=== PATIENT | male | born 1960 | race Caucasian/White ===

== ENCOUNTER 2016-07-09 21:31 | Emergency (ER) | payer MEDICARE ==
[~2016-07-09] VITALS: Ht 157.4 cm
[~2016-07-09 21:31] MED LIST: ASPIRIN81 M1 PO; BACTROBAN CREAM15 GM T; CLEOCIN150 MG PO; FLUOXETINE20 MG PO; GEODON20 MG PO; HUMALOG100 U/ML SC; LANTUS100 U/ML SC; LIPITOR40 MG PO; MIRALAX POWDER17 G1 PO; NEURONTIN100 MG PO; NEURONTIN300 MG PO; PRINIVIL5 MG PO; PROTONIX40 MG PO; PROZAC40 M1 PO; SENOKOT1 TAB PO; TRAZODONE50 MG PO; VISTARIL25 M2 PO; ZOCOR20 MG PO; ZOCOR5 MG PO
== END 2016-07-09 23:27 | disposition home or self-care (01) ==
LOC: ED 21:31
DX: S49.91XA Unspecified injury of right shoulder and upper arm, initial encounter (principal); E78.5 Hyperlipidemia, unspecified; E11.9 Type 2 diabetes mellitus without complications; Z88.0 Allergy status to penicillin; Z79.899 Other long term (current) drug therapy; W18.39XA Other fall on same level, initial encounter; Y93.89 Activity, other specified; Y92.89 Other specified places as the place of occurrence of the external cause; Y99.8 Other external cause status

== ENCOUNTER → 2016-08-04 | Outpatient (CLI) | payer MEDICARE ==
[2016-08-04 16:56] LABS: BASO # 0.1 10*3/uL (0.0-0.1); BASO % 0.7 % (0.0-1.0); EOS # 0.7 10*3/uL (0.0-0.4); EOS % 7.2 % (1.0-4.0); HEMATOCRIT 24.5 % (42.0-52.0); HEMOGLOBIN 7.1 g/dl (14.0-18.0); LYMPH # 1.7 10*3/uL (1.3-4.4); LYMPH % 18.7 % (27.0-41.0); MEAN CELL VOLUME 78.8 fl (80.0-94.0); MEAN CORPUSCULAR HGB 22.8 pg (27.0-31.0); MEAN PLATELET VOLUME 9.2 fl (9.6-12.3); MONO # 0.7 10*3/uL (0.1-1.0); MONO % 7.2 % (3.0-9.0); NEUT % 65.9 % (47.0-73.0); PLATELET COUNT AUTOMATED 421 10*3/uL (130-400); RED BLOOD COUNT 3.11 10*6/uL (4.50-5.90); RED CELL DISTRI WIDTH 16.4 % (0-14.5)
[2016-08-04 17:13] LABS: HEMOGLOBIN A1c 6.6 % (4.8-5.6)
[2016-08-04 17:26] LABS: ALBUMIN 3.1 gm/dl (3.1-4.5); BILIRUBIN, TOTAL 0.3 mg/dl (0.2-1.0); POTASSIUM 4.7 mmol/L (3.5-5.1); TOTAL PROTEIN 7.9 gm/dL (6.4-8.2)
[2016-08-04 17:34] LABS: THYROID STIM HORMONE (HS) 3.1 uIU/ml (0.358-4.75)
== END | disposition home or self-care (01) ==
LOC: LAB 15:52 → CARD 16:00
PROVIDERS: Internal Medicine Cardiovascular Disease
DX: C18.9 Malignant neoplasm of colon, unspecified (principal); D50.0 Iron deficiency anemia secondary to blood loss (chronic); E78.5 Hyperlipidemia, unspecified; E10.65 Type 1 diabetes mellitus with hyperglycemia; R06.09 Other forms of dyspnea

== ENCOUNTER 2016-08-06 18:31 | Inpatient (IN) | payer MEDICARE ==
[~2016-08-06] VITALS: Ht 157.5 cm; Wt 80.5 kg
--- NOTE | ~2016-08-06 | CON ---
[place], [place] REPORT OF CONSULTATION NAME: JAKY LIANG [facility] [id number] UNIT #: [id number] ROOM: 524 DOCTOR: JULY QUISPE MD BIRTHDATE: [birth year] DOS: 08/10/2016 HISTORY OF PRESENT ILLNESS: The patient is a pleasant 55-year-old Euro-Israeli gentleman who had CBC ordered at Dr. Luke's office, which showed anemia; subsequently, he was called in his office and advised him to go to the Emergency Room for further evaluation and management. As per the patient, he has been having normal-appearing stools and normal bowel movement. As we recall, he was sent to [facility] because of infiltrating adenocarcinoma of the rectum, where he was treated by Dr. Adams at [facility]. After that, he underwent colorectal surgery with Dr. Adams and was resected as per the patient, but he lost the followup. We called him a couple of times and made appointments, but he never showed up and was subsequently consulted for further evaluation and management of his anemia and cancer. PAST MEDICAL HISTORY: As discussed above, history of adenocarcinoma of the rectum, status post rectal surgery, history of anxiety, chronic kidney disease, constipation, gastric erosions, hyperlipidemia, moderate protein-calorie malnutrition, neuropathy, obesity, type 2 diabetes mellitus. PAST SURGICAL HISTORY: Rectal surgery, history of strabismus surgery, history of EGD, tonsillectomy, colonoscopy. SOCIAL HISTORY: No smoking, drinking, or drug abuse. FAMILY HISTORY: Mother at age 85, cause CHF. Father at age 50-60, cause cancer. Brother due to diabetes mellitus. ALLERGIES: PENICILLIN. MEDICATIONS: Gabapentin, Vistaril, Lantus insulin, Protonix, Senokot, Zocor. PHYSICAL EXAMINATION: GENERAL: Pleasant gentleman in no apparent distress. VITAL SIGNS: Stable. He is afebrile. ____. LABORATORY DATA: White count of 10.0, hemoglobin 8.2, hematocrit 27.2, platelet count of 330. Chemistries: Glucose of 121, BUN of 22, creatinine of 1.46. EGFR is 50, sodium 140, potassium 4.6. TIBC of 369, iron of 18, saturation of 4. Haptoglobin of 185. B12 of 1457, ferritin 118.9. Folic acid 14.0. ASSESSMENT: 1. Macrocytic anemia. 2. Status post laparoscopy which was negative as per the patient. 3. History of rectal cancer status post resection. 4. Obesity. 5. Diabetes mellitus. 6. Chronic kidney disease. PLAN: The patient was started on parenteral iron. We will get records from Dr. Adams's office at [facility] depending on the further intervention. In [place], [place] REPORT OF CONSULTATION NAME: JAKY LIANG UNIT #: [id number] ROOM: 524 DOCTOR: JULY QUISPE MD BIRTHDATE: [birth year] the meantime, we will review peripheral smears and other records. Follow him as an outpatient. I had detailed discussion with the patient about it, seemed to understand it. Ample time was given to the patient to ask me questions. We will follow. Thanks for consulting and letting me participate in the care of this interesting patient. JULY QUISPE MD CM:CONSTR:REPORT OF CONSULTATION 0844 08/11/16 0121 interface
--- NOTE | ~2016-08-06 | O ---
[place], [place] OPERATIVE NOTE NAME: JAKY LIANG UNIT #: [id number] ROOM: 524 DOCTOR: STEFFI RABAGOHALEY BIRTHDATE: [birth year] DOS: 08/07/2016 GASTROENDOSCOPIC REPORT INDICATIONS: The patient has presented with chief complaint of microcytic anemia of severe degree. Consultation has been dictated. The patient with rectal CA polyp that has been transrectally resectioned. PROCEDURE: Today's procedure part of investigation is panendoscopy and colonoscopy. PREMEDICATIONS: Versed and Diprivan. SCOPE: Olympus forward-viewing colonoscope 10L video. REPORT: After putting the patient in the left lateral position and application of lubricant to the scope, the scope was introduced; thereafter, under direct visualization, advanced through the length of colon without difficulty. Base of the cecum explored, appendiceal orifice identified, and ileocecal valve was defined. At the level of rectal pouch, previous evidence of surgery was seen. There is no mucosal distortion; however. No infiltration, no carcinoma noticed. The patient extubated, tolerated procedure well. IMPRESSION: Complete colonoscopy with normal ileocecal valve. The rectal pouch, evidence of previous polypoid lesion transanal resection history. PLAN AND DISCUSSION: I am going to proceed with panendoscopy. GASTROENDOSCOPIC REPORT INDICATIONS: The patient has presented with chief complaint of anemia, undergoing investigation. PROCEDURE: Today's procedure part of investigation is panendoscopy. PREMEDICATION: Versed and Diprivan. SCOPE: Olympus forward-viewing gastroscope Q10 video. REPORT: After putting the patient in the left lateral position and application of lubricant to the scope, the scope was introduced; thereafter, under direct visualization, advanced through the length of the esophagus without difficulty. Gastric pouch was entered. Duodenal bulb, second and third part within normal limit. Mild gastritis seen. The patient extubated, tolerated procedure well. IMPRESSION: Mild gastritis, status post photographic series. PLAN AND DISCUSSION: This patient needs further workup for his anemia including reticulocyte count, serum ferritin, serum iron level, B12 and folate. If all negative, then he needs a bone marrow biopsy and aspiration. Hematological [place], [place] OPERATIVE NOTE NAME: JAKY LIANG UNIT #: [id number] ROOM: 524 DOCTOR: HALEY KAPADIA MD BIRTHDATE: [birth year] consult recommended. Thank you very much indeed. Sincerely yours, HALEY KAPDAIA MD CM:OPRECORD:OPERATIVE NOTE [id number] HALEY KAPADIA MD 08/07/162055 interface
[2016-08-06 18:36] VITALS: BP 154/59
[2016-08-06 19:16] LABS: BASO # 0.1 10*3/uL (0.0-0.1); BASO % 0.7 % (0.0-1.0); EOS # 0.5 10*3/uL (0.0-0.4); EOS % 5.1 % (1.0-4.0); HEMATOCRIT 23.4 % (42.0-52.0); HEMOGLOBIN 6.7 g/dl (14.0-18.0); LYMPH # 1.6 10*3/uL (1.3-4.4); LYMPH % 15.9 % (27.0-41.0); MEAN CELL VOLUME 78.8 fl (80.0-94.0); MEAN CORPUSCULAR HGB 22.6 pg (27.0-31.0); MEAN CORPUSCULAR HGB CONC 28.6 g/dl (33.0-37.0); MEAN PLATELET VOLUME 9.4 fl (9.6-12.3); MONO # 0.6 10*3/uL (0.1-1.0); MONO % 6.2 % (3.0-9.0); NEUT % 71.8 % (47.0-73.0); PLATELET COUNT AUTOMATED 406 10*3/uL (130-400); RED BLOOD COUNT 2.97 10*6/uL (4.50-5.90); RED CELL DISTRI WIDTH 16.7 % (0-14.5); WHITE BLOOD COUNT 9.8 10*3/uL (4.8-10.8)
[2016-08-06 19:26] LABS: INTERNATIONAL NORM RATIO 1.1 (2.0-3.5); PROTHROMBIN TIME 11.2 SECONDS (9.0-12.4)
[2016-08-06 19:35] LABS: BILIRUBIN, TOTAL 0.3 mg/dl (0.2-1.0); POTASSIUM 4.9 mmol/L (3.5-5.1); TOTAL PROTEIN 7.9 gm/dL (6.4-8.2)
[2016-08-06 20:30] VITALS: BP 138/55
[2016-08-06 20:45] VITALS: BP 139/61
[2016-08-06 21:00] VITALS: BP 139/64
[2016-08-06 21:15] VITALS: BP 145/64
[2016-08-06 21:40] VITALS: BP 153/66
[2016-08-06 23:10] LABS: HEMATOCRIT 27.6 % (42.0-52.0); HEMOGLOBIN 8.3 g/dl (14.0-18.0)
[2016-08-07] VITALS (9 sets, daily range): BP systolic 115–156; BP diastolic 54–70
[2016-08-07 12:30] LABS: MEAN PLATELET VOLUME 9.2 fl (9.6-12.3); WHITE BLOOD COUNT 9.5 10*3/uL (4.8-10.8)
[2016-08-07 12:31] LABS: HEMATOCRIT 25.9 % (42.0-52.0); HEMOGLOBIN 7.9 g/dl (14.0-18.0); MEAN CELL VOLUME 77.5 fl (80.0-94.0); MEAN CORPUSCULAR HGB 23.7 pg (27.0-31.0); MEAN CORPUSCULAR HGB CONC 30.5 g/dl (33.0-37.0); PLATELET COUNT AUTOMATED 358 10*3/uL (130-400); RED BLOOD COUNT 3.34 10*6/uL (4.50-5.90); RED CELL DISTRI WIDTH 16.1 % (0-14.5)
[2016-08-07 12:52] LABS: RETICULOCYTE % 1.26 % (0.50-2.50)
[2016-08-07 12:53] LABS: IRF 6.2 % (2.4-13.3); RET-He 17.1 pg (32.1-37.9)
[2016-08-07 12:56] LABS: BASOPHIL # 0.2 10*3/uL (0-0.1); BASOPHILS 2 % (0-1); EOSINOPHIL # 0.6 10*3/uL (0-0.4); EOSINOPHILS 6 % (1-4); HYPOCHROMIA SLIGHT; INTERNATIONAL NORM RATIO 1.1 (2.0-3.5); LYMPHOCYTE # 1.6 10*3/uL (1.3-4.4); MICROCYTOSIS SLIGHT; MONOCYTE # 0.8 10*3/uL (0.1-1.0); NEUTROPHIL # 6.4 10*3/uL (2.3-7.9); NEUTROPHILS 67 % (47-73); PLATELET SUFFICIENCY NORMAL (NORMAL); POLYCHROMASIA SLIGHT; PROTHROMBIN TIME 11.3 SECONDS (9.0-12.4); TOTAL CELLS COUNTED 100 #CELLS
[2016-08-07 13:10] LABS: HEMOGLOBIN A1c 6.3 % (4.8-5.6)
[2016-08-07 13:23] LABS: MAGNESIUM 1.9 mg/dL (1.5-2.1); POTASSIUM 4.3 mmol/L (3.5-5.1)
[2016-08-07 13:34] LABS: FREE T4 0.84 ng/dl (0.76-1.46); PHOSPHOROUS 3.6 mg/dL (2.5-4.9); THYROID STIM HORMONE (HS) 5.48 uIU/ml (0.358-4.75)
[2016-08-07 14:57] LABS: VITAMIN D, 25-HYDROXY 8.5 ng/mL (30-100)
[2016-08-07 14:58] LABS: FERRITIN 16.3 ng/mL (22.0-322.0); FOLIC ACID 12.44 ng/mL (>5.38)
[2016-08-08] VITALS: BP 137/59
[2016-08-08 04:00] VITALS: BP 137/59
[2016-08-08 05:52] LABS: HEMATOCRIT 25.4 % (42.0-52.0); HEMOGLOBIN 7.7 g/dl (14.0-18.0); MEAN CELL VOLUME 77.4 fl (80.0-94.0); MEAN CORPUSCULAR HGB 23.5 pg (27.0-31.0); MEAN CORPUSCULAR HGB CONC 30.3 g/dl (33.0-37.0); MEAN PLATELET VOLUME 9.7 fl (9.6-12.3); PLATELET COUNT AUTOMATED 357 10*3/uL (130-400); RED BLOOD COUNT 3.28 10*6/uL (4.50-5.90); RED CELL DISTRI WIDTH 16.4 % (0-14.5); RETICULOCYTE % 1.72 % (0.50-2.50); WHITE BLOOD COUNT 9.4 10*3/uL (4.8-10.8)
[2016-08-08 05:55] LABS: IRF 27.7 % (2.4-13.3); RET-He 17.8 pg (32.1-37.9)
[2016-08-08 06:12] LABS: BUN 22 mg/dl (7-24); CARBON DIOXIDE 25 mmol/L (21-32); CHLORIDE 107 mmol/L (98-107); EST GLOM FILT AFRICAN AMERICAN > 60 ml/min; GLUCOSE 121 mg/dL (65-99); IRON 18 ug/dL (65-175); IRON SATURATION 4 %; POTASSIUM 4.6 mmol/L (3.5-5.1); SODIUM 140 mmol/L (136-145); UIBC 351 ug/dL (110-410)
[2016-08-08 06:24] LABS: FERRITIN 15.1 ng/mL (22.0-322.0); FOLIC ACID 14.02 ng/mL (>5.38)
[2016-08-08 07:02] LABS: BASOPHIL # 0.3 10*3/uL (0-0.1); BASOPHILS 3 % (0-1); EOSINOPHIL # 1.1 10*3/uL (0-0.4); EOSINOPHILS 12 % (1-4); HYPOCHROMIA MODERATE; LYMPHOCYTE # 1.6 10*3/uL (1.3-4.4); MICROCYTOSIS SLIGHT; MONOCYTE # 0.5 10*3/uL (0.1-1.0); NEUTROPHIL # 5.9 10*3/uL (2.3-7.9); NEUTROPHILS 63 % (47-73); PLATELET SUFFICIENCY NORMAL (NORMAL); SCHISTOCYTES FEW; TOTAL CELLS COUNTED 100 #CELLS
[2016-08-08 08:00] VITALS: BP 137/57
[2016-08-08 12:00] VITALS: BP 118/73
[2016-08-08 20:00] VITALS: BP 157/61
[2016-08-09] VITALS: BP 148/68
[2016-08-09 06:00] LABS: BASO # 0.1 10*3/uL (0.0-0.1); BASO % 0.8 % (0.0-1.0); EOS # 0.7 10*3/uL (0.0-0.4); EOS % 7.6 % (1.0-4.0); HEMATOCRIT 25.4 % (42.0-52.0); HEMOGLOBIN 7.8 g/dl (14.0-18.0); LYMPH # 2.2 10*3/uL (1.3-4.4); LYMPH % 24.1 % (27.0-41.0); MEAN CORPUSCULAR HGB 23.6 pg (27.0-31.0); MEAN CORPUSCULAR HGB CONC 30.7 g/dl (33.0-37.0); MEAN PLATELET VOLUME 9.2 fl (9.6-12.3); MONO % 11.1 % (3.0-9.0); NEUT % 56.1 % (47.0-73.0); PLATELET COUNT AUTOMATED 295 10*3/uL (130-400); RED CELL DISTRI WIDTH 16.3 % (0-14.5)
[2016-08-09 08:00] VITALS: BP 133/61
[2016-08-09 12:00] VITALS: BP 128/66
[2016-08-09 16:00] VITALS: BP 158/63
[2016-08-09 20:00] VITALS: BP 150/63
[2016-08-09 22:03] LABS: BILIRUBIN NEGATIVE (NEGATIVE); BLOOD 1+ (NEGATIVE); CLARITY CLEAR (CLEAR); COLOR YELLOW (YELLOW); GLUCOSE 1+ (NEGATIVE); KETONE NEGATIVE (NEGATIVE); LEUKO ESTERASE NEGATIVE (NEGATIVE); NITRITE NEGATIVE (NEGATIVE); PROTEIN 2+ (NEGATIVE); SPECIFIC GRAVITY 1.025 (1.005-1.030); UROBILINOGEN 0.2 E.U./dl (0.2-1.0)
[2016-08-09 22:16] LABS: BACTERIA 1+
[2016-08-10] VITALS: BP 138/64
[2016-08-10 06:11] LABS: HEMATOCRIT 27.2 % (42.0-52.0); HEMOGLOBIN 8.2 g/dl (14.0-18.0); MEAN CELL VOLUME 77.5 fl (80.0-94.0); MEAN CORPUSCULAR HGB 23.4 pg (27.0-31.0); MEAN CORPUSCULAR HGB CONC 30.1 g/dl (33.0-37.0); PLATELET COUNT AUTOMATED 330 10*3/uL (130-400); RED BLOOD COUNT 3.51 10*6/uL (4.50-5.90); RED CELL DISTRI WIDTH 16.5 % (0-14.5); RETICULOCYTE % 2.39 % (0.50-2.50)
[2016-08-10 06:17] LABS: IRF 42.5 % (2.4-13.3); RET-He 21.3 pg (32.1-37.9)
[2016-08-10 06:33] LABS: BASOPHIL # 0.1 10*3/uL (0-0.1); BASOPHILS 1 % (0-1); EOSINOPHIL # 0.8 10*3/uL (0-0.4); EOSINOPHILS 8 % (1-4); HYPOCHROMIA SLIGHT; LYMPHOCYTE # 1.5 10*3/uL (1.3-4.4); MICROCYTOSIS SLIGHT; MONOCYTE # 0.5 10*3/uL (0.1-1.0); NEUTROPHIL # 7.1 10*3/uL (2.3-7.9); NEUTROPHILS 71 % (47-73); PLATELET SUFFICIENCY NORMAL (NORMAL); POLYCHROMASIA SLIGHT; TOTAL CELLS COUNTED 100 #CELLS
[2016-08-10 08:00] VITALS: BP 145/63
[2016-08-10] MEDS ORDERED: FEOSOL325 MG PO (10:59)
[2016-08-10] MEDS ORDERED: VITAMIN D50000 I3 PO (10:59)
== END 2016-08-10 13:48 | disposition home or self-care (01) | DRG 378 ==
LOC: ED 18:31 → EDHOLD 20:05 → 5E 20:05
PROVIDERS: Hospitalist; Internal Medicine; Internal Medicine Hematology & Oncology; Nurse Practitioner Family
PROC: 30233N1 Transfusion of Nonautologous Red Blood Cells into Peripheral Vein, Percutaneous Approach (ICD-10-PCS; principal; 2016-08-06)
PROC: 0DJ08ZZ Inspection of Upper Intestinal Tract, Via Natural or Artificial Opening Endoscopic (ICD-10-PCS; 2016-08-07)
PROC: 0DJD8ZZ Inspection of Lower Intestinal Tract, Via Natural or Artificial Opening Endoscopic (ICD-10-PCS; 2016-08-07)
DX: K62.5 Hemorrhage of anus and rectum (principal); E44.0 Moderate protein-calorie malnutrition; E11.22 Type 2 diabetes mellitus with diabetic chronic kidney disease; E11.40 Type 2 diabetes mellitus with diabetic neuropathy, unspecified; F41.9 Anxiety disorder, unspecified; E78.5 Hyperlipidemia, unspecified; D50.9 Iron deficiency anemia, unspecified; E66.09 Other obesity due to excess calories; K25.9 Gastric ulcer, unspecified as acute or chronic, without hemorrhage or perforation; E11.65 Type 2 diabetes mellitus with hyperglycemia; N18.3 Chronic kidney disease, stage 3 (moderate); D47.3 Essential (hemorrhagic) thrombocythemia; D72.810 Lymphocytopenia; E87.8 Other disorders of electrolyte and fluid balance, not elsewhere classified; Z66 Do not resuscitate; K59.00 Constipation, unspecified; K29.70 Gastritis, unspecified, without bleeding; Z82.49 Family history of ischemic heart disease and other diseases of the circulatory system; Z83.3 Family history of diabetes mellitus; Z68.31 Body mass index [BMI] 31.0-31.9, adult; Z85.048 Personal history of other malignant neoplasm of rectum, rectosigmoid junction, and anus; Z80.9 Family history of malignant neoplasm, unspecified; Z88.0 Allergy status to penicillin; Z79.4 Long term (current) use of insulin; Z79.899 Other long term (current) drug therapy

== ENCOUNTER → 2016-08-18 | Outpatient (CLI) | payer MEDICARE ==
[~2016-08-18] MED LIST changes: +FEOSOL325 MG PO; +VITAMIN D50000 I3 PO
[2016-08-18 16:09] LABS: BASO # 0.1 10*3/uL (0.0-0.1); BASO % 0.7 % (0.0-1.0); EOS # 0.5 10*3/uL (0.0-0.4); EOS % 5.4 % (1.0-4.0); HEMATOCRIT 28.2 % (42.0-52.0); HEMOGLOBIN 8.6 g/dl (14.0-18.0); IG # 0.1 10*3/uL (0.0-0.1); LYMPH # 1.6 10*3/uL (1.3-4.4); LYMPH % 18.1 % (27.0-41.0); MEAN CELL VOLUME 78.3 fl (80.0-94.0); MEAN CORPUSCULAR HGB 23.9 pg (27.0-31.0); MEAN CORPUSCULAR HGB CONC 30.5 g/dl (33.0-37.0); MEAN PLATELET VOLUME 10.3 fl (9.6-12.3); MONO # 0.6 10*3/uL (0.1-1.0); NEUT # 6.1 10*3/uL (2.3-7.9); NEUT % 68.2 % (47.0-73.0); PLATELET COUNT AUTOMATED 358 10*3/uL (130-400); RED CELL DISTRI WIDTH 18.1 % (0-14.5)
== END | disposition home or self-care (01) ==
LOC: LAB 15:21
PROVIDERS: Internal Medicine Hematology & Oncology
DX: C20 Malignant neoplasm of rectum (principal); D64.9 Anemia, unspecified; D75.9 Disease of blood and blood-forming organs, unspecified

== ENCOUNTER → 2016-10-06 | Outpatient (CLI) | payer MEDICARE | END | disposition home or self-care (01) | LOC: RAD 15:55 | DX: J81.1 Chronic pulmonary edema (principal); E11.9 Type 2 diabetes mellitus without complications; I10 Essential (primary) hypertension ==

== ENCOUNTER → 2016-11-12 | Outpatient (CLI) | payer MEDICARE ==
[2016-11-12 16:29] LABS: BASO # 0.1 10*3/uL (0.0-0.1); BASO % 0.7 % (0.0-1.0); EOS # 0.5 10*3/uL (0.0-0.4); EOS % 4.6 % (1.0-4.0); HEMATOCRIT 37.4 % (42.0-52.0); HEMOGLOBIN 11.6 g/dl (14.0-18.0); LYMPH # 2.1 10*3/uL (1.3-4.4); LYMPH % 20.2 % (27.0-41.0); MEAN CELL VOLUME 80.4 fl (80.0-94.0); MEAN CORPUSCULAR HGB 24.9 pg (27.0-31.0); MEAN PLATELET VOLUME 9.6 fl (9.6-12.3); MONO # 0.7 10*3/uL (0.1-1.0); MONO % 6.5 % (3.0-9.0); NEUT % 67.6 % (47.0-73.0); PLATELET COUNT AUTOMATED 312 10*3/uL (130-400); RED BLOOD COUNT 4.65 10*6/uL (4.50-5.90); RED CELL DISTRI WIDTH 16.7 % (0-14.5); WHITE BLOOD COUNT 10.4 10*3/uL (4.8-10.8)
[2016-11-12 17:01] LABS: ALBUMIN 3.1 gm/dl (3.1-4.5); CREATININE 1.52 mg/dL (0.70-1.30); POTASSIUM 4.7 mmol/L (3.5-5.1); TOTAL PROTEIN 7.7 gm/dL (6.4-8.2)
[2016-11-12 17:10] LABS: THYROID STIM HORMONE (HS) 1.97 uIU/ml (0.358-4.75)
== END | disposition home or self-care (01) ==
LOC: LAB 15:55
PROVIDERS: Family Medicine
DX: Z12.5 Encounter for screening for malignant neoplasm of prostate (principal); E10.65 Type 1 diabetes mellitus with hyperglycemia; K29.70 Gastritis, unspecified, without bleeding; D50.0 Iron deficiency anemia secondary to blood loss (chronic); R06.02 Shortness of breath

== ENCOUNTER 2016-12-11 15:47 | Emergency (ER) | payer MEDICARE ==
[~2016-12-11] VITALS: Ht 157.4 cm; Wt 83.9 kg
[2016-12-11] MEDS ORDERED: PREDNISONE20 M1 PO (18:57)
[2016-12-11] MEDS ORDERED: ZITHROMAX250 MG PO (18:57)
== END 2016-12-11 19:35 | disposition home or self-care (01) ==
LOC: ED 15:47
DX: J20.9 Acute bronchitis, unspecified (principal); Z98.890 Other specified postprocedural states; Z90.89 Acquired absence of other organs; Z79.899 Other long term (current) drug therapy; Z88.0 Allergy status to penicillin

== ENCOUNTER 2017-01-10 17:12 | Emergency (ER) | payer OTHER ==
[~2017-01-10] VITALS: Ht 157.4 cm; Wt 72.6 kg
[~2017-01-10 17:12] MED LIST changes: +PREDNISONE20 M1 PO; +ZITHROMAX250 MG PO
== END 2017-01-10 18:15 | disposition home or self-care (01) ==
LOC: ED 17:12
DX: E11.649 Type 2 diabetes mellitus with hypoglycemia without coma (principal); N18.9 Chronic kidney disease, unspecified; E11.22 Type 2 diabetes mellitus with diabetic chronic kidney disease; E11.40 Type 2 diabetes mellitus with diabetic neuropathy, unspecified; E78.5 Hyperlipidemia, unspecified; Z88.0 Allergy status to penicillin; Z79.899 Other long term (current) drug therapy; Z79.4 Long term (current) use of insulin

== ENCOUNTER 2017-01-12 16:21 | Inpatient (IN) | payer OTHER ==
[~2017-01-12] VITALS: Ht 157.5 cm; Wt 81.2 kg
[2017-01-12 16:41] VITALS: BP 162/83
--- NOTE | 2017-01-12 16:47 | NUR ---
UPON ARRIVAL TO ED PATIENT WAS NOTICED WITH BEDBUGS DURING TRANSFER IN ROOM.2 BUGS CAPTURED IN SPECIMEN CONTAINER
[2017-01-12 17:19] LABS: BILIRUBIN NEGATIVE (NEGATIVE); BLOOD TRACE-INTACT (NEGATIVE); CLARITY CLEAR (CLEAR); COLOR YELLOW (YELLOW); GLUCOSE NEGATIVE (NEGATIVE); KETONE NEGATIVE (NEGATIVE); LEUKO ESTERASE NEGATIVE (NEGATIVE); NITRITE NEGATIVE (NEGATIVE); SPECIFIC GRAVITY 1.015 (1.005-1.030)
[2017-01-12 17:27] LABS: BASO # 0.1 10*3/uL (0.0-0.1); BASO % 0.5 % (0.0-1.0); EOS # 0.2 10*3/uL (0.0-0.4); EOS % 1.5 % (1.0-4.0); HEMATOCRIT 31.2 % (42.0-52.0); HEMOGLOBIN 9.4 g/dl (14.0-18.0); MEAN CELL VOLUME 82.8 fl (80.0-94.0); MEAN CORPUSCULAR HGB 24.9 pg (27.0-31.0); MEAN CORPUSCULAR HGB CONC 30.1 g/dl (33.0-37.0); MEAN PLATELET VOLUME 9.6 fl (9.6-12.3); MONO # 0.7 10*3/uL (0.1-1.0); MONO % 6.2 % (3.0-9.0); NEUT # 8.5 10*3/uL (2.3-7.9); NEUT % 81.3 % (47.0-73.0); PLATELET COUNT AUTOMATED 311 10*3/uL (130-400); RED BLOOD COUNT 3.77 10*6/uL (4.50-5.90); RED CELL DISTRI WIDTH 15.1 % (0-14.5); WHITE BLOOD COUNT 10.4 10*3/uL (4.8-10.8)
[2017-01-12 17:41] LABS: ALBUMIN 2.9 gm/dl (3.1-4.5); CREATININE 1.74 mg/dL (0.70-1.30); POTASSIUM 4.1 mmol/L (3.5-5.1); TOTAL PROTEIN 7.4 gm/dL (6.4-8.2)
--- NOTE | 2017-01-12 18:16 | NUR ---
REPEAT BSBS 130
--- NOTE | 2017-01-12 19:25 | NUR ---
PT PLACED IN [facility] ROOM, ALL PERSONAL BELONGINGS DOUBLE BAGGED AND GIVEN TO TO TAKE HOME.
[2017-01-12 19:28] VITALS: BP 123/64
--- NOTE | 2017-01-12 20:00 | NUR ---
PT WHILE IN [facility] PULLED OUT IV ACCESS. DRESSING APPLIED AND INTACT.
--- NOTE | 2017-01-12 21:43 | NUR ---
PT REFUSED IV ACCESS AFTER MULTIPLE ATTEMPTS.
[2017-01-12 21:50] VITALS: BP 145/75
--- NOTE | 2017-01-12 21:50 | NUR ---
A 56, admitted to 4E, under the services of BARRETT Luo DO with a diagnosis of HYPOGLYCEMIA, NONCOMPLIANCE WITH MEDICATION REGIMEN. Chief complaint is FOUND UNRESPONSIVE AND HYPOGLYCEMIA. Patient arrived via wheel chair from ER. Initial assessment completed. Vital signs taken and recorded. BARRETT LUO DO notified of admission to the unit. Orders received. See assessment for past medical history, medications and allergies. Patient and/or family oriented to unit. [facility] visitation policy reviewed. Clothing/patient valuable form completed. RAFAEL RIOS
[2017-01-12 22:00] VITALS: BP 145/75
[2017-01-12] MEDS ORDERED: FEROSUL325 MG PO (22:19)
[2017-01-12] MEDS ORDERED: SIMVASTATIN40 MG PO (22:19)
[2017-01-12] MEDS ORDERED: ASPIRIN ADULT L81 M2 PO (22:19)
[2017-01-12] MEDS ORDERED: AMARYL2 MG PO (22:20)
[2017-01-12] MEDS ORDERED: RA SENNA PLUS1 EACH PO (22:20)
[2017-01-12] MEDS ORDERED: FUROSEMIDE20 M1 PO (22:22)
[2017-01-12] MEDS ORDERED: ATARAX,VISTARIL50 MG PO (22:24)
[2017-01-12] MEDS ORDERED: PANTOPRAZOLE SO40 MG PO (22:26)
[2017-01-12] MEDS ORDERED: LANTUS SOL100 UNIT/1 SC (22:28)
--- NOTE | 2017-01-12 23:00 | NUR ---
DR. Cynthia IVEY NOTIFIED OF PATIENT'S C/O INCREASING SHORTNESS OF BREATH OVER THE PAST MONTH, WORSENING FATIGUE, 2 GRAM DECREASE IN HGB OVER THE PAST 2 MONTHS WITH HISTORY OF RECTAL CA, AND NEED FOR AN ORDER FOR BEDSIDE BLOOD SUGARS. RAFAEL RIOS RN
--- NOTE | 2017-01-12 23:23 | NUR ---
MEDICATED WITH PO TYLENOL AND RESTORIL ORDERED PER PT REQUEST FOR C/O HAND PAIN AND INSOMNIA.
[2017-01-13] VITALS: BP 133/74
--- NOTE | 2017-01-13 01:00 | NUR ---
RESTORIL AND TYLENOL EFFECTIVE FOR PAIN AND INSOMNIA. RAFAEL RIOS RN
--- NOTE | 2017-01-13 05:20 | NUR ---
BEDSIDE BLOOD SUGAR 50. PATIENT AWAKENED WITH EASE. PATIENT GIVEN ORANGE JUICE, CHOCOLATE MILK AND ANGELLA CRACKERS WITH PEANUT BUTTER. PATIENT VERBALIZES UNDERSTANDING AND NEED TO EAT. PATIENT CONTINUES TO REFUSE IV ACCESS AT THIS TIME. DR. AFUA IVEY NOTIFIED AND ORDERS RECEIVED TO HOLD ALL DIABETIC MEDICATIONS AND RECHECK CBS IN APPROXIMATELY ONE HOUR. RAFAEL RIOS RN
--- NOTE | 2017-01-13 07:27 | NUR ---
Shift chart check completed.24 HR chart check completed.
[2017-01-13 08:00] VITALS: BP 102/50
--- NOTE | 2017-01-13 08:20 | NUR ---
PT HAD BEEN SLEEPING AND HAD EARLIER REFUSED LABS BECAUSE "NO ONE CAN GET ME" AND BECAUSE "I DON'T GET ANY SLEEP". WOODY FROM LAB IN, HE GAVE HER "ONE TRY" AND SHE WAS ABLE TO OBTAIN HIS LABS. HE'S ALERT/ORIENTED, IN NO DISTRESS. SKIN WARM AND DRY, ORDERING BREAKFAST. NO SIGNS OF HYPOGLYCEMIA. COOPERATIVE. SEE ALL APPROPRIATE INTERVENTIONS.
[2017-01-13 08:35] LABS: BASO % 0.3 % (0.0-1.0); EOS # 0.3 10*3/uL (0.0-0.4); EOS % 3.5 % (1.0-4.0); HEMATOCRIT 27.1 % (42.0-52.0); HEMOGLOBIN 8.3 g/dl (14.0-18.0); LYMPH # 1.5 10*3/uL (1.3-4.4); LYMPH % 17.6 % (27.0-41.0); MEAN CELL VOLUME 81.9 fl (80.0-94.0); MEAN CORPUSCULAR HGB 25.1 pg (27.0-31.0); MEAN CORPUSCULAR HGB CONC 30.6 g/dl (33.0-37.0); MEAN PLATELET VOLUME 9.7 fl (9.6-12.3); MONO # 0.8 10*3/uL (0.1-1.0); MONO % 9.1 % (3.0-9.0); NEUT % 69.2 % (47.0-73.0); PLATELET COUNT AUTOMATED 270 10*3/uL (130-400); RED BLOOD COUNT 3.31 10*6/uL (4.50-5.90); RED CELL DISTRI WIDTH 15.1 % (0-14.5); WHITE BLOOD COUNT 8.7 10*3/uL (4.8-10.8)
[2017-01-13 08:57] LABS: CREATININE 1.71 mg/dL (0.70-1.30); FREE T4 0.97 ng/dl (0.76-1.46); POTASSIUM 4.4 mmol/L (3.5-5.1)
--- NOTE | 2017-01-13 09:00 | NUR ---
Apparatus Operator in to talk to patient. Patient states lives at ome with . There are few steps in the home. Physician: dr rodgers nurse practationer [facility]acy: [facility] Home health services: none Patient's level of ADLs: INDEPENDENT Patient has working utilities: all working DME: none Follow-up physician's appointment after d/c: will be made by hospitalist nurse director upon discharge Does patient want to access PORTAL?: no Discharge plan discussed with patient, patient lives at home with , states he is independent in adls and ambulation, drives, patient states he will be going back home when able and denies any home needs, patient also stated that his doctor has moved and he would like a new doctor, informed him that we would provide him a list of physicians and he could choose a new one to have his follow up appointment made with, patient was inagreement with this, no other needs at this time. ROSAURA ELENA
[2017-01-13 09:03] LABS: THYROID STIM HORMONE (HS) 3.79 uIU/ml (0.358-4.75); VITAMIN D, 25-HYDROXY 16.3 ng/mL (30-100)
--- NOTE | 2017-01-13 11:20 | NUR ---
DR GARCIA NOTIFIED OF PT'S QQJX=[id number]
[2017-01-13 12:00] VITALS: BP 122/62
--- NOTE | 2017-01-13 15:07 | NUR ---
TYLENOL 650MG PO FOR C/O "PAIN ALL OVER". PT ALSO C/O "WHEEZE THAT I'VE HAD FOR 9 MONTHS". WHEN I WENT TO LISTEN TO HIS LUNGS HE SAID "YOU WON'T HEAR IT". DID NOT AUSCULTATE ANY WHEEZE OVER HIS LUNG LAGOS BUT AUDIBLE WHEEZE COULD BE HEARD IN HIS THROAT. I MENTIONED MAYBE [facility] WOULD ORDER HIM A BREATHING TREATMENT AND HE SAID "THEY DON'T WORK ON ME". DR MOORE CALLED AND INFORMED OF PT'S COMPLAINTS. PT HAD ALSO ASKED IF WE HAD RECEIVED HIS RECORDS "FROM [facility]". I ASKED WHEN HE HAD SIGNED A RELEASE IT WAS NOT THIS ADMISSION. THE RESOURCE EFFICIENCY MANAGER IS CHECKING [facility] TO SEE IF THEY HAD COME TO MEDICAL RECORDS.
--- NOTE | 2017-01-13 15:44 | NUR ---
IV STARTED LEFT ARM ON FIRST ATTEMPT TO GIVE ONE LITER OF 0.45NS AT 80CC/HR X 1.
[2017-01-13 16:00] VITALS: BP 125/60
[2017-01-13 20:00] VITALS: BP 102/50
[2017-01-14] VITALS: BP 145/86
--- NOTE | 2017-01-14 01:02 | NUR ---
24 HR chart check completed.
--- NOTE | 2017-01-14 01:04 | NUR ---
24 HR chart check completed.
[2017-01-14 06:08] LABS: BASO % 0.4 % (0.0-1.0); EOS # 0.3 10*3/uL (0.0-0.4); EOS % 2.5 % (1.0-4.0); HEMATOCRIT 28.4 % (42.0-52.0); HEMOGLOBIN 8.7 g/dl (14.0-18.0); LYMPH # 1.3 10*3/uL (1.3-4.4); LYMPH % 12.8 % (27.0-41.0); MEAN CELL VOLUME 82.1 fl (80.0-94.0); MEAN CORPUSCULAR HGB 25.1 pg (27.0-31.0); MEAN CORPUSCULAR HGB CONC 30.6 g/dl (33.0-37.0); MEAN PLATELET VOLUME 9.8 fl (9.6-12.3); MONO # 0.9 10*3/uL (0.1-1.0); MONO % 9.1 % (3.0-9.0); NEUT # 7.7 10*3/uL (2.3-7.9); NEUT % 74.7 % (47.0-73.0); PLATELET COUNT AUTOMATED 281 10*3/uL (130-400); RED BLOOD COUNT 3.46 10*6/uL (4.50-5.90); WHITE BLOOD COUNT 10.3 10*3/uL (4.8-10.8)
--- NOTE | 2017-01-14 06:16 | NUR ---
PATIENT DOES NOT WANT HIS AMARYL AT THIS TIME. STATES HE WANTS TO SLEEP IN.
[2017-01-14 06:31] LABS: CREATININE 1.55 mg/dL (0.70-1.30); POTASSIUM 4.6 mmol/L (3.5-5.1)
[2017-01-14 08:00] VITALS: BP 114/52
--- NOTE | 2017-01-14 09:00 | NUR ---
case management visits with patient, patient denies any home needs at this time
[2017-01-14] MEDS ORDERED: Vitamin D PO (10:24)
[2017-01-14] MEDS ORDERED: LANTUS SOL100 UNIT/1 SQ (10:30)
[2017-01-14] MEDS ORDERED: VITAMIN D22000 UNIT PO (10:32)
[2017-01-14] MEDS ORDERED: NEURONTIN300 MG PO (10:55)
[2017-01-14] MEDS ORDERED: FEROSUL325 MG PO (10:55)
--- NOTE | 2017-01-14 11:57 | NUR ---
Discharge instructions reviewed with patient/family. Patient receptive and verbalizes understanding. Follow-up care arranged. Written instructions given to patient/family. ERNESTINE GOEL
--- NOTE | 2017-01-14 12:30 | NUR ---
PT DISCHARGED AT THIS TIME WITH TO HOME VIA WHEELCHAIR.
== END 2017-01-14 12:30 | disposition home or self-care (01) | DRG 638 ==
LOC: ED 16:21 → EDHOLD 19:42 → 4E 19:42
PROVIDERS: Internal Medicine; Nurse Practitioner Family; Student in an Organized Health Care Education/Training Program; ADMIT Internal Medicine
DX: E11.649 Type 2 diabetes mellitus with hypoglycemia without coma (principal); E44.0 Moderate protein-calorie malnutrition; N17.0 Acute kidney failure with tubular necrosis; B88.8 Other specified infestations; D63.1 Anemia in chronic kidney disease; E11.22 Type 2 diabetes mellitus with diabetic chronic kidney disease; D72.825 Bandemia; N18.3 Chronic kidney disease, stage 3 (moderate); E78.5 Hyperlipidemia, unspecified; E66.09 Other obesity due to excess calories; F41.9 Anxiety disorder, unspecified; R80.1 Persistent proteinuria, unspecified; R31.9 Hematuria, unspecified; E55.9 Vitamin D deficiency, unspecified; E11.40 Type 2 diabetes mellitus with diabetic neuropathy, unspecified; R07.9 Chest pain, unspecified; Z82.49 Family history of ischemic heart disease and other diseases of the circulatory system; Z83.3 Family history of diabetes mellitus; Z79.4 Long term (current) use of insulin; Z80.9 Family history of malignant neoplasm, unspecified; Z88.0 Allergy status to penicillin; Z91.14 Patient's other noncompliance with medication regimen; Z79.82 Long term (current) use of aspirin; Z79.899 Other long term (current) drug therapy; Z68.32 Body mass index [BMI] 32.0-32.9, adult

== ENCOUNTER → 2017-04-20 | Outpatient (CLI) | payer OTHER ==
[~2017-04-20] MED LIST changes: +AMARYL2 MG PO; +ASPIRIN ADULT L81 M2 PO; +ATARAX,VISTARIL50 MG PO; +FEROSUL325 MG PO; +FUROSEMIDE20 M1 PO; +LANTUS SOL100 UNIT/1 SC; +LANTUS SOL100 UNIT/1 SQ; +PANTOPRAZOLE SO40 MG PO; +RA SENNA PLUS1 EACH PO; +SIMVASTATIN40 MG PO; +VITAMIN D22000 UNIT PO; +Vitamin D PO
[2017-04-20 13:43] LABS: HEMATOCRIT 36.7 % (42.0-52.0); HEMOGLOBIN 11.8 g/dl (14.0-18.0); MEAN CELL VOLUME 76.1 fl (80.0-94.0); MEAN CORPUSCULAR HGB 24.5 pg (27.0-31.0); MEAN CORPUSCULAR HGB CONC 32.2 g/dl (33.0-37.0); MEAN PLATELET VOLUME 9.5 fl (9.6-12.3); RED BLOOD COUNT 4.82 10*6/uL (4.50-5.90); RED CELL DISTRI WIDTH 14.6 % (0-14.5); WHITE BLOOD COUNT 8.8 10*3/uL (4.8-10.8)
[2017-04-20 14:10] LABS: ALBUMIN 3.1 gm/dl (3.1-4.5); ALKALINE PHOSPHATASE 131 U/L (45-117); BUN 18 mg/dl (7-24); CHLORIDE 101 mmol/L (98-107); CHOLESTEROL 372 mg/dL (<200); CREATININE 1.41 mg/dL (0.70-1.30); HDL CHOLESTEROL 31 mg/dl (40-60); POTASSIUM 4.5 mmol/L (3.5-5.1); SGOT/AST 13 IU/L (3-35); SGPT/ALT 18 U/L (12-78); SODIUM 136 mmol/L (136-145); TOTAL PROTEIN 7.5 gm/dL (6.4-8.2); TRIGLYCERIDES 460 mg/dl (<150)
== END | disposition home or self-care (01) ==
LOC: LAB 13:24
PROVIDERS: Registered Nurse Flight
DX: E10.22 Type 1 diabetes mellitus with diabetic chronic kidney disease (principal); N18.3 Chronic kidney disease, stage 3 (moderate); E78.5 Hyperlipidemia, unspecified

== ENCOUNTER 2017-06-23 12:48 | Inpatient (IN) | payer OTHER ==
[~2017-06-23] VITALS: Ht 157.4 cm; Wt 69.0 kg
[2017-06-23 12:52] VITALS: BP 157/79
[2017-06-23 13:24] LABS: BASO % 0.7 % (0.0-1.0); EOS # 0.1 10*3/uL (0.0-0.4); EOS % 2.1 % (1.0-4.0); HEMATOCRIT 41.7 % (42.0-52.0); HEMOGLOBIN 13.5 g/dl (14.0-18.0); LYMPH % 16.8 % (27.0-41.0); MEAN CELL VOLUME 76.1 fl (80.0-94.0); MEAN CORPUSCULAR HGB 24.6 pg (27.0-31.0); MEAN CORPUSCULAR HGB CONC 32.4 g/dl (33.0-37.0); MEAN PLATELET VOLUME 9.9 fl (9.6-12.3); MONO # 0.4 10*3/uL (0.1-1.0); MONO % 6.9 % (3.0-9.0); NEUT # 4.3 10*3/uL (2.3-7.9); NEUT % 73.2 % (47.0-73.0); PLATELET COUNT AUTOMATED 260 10*3/uL (130-400); RED BLOOD COUNT 5.48 10*6/uL (4.50-5.90); RED CELL DISTRI WIDTH 14.2 % (0-14.5); WHITE BLOOD COUNT 5.8 10*3/uL (4.8-10.8)
[2017-06-23 13:33] LABS: ACT PARTIAL THROMBO TIME 23.6 SECONDS (20.8-31.5); INTERNATIONAL NORM RATIO 0.9 (2.0-3.5)
[2017-06-23 13:43] LABS: ALBUMIN 3.1 gm/dl (3.1-4.5); ALKALINE PHOSPHATASE 165 U/L (45-117); BUN 12 mg/dl (7-24); CHLORIDE 85 mmol/L (98-107); CREATININE 1.64 mg/dL (0.70-1.30); LIPASE 433 U/L (73-393); POTASSIUM 4.4 mmol/L (3.5-5.1); SGOT/AST 22 IU/L (3-35); SGPT/ALT 17 U/L (12-78); TOTAL PROTEIN 7.6 gm/dL (6.4-8.2)
[2017-06-23 13:55] LABS: BILIRUBIN NEGATIVE (NEGATIVE); BLOOD TRACE-INTACT (NEGATIVE); CLARITY CLEAR (CLEAR); COLOR STRAW (YELLOW); GLUCOSE 3+ (NEGATIVE); KETONE TRACE (NEGATIVE); LEUKO ESTERASE NEGATIVE (NEGATIVE); NITRITE NEGATIVE (NEGATIVE); UROBILINOGEN 0.2 E.U./dl (0.2-1.0)
[2017-06-23 13:59] LABS: SODIUM 118 mmol/L (136-145); TROPONIN I < 0.015 ng/ml (<0.045)
[2017-06-23 14:03] LABS: RBC 0-2 rbc/hpf (0-2)
[2017-06-23 14:04] LABS: BACTERIA TRACE; WBC 0-2 wbc/hpf (0-5)
[2017-06-23 14:41] VITALS: BP 138/75
[2017-06-23 15:45] VITALS: BP 161/85
[2017-06-23 16:03] VITALS: BP 153/81
[2017-06-23 16:24] VITALS: BP 147/69
[2017-06-23 19:52] LABS: BUN 12 mg/dl (7-24); CHLORIDE 98 mmol/L (98-107); CREATININE 1.36 mg/dL (0.70-1.30)
[2017-06-23 20:00] VITALS: BP 133/65
[2017-06-23 20:07] LABS: POTASSIUM 3.3 mmol/L (3.5-5.1); SODIUM 133 mmol/L (136-145)
[2017-06-23 22:18] LABS: BUN 13 mg/dl (7-24); CHLORIDE 107 mmol/L (98-107); CREATININE 1.24 mg/dL (0.70-1.30); POTASSIUM 4.1 mmol/L (3.5-5.1); SODIUM 138 mmol/L (136-145)
[2017-06-24] VITALS: BP 122/62
[2017-06-24 00:33] LABS: BUN 12 mg/dl (7-24); CHLORIDE 107 mmol/L (98-107); CREATININE 1.14 mg/dL (0.70-1.30); POTASSIUM 4.2 mmol/L (3.5-5.1); SODIUM 139 mmol/L (136-145)
[2017-06-24 02:01] LABS: BUN 12 mg/dl (7-24); CHLORIDE 108 mmol/L (98-107); CREATININE 1.01 mg/dL (0.70-1.30); POTASSIUM 3.9 mmol/L (3.5-5.1); SODIUM 139 mmol/L (136-145)
[2017-06-24 04:00] VITALS: BP 122/62
[2017-06-24 06:46] LABS: BASO # 0.1 10*3/uL (0.0-0.1); BASO % 0.7 % (0.0-1.0); EOS # 0.2 10*3/uL (0.0-0.4); LYMPH # 1.6 10*3/uL (1.3-4.4); LYMPH % 22.9 % (27.0-41.0); MEAN CELL VOLUME 77.1 fl (80.0-94.0); MEAN CORPUSCULAR HGB 24.9 pg (27.0-31.0); MEAN CORPUSCULAR HGB CONC 32.3 g/dl (33.0-37.0); MEAN PLATELET VOLUME 9.8 fl (9.6-12.3); MONO # 0.6 10*3/uL (0.1-1.0); MONO % 8.4 % (3.0-9.0); NEUT # 4.5 10*3/uL (2.3-7.9); NEUT % 64.4 % (47.0-73.0); PLATELET COUNT AUTOMATED 234 10*3/uL (130-400); RED BLOOD COUNT 4.02 10*6/uL (4.50-5.90); RED CELL DISTRI WIDTH 14.4 % (0-14.5); WHITE BLOOD COUNT 6.9 10*3/uL (4.8-10.8)
[2017-06-24 07:47] LABS: ALBUMIN 2.3 gm/dl (3.1-4.5); ALKALINE PHOSPHATASE 90 U/L (45-117); BUN 10 mg/dl (7-24); CHLORIDE 108 mmol/L (98-107); CHLORIDE 109 mmol/L (98-107); CHOLESTEROL 298 mg/dL (<200); HDL CHOLESTEROL 23 mg/dl (40-60); PHOSPHOROUS 2.1 mg/dL (2.5-4.9); POTASSIUM 4.2 mmol/L (3.5-5.1); POTASSIUM 4.5 mmol/L (3.5-5.1); SGOT/AST 13 IU/L (3-35); SGPT/ALT 13 U/L (12-78); SODIUM 137 mmol/L (136-145); SODIUM 140 mmol/L (136-145); TOTAL PROTEIN 5.6 gm/dL (6.4-8.2)
[2017-06-24 08:00] VITALS: BP 134/65
[2017-06-24 08:12] LABS: CREATININE 0.92 mg/dL (0.70-1.30)
[2017-06-24 08:30] LABS: TRIGLYCERIDES 457 mg/dl (<150)
[2017-06-24 12:00] VITALS: BP 153/74
[2017-06-24] MEDS ORDERED: LEVEMIR FL100 UNIT/1 SQ ×2 (15:06→15:34)
[2017-06-24 16:00] VITALS: BP 144/74
== END 2017-06-24 15:59 | disposition home or self-care (01) | DRG 637 ==
LOC: ED 12:48 → EDHOLD 15:45 → ICCU 15:45 → 4E 16:02 → 5E 16:03 → 4E 16:12 → ICCU 19:59 → 4E 06-24 14:22
PROVIDERS: Emergency Medicine; Family Medicine; Student in an Organized Health Care Education/Training Program
DX: E11.00 Type 2 diabetes mellitus with hyperosmolarity without nonketotic hyperglycemic-hyperosmolar coma (NKHHC) (principal); N17.0 Acute kidney failure with tubular necrosis; E87.1 Hypo-osmolality and hyponatremia; E87.2 Acidosis; E11.22 Type 2 diabetes mellitus with diabetic chronic kidney disease; E11.40 Type 2 diabetes mellitus with diabetic neuropathy, unspecified; R74.8 Abnormal levels of other serum enzymes; E83.41 Hypermagnesemia; D50.9 Iron deficiency anemia, unspecified; E78.5 Hyperlipidemia, unspecified; F41.9 Anxiety disorder, unspecified; I12.9 Hypertensive chronic kidney disease with stage 1 through stage 4 chronic kidney disease, or unspecified chronic kidney disease; E87.8 Other disorders of electrolyte and fluid balance, not elsewhere classified; F90.9 Attention-deficit hyperactivity disorder, unspecified type; N18.3 Chronic kidney disease, stage 3 (moderate); E78.1 Pure hyperglyceridemia; Z90.89 Acquired absence of other organs; Z79.4 Long term (current) use of insulin; Z83.3 Family history of diabetes mellitus; Z82.49 Family history of ischemic heart disease and other diseases of the circulatory system; Z80.9 Family history of malignant neoplasm, unspecified; Z88.0 Allergy status to penicillin; Z79.82 Long term (current) use of aspirin; Z79.899 Other long term (current) drug therapy; Z85.048 Personal history of other malignant neoplasm of rectum, rectosigmoid junction, and anus

== ENCOUNTER 2018-02-22 18:08 | Inpatient (IN) | payer OTHER ==
[~2018-02-22] VITALS: Ht 157.4 cm; Wt 68.4 kg
--- NOTE | ~2018-02-22 | CON ---
[place], [place] REPORT OF CONSULTATION [id number] UNIT #: [id number] ROOM: [facility] DOCTOR: JOSI TIM MD BIRTHDATE: [birth year] DOS: 02/23/2018 HISTORY OF PRESENT ILLNESS: A 57-year-old gentleman with a history of diabetes and noncompliance, came in to the Emergency Room with significant increased urinary frequency. The patient's blood pressure was significantly elevated. I was consulted because of elevated troponin. Initial troponin was ____, but it increased to 9. The patient never complained of any chest discomfort. The patient also had an abscess in his buttocks, which was drained. White count is elevated to be 22,000. He was febrile earlier and right now he is getting IV antibiotics and his temperature has come down, as mentioned his troponin peaked to 9. I just saw the patient in the Intensive Care Unit. He denies any chest discomfort, no shortness of breath. I am planning to set him up for a heart catheterization tomorrow in [facility] if it is okay with the surgeons and the Infectious Disease. PAST MEDICAL HISTORY: Diabetes, hypertension, hyperlipidemia, noncompliance, history of rectal CA, stage 3 chronic kidney disease, diabetes mellitus and noncompliance. PAST SURGICAL HISTORY: Rectal surgery, colonoscopy, duodenoscopy and tonsillectomy. SOCIAL HISTORY: Denies any smoke or drug abuse. Occasional drinker. FAMILY HISTORY: Positive for coronary artery disease. ALLERGIES: CODEINE AND PENICILLIN. HOME MEDICATIONS: Aspirin, Lasix, insulin and simvastatin. REVIEW OF SYSTEMS: CONSTITUTIONAL: The patient did have fever earlier. CARDIOVASCULAR: Denies any chest discomfort. RESPIRATORY: Denies any shortness of breath. GASTROINTESTINAL: No nausea, no vomiting. Does have a loss of appetite. GENITOURINARY: No dysuria. NEUROLOGICAL: Stable. PHYSICAL EXAMINATION: VITAL SIGNS: Blood pressure today is 103/57, he is in sinus rhythm to sinus tachycardia. NECK: Supple, no JVD. LUNGS: Diminished breath sounds. HEART: Sounds are regular. ABDOMEN: Soft, nontender. NEUROLOGICAL: The patient had the abscess drained in his buttock. LABORATORY DATA: Hemoglobin 10.10, hematocrit 34.5. His troponin is 1.04. The last troponin is 9.7, initially, it was completely normal. EKG shows sinus tachycardia, left ventricular hypertrophy, nonspecific ST-T changes. [place], [place] REPORT OF CONSULTATION NAME: JAKY LIANG UNIT #: [id number] ROOM: [facility] DOCTOR: JOSI TIM MD BIRTHDATE: [birth year] IMPRESSION: 1. Acute non-ST elevation myocardial infarction. 2. Hypertension. 3. Diabetes. 4. Dyslipidemia. 5. Noncompliance. 6. Leukocytosis, bacteria probable abscess. RECOMMENDATIONS: Continue with the present medications. Agree with starting the patient on beta blockers. Start the patient on Plavix 300 mg and heparin drip at this point. Monitor the hemoglobin closely. The patient will be set up for the heart catheterization. Discussed with the patient in detail. I reviewed the echocardiogram. Ejection fraction is 40-45%. We will closely follow up. JOSI TIM MD CM:CONSTR:REPORT OF CONSULTATION 1557 02/24/18 0207 interface
--- NOTE | ~2018-02-22 | EKG ---
[place], [place] ELECTROCARDIOGRAM REPORT NAME: JAKY LIANG UNIT #: [id number] ROOM: [facility] DOCTOR: RICO DRAFT REPORT BIRTHDATE: [birth year] [facility] Test Date: 2018-02-23 Test Time: 06:27:19 Pat Name: JAKY LIANG Department: Room: [facility] Gender: M Internet Security Specialist: Kayce Gama : 1960 Requested By: ALEKSANDR WONG Order Number: [id number] Reading MD: Apolinar Rodriguez MD Measurements Intervals [place] Rate: 105 P: 67 ME: 130 QRS: -12 QRSD: 83 T: 98 QT: 350 QTc: 463 Interpretive Statements Sinus tachycardia Probable LVH with secondary repol abnrm Anterior ST elevation, probably due to LVH Electronically Signed On 02-23-2018 14:14:55 PST by Apolinar Rodriguez MD CM:EKGRPT:ELECTROCARDIOGRAM REPORT 0627 1414 ALEKSANDR CUELLAR DRAFT REPORT ALEKSANDR WONG DO
--- NOTE | ~2018-02-22 | EKG ---
[place], [place] ELECTROCARDIOGRAM REPORT NAME: JAKY LIANG UNIT #: [id number] ROOM: [facility] DOCTOR: RICO DRAFT REPORT BIRTHDATE: [birth year] [facility] Test Date: 2018-02-23 Test Time: 01:02:02 Pat Name: JAKY LIANG Department: Room: [facility] Gender: M Compensation Consulting Manager: Nichole Vick : 1960 Requested By: ALEKSANDR WONG Order Number: [id number] Reading MD: Apolinar Rodriguez MD Measurements Intervals [place] Rate: 112 P: 72 CT: 124 QRS: -6 QRSD: 88 T: 157 QT: 330 QTc: 451 Interpretive Statements Sinus tachycardia Probable LVH with secondary repol abnrm Anterior Q waves, possibly due to LVH Baseline wander in lead(s) V1 Electronically Signed On 02-23-2018 14:14:39 PST by Apolinar Rodriguez MD CM:EKGRPT:ELECTROCARDIOGRAM REPORT 0102 1414 ALEKSANDR CUELLAR DRAFT REPORT ALEKSANDR WONG DO
[~2018-02-22 18:08] MED LIST changes: +LEVEMIR FL100 UNIT/1 SQ; +LEVEMIR100 UNIT/1 SC
[2018-02-22 18:09] VITALS: BP 142/112
[2018-02-22 19:40] LABS: ALBUMIN 2.8 gm/dl (3.1-4.5); CREATININE 2.24 mg/dL (0.70-1.30); POTASSIUM 5.2 mmol/L (3.5-5.1); TOTAL PROTEIN 7.2 gm/dL (6.4-8.2)
[2018-02-22 20:03] LABS: HEMOGLOBIN 12.4 g/dl (14.0-18.0); MEAN CELL VOLUME 77.2 fl (80.0-94.0); MEAN CORPUSCULAR HGB 25.9 pg (27.0-31.0); MEAN CORPUSCULAR HGB CONC 33.5 g/dl (33.0-37.0); MEAN PLATELET VOLUME 10.7 fl (9.6-12.3); PLATELET COUNT AUTOMATED 232 10*3/uL (130-400); RED BLOOD COUNT 4.79 10*6/uL (4.50-5.90); RED CELL DISTRI WIDTH 13.3 % (0-14.5); WHITE BLOOD COUNT 22.1 10*3/uL (4.8-10.8)
[2018-02-22 20:32] LABS: PLATELET SUFFICIENCY NORMAL (NORMAL); TOTAL CELLS COUNTED 100 #CELLS
[2018-02-22 20:33] LABS: MICROCYTOSIS SLIGHT
[2018-02-22 21:47] LABS: BILIRUBIN NEGATIVE (NEGATIVE); BLOOD 2+ (NEGATIVE); CLARITY CLEAR (CLEAR); COLOR YELLOW (YELLOW); GLUCOSE 3+ (NEGATIVE); KETONE TRACE (NEGATIVE); LEUKO ESTERASE NEGATIVE (NEGATIVE); NITRITE NEGATIVE (NEGATIVE); UROBILINOGEN 0.2 E.U./dl (0.2-1.0)
[2018-02-22 22:06] LABS: BACTERIA TRACE
[2018-02-22 23:10] VITALS: BP 130/70
[2018-02-22 23:59] LABS: CPK 222 U/L (39-308)
[2018-02-23] VITALS (9 sets, daily range): BP systolic 85–142; BP diastolic 46–76
[2018-02-23 00:07] LABS: TROPONIN I < 0.015 ng/ml (<0.045)
[2018-02-23 06:17] LABS: ALBUMIN 2.2 gm/dl (3.1-4.5); CREATININE 1.93 mg/dL (0.70-1.30); FREE T4 0.93 ng/dl (0.76-1.46); PHOSPHOROUS 1.8 mg/dL (2.5-4.9); POTASSIUM 4.7 mmol/L (3.5-5.1); TOTAL PROTEIN 6.9 gm/dL (6.4-8.2)
[2018-02-23 06:22] LABS: THYROID STIM HORMONE (HS) 1.27 uIU/ml (0.358-4.75)
[2018-02-23 06:23] LABS: HEMATOCRIT 34.5 % (42.0-52.0); HEMOGLOBIN 10.9 g/dl (14.0-18.0); MEAN CORPUSCULAR HGB 25.9 pg (27.0-31.0); MEAN CORPUSCULAR HGB CONC 31.6 g/dl (33.0-37.0); MEAN PLATELET VOLUME 9.9 fl (9.6-12.3); PLATELET COUNT AUTOMATED 280 10*3/uL (130-400); RED BLOOD COUNT 4.21 10*6/uL (4.50-5.90); RED CELL DISTRI WIDTH 13.6 % (0-14.5); WHITE BLOOD COUNT 16.2 10*3/uL (4.8-10.8)
[2018-02-23 06:24] LABS: MEAN CELL VOLUME 81.9 fl (80.0-94.0)
[2018-02-23 06:32] LABS: ACT PARTIAL THROMBO TIME 32.4 SECONDS (20.8-31.5)
[2018-02-23 06:44] LABS: PLATELET SUFFICIENCY NORMAL (NORMAL); TOTAL CELLS COUNTED 100 #CELLS
[2018-02-23 07:12] LABS: VITAMIN D, 25-HYDROXY 11.3 ng/mL (30-100)
[2018-02-23] MEDS ORDERED: CLOPIDOGREL75 MG PO (17:21)
[2018-02-23] MEDS ORDERED: LOPRESSOR25 MG PO (17:21)
[2018-02-24] VITALS: BP 98/50
[2018-02-24 04:00] VITALS: BP 114/63
== END 2018-02-24 07:24 | disposition short-term general hospital (02) | DRG 871 ==
LOC: ED 18:08 → ICCU 22:18 → EDHOLD 22:18 → 5E 22:18 → ICCU 02-23 07:22
PROVIDERS: Internal Medicine; Physician Assistant
PROC: 0HB8XZZ Excision of Buttock Skin, External Approach (ICD-10-PCS; principal; 2018-02-23)
PROC: 0H98XZZ Drainage of Buttock Skin, External Approach (ICD-10-PCS; principal; 2018-02-23)
DX: A41.9 Sepsis, unspecified organism (principal); R65.20 Severe sepsis without septic shock; L02.31 Cutaneous abscess of buttock; L03.317 Cellulitis of buttock; E11.00 Type 2 diabetes mellitus with hyperosmolarity without nonketotic hyperglycemic-hyperosmolar coma (NKHHC); N17.0 Acute kidney failure with tubular necrosis; I21.4 Non-ST elevation (NSTEMI) myocardial infarction; E87.5 Hyperkalemia; D50.9 Iron deficiency anemia, unspecified; R31.9 Hematuria, unspecified; E11.65 Type 2 diabetes mellitus with hyperglycemia; F41.9 Anxiety disorder, unspecified; E11.40 Type 2 diabetes mellitus with diabetic neuropathy, unspecified; E78.2 Mixed hyperlipidemia; L89.319 Pressure ulcer of right buttock, unspecified stage; E55.9 Vitamin D deficiency, unspecified; E87.8 Other disorders of electrolyte and fluid balance, not elsewhere classified; E66.3 Overweight; I95.9 Hypotension, unspecified; N18.3 Chronic kidney disease, stage 3 (moderate); E11.22 Type 2 diabetes mellitus with diabetic chronic kidney disease; Z79.4 Long term (current) use of insulin; Z79.84 Long term (current) use of oral hypoglycemic drugs; Z88.0 Allergy status to penicillin; Z88.6 Allergy status to analgesic agent; Z83.3 Family history of diabetes mellitus; Z82.49 Family history of ischemic heart disease and other diseases of the circulatory system; Z80.9 Family history of malignant neoplasm, unspecified; Z82.0 Family history of epilepsy and other diseases of the nervous system; Z79.82 Long term (current) use of aspirin; Z79.899 Other long term (current) drug therapy; Z68.27 Body mass index [BMI] 27.0-27.9, adult

== ENCOUNTER 2018-06-23 20:32 | Inpatient (IN) | payer MEDICARE ==
[~2018-06-23] VITALS: Ht 157.5 cm; Wt 61.0 kg
--- NOTE | ~2018-06-23 | CON ---
[place], [place] REPORT OF CONSULTATION NAME: JAKY LIANG UNIT #: [id number] ROOM: 426 DOCTOR: VELMA RABAGONELYNISSA BIRTHDATE: [birth year] DOS: 06/24/2018 CARDIOLOGY CONSULT REASON FOR CONSULTATION: Syncope. HISTORY OF PRESENT ILLNESS: The patient is a 57-year-old with history of CVA, cardiomyopathy, CAD, rectal cancer, who presented for " syncope." The patient is somewhat poor historian, but able to give adequate history and there is no family at bedside. He has been getting dizzy at home, especially upon standing up and has been "passing out at least once a week." Denies any chest pain, palpitations. No nausea, vomiting. No PND. No orthopnea. No fever and chills. No cough. No hemoptysis. No bladder symptoms. The patient had rectal cancer in the past. Cardiology is consulted for his "syncope." The patient denies any chest pain, short of breath, but having occasional dizziness at home. No palpitation or PND or orthopnea. REVIEW OF SYSTEMS: Ten systems are negative except as mentioned above. PAST MEDICAL HISTORY: 1. History of CAD. 2. Cardiomyopathy. 3. Insomnia. 4. Stroke. 5. Anemia. 6. Neuropathy. 7. Chronic kidney disease. 8. Type 2 diabetes. 9. Urinary incompetence. 10. Rectal cancer. SURGICAL HISTORY: History of rectal surgery, for strabismus surgery, colonoscopy, tonsillectomy. SOCIAL HISTORY: The patient does not smoke or drink, does not use illicit drugs. FAMILY HISTORY: Mother at age 85 from heart failure. Father from some cancer in his 50s. Brother from diabetes. ALLERGIES: Reviewed including CODEINE and PENICILLIN. HOME MEDICATIONS: Reviewed. PHYSICAL EXAMINATION: VITAL SIGNS: Blood pressure 128/80, pulse 77, respiration is 18, weight 60.1 kilo, BMI 24.6. GENERAL: Alert, comfortable, in no acute distress. HEAD AND NECK: Neck supple. No distended neck veins. No carotid bruit. Pupils round, equal. No jaundice. Tongue was moist and pharynx clear. [place], [place] REPORT OF CONSULTATION NAME: JAKY LIANG UNIT #: [id number] ROOM: 426 DOCTOR: HETAL CARREON MD BIRTHDATE: [birth year] CHEST: Symmetrical, nontender. LUNGS: Clear to auscultation bilaterally. HEART: Regular rhythm. No S3. No palpable thrills. ABDOMEN: Benign, nontender. Bowel sounds normal. EXTREMITIES: Showed trace to 1+ edema. Distal pulses palpable. SKIN: Warm and dry. No cyanosis. No clubbing. RECTAL: Deferred. GENITOURINARY: Deferred. NEUROLOGIC: Alert, oriented. No focal neurologic deficit. REVIEW OF THE DIAGNOSTIC TESTS: EKG, Labs reviewed, imaging studies reviewed. EKG, normal sinus rhythm, no acute ST-T changes. IMPRESSION: 1. Syncope, details unknown, possible hypotension, to rule out josette or tachyarrhythmias. 2. History of coronary artery disease with recent non-ST elevation myocardial infarction. 3. Cardiomyopathy, ejection fraction of 40-45% by previous echo. 4. Hypertension. 5. Dyslipidemia. 6. Diabetes type 2. 7. History of cerebrovascular accident. 8. History of noncompliance with medications. 9. History of rectal cancer. RECOMMENDATIONS: 1. Currently feeling better. Denies any chest pain, shortness of breath, dizziness. 2. No significant josette or tachyarrhythmias on the monitor. 3. Check orthostatic blood pressures. 4. Check 2D echo for LV function and valvular function. 5. Continue current cardiac medications including aspirin, Plavix, metoprolol and statin. 6. No family at bedside at the time of examination. [place], [place] REPORT OF CONSULTATION NAME: JAKY LIANG UNIT #: [id number] ROOM: 426 DOCTOR: HETAL CARREON MD BIRTHDATE: [birth year] HETAL CARREON MD CM:CONSTR:REPORT OF CONSULTATION 1607 07/11/18 1033 interface
--- NOTE | ~2018-06-23 | EKG ---
[place], [place] ELECTROCARDIOGRAM REPORT NAME: JAKY LIANG UNIT #: [id number] ROOM: 426 DOCTOR: EPIPHANY DRAFT REPORT BIRTHDATE: [birth year] [facility] Test Date: 2018-06-23 Test Time: 21:21:09 Pat Name: JAKY LIANG Department: Room: 426 Gender: M Plumber'S Helper: Leslie Chavez : 1960 Requested By: ANITA MARIE Order Number: [id number] Reading MD: Rita Mena MD Measurements Intervals [place] Rate: 90 P: 72 IL: 140 QRS: -25 QRSD: 91 T: 118 QT: 375 QTc: 459 Interpretive Statements Sinus rhythm Borderline repolarization abnormality Compared to ECG 02/23/2018 06:27:19 Sinus tachycardia no longer present Left ventricular hypertrophy no longer present ST (T wave) deviation no longer present Electronically Signed On 07-01-2018 6:10:59 PDT by Rita Mena MD CM:EKGRPT:ELECTROCARDIOGRAM REPORT 20 ANITA MARIE MD EPIPHANY DRAFT REPORT ANITA MARIE MD
--- NOTE | ~2018-06-23 | PR ---
[place], [place] PROGRESS NOTE NAME: JAKY LIANG UNIT #: [id number] ROOM: 426 DOCTOR: HETAL CARREON MD BIRTHDATE: [birth year] DOS: 06/25/2018 CARDIOLOGY FOLLOWUP NOTE REASON FOR VISIT: Cardiomyopathy and syncope. SUBJECTIVE: The patient is feeling better. Denies any chest pain, shortness of breath or dizziness. No palpitation. No PND. No orthopnea. He is eating his lunch. No bladder or bowel symptoms. No neurologic symptoms. REVIEW OF SYSTEMS: Ten systems negative except as mentioned above. RHYTHM STRIPS: The patient is in sinus rhythm. PHYSICAL EXAMINATION: VITAL SIGNS: Blood pressure 131/83, pulse 64, respiration is 18. GENERAL: Alert, comfort, in no acute distress. HEENT: Pupils are round and equal. No jaundice. NECK: Supple. No distended neck veins. No carotid bruit. CHEST: Symmetrical, nontender. LUNGS: Reveals few scattered rhonchi, but good air entry bilaterally. HEART: Regular rhythm. No S3. No palpable thrills. Grade 1/6 systolic murmur. ABDOMEN: Benign, nontender. Bowel sounds normal. EXTREMITIES: Showed trace edema. Distal pulses palpable. SKIN: Warm and dry. No cyanosis. No clubbing. RECTAL: Deferred. GENITOURINARY: Deferred. DIAGNOSTIC DATA: A 2D echo was reviewed and his LVEF is 40% compared to 40-45 in the past. IMPRESSION: 1. Syncope, etiology unknown, possibly low blood pressure. No recurrence. No significant josette or tachyarrhythmias. 2. Altered mental status, stable. 3. History of cardiomyopathy. No acute congestive heart failure. 4. History of coronary artery disease. 5. History of rectal cancer. RECOMMENDATIONS: 1. Blood pressure and heart rate are stable. 2. Continue current medication. 3. Cardiology will sign off and see as needed. 4. No family at bedside at the time of my examination. [place], [place] PROGRESS NOTE NAME: JAKY LIANG UNIT #: [id number] ROOM: 426 DOCTOR: HETAL CARREON MD BIRTHDATE: [birth year] HETAL CARREON MD CM:MANUELITO 1544 1137 HETAL CARREON MD 06/26/18 1136 interface
[~2018-06-23 20:32] MED LIST changes: +CLOPIDOGREL75 MG PO; +LOPRESSOR25 MG PO
--- NOTE | 2018-06-23 20:35 | NUR ---
PATIENT WAS TAKEN TO DECONTAMINATION ROOM AND TREATED FOR LICE. ALL PERSONAL BELONGINGS WERE PLACED IN A YELLOW BIOHAZARD BAG AND DOUBLED BAG AND LABELED WITH PATIENT NAME. PATIENT TOLERATED WELL.
[2018-06-23 20:37] VITALS: BP 148/84
--- NOTE | 2018-06-23 22:13 | NUR ---
PT GAVE PERMISSION TO SPEAK TO JEFFERY LIANG [phone].
[2018-06-23 22:18] LABS: BASO # 0.1 10*3/uL (0.0-0.1); EOS # 0.3 10*3/uL (0.0-0.4); EOS % 3.4 % (1.0-4.0); HEMATOCRIT 36.4 % (42.0-52.0); HEMOGLOBIN 11.3 g/dl (14.0-18.0); LYMPH # 0.9 10*3/uL (1.3-4.4); LYMPH % 11.1 % (27.0-41.0); MEAN CELL VOLUME 86.7 fl (80.0-94.0); MEAN CORPUSCULAR HGB 26.9 pg (27.0-31.0); MEAN PLATELET VOLUME 9.9 fl (9.6-12.3); MONO # 0.8 10*3/uL (0.1-1.0); MONO % 9.9 % (3.0-9.0); NEUT # 5.7 10*3/uL (2.3-7.9); NEUT % 74.1 % (47.0-73.0); PLATELET COUNT AUTOMATED 338 10*3/uL (130-400); RED CELL DISTRI WIDTH 16.4 % (0-14.5); WHITE BLOOD COUNT 7.7 10*3/uL (4.8-10.8)
[2018-06-23 22:28] LABS: ACT PARTIAL THROMBO TIME 26.9 SECONDS (20.8-31.5); INTERNATIONAL NORM RATIO 1.1 (2.0-3.5)
[2018-06-23 22:36] LABS: ALBUMIN 2.5 gm/dl (3.1-4.5); ALKALINE PHOSPHATASE 107 U/L (45-117); BUN 12 mg/dl (7-24); CHLORIDE 108 mmol/L (98-107); CREATININE 1.34 mg/dL (0.70-1.30); LIPASE 173 U/L (73-393); POTASSIUM 3.6 mmol/L (3.5-5.1); SGOT/AST 9 IU/L (3-35); SGPT/ALT 14 U/L (12-78); SODIUM 138 mmol/L (136-145); TOTAL PROTEIN 6.7 gm/dL (6.4-8.2)
[2018-06-23 22:38] LABS: TROPONIN I < 0.015 ng/ml (<0.045)
--- NOTE | 2018-06-23 22:41 | NUR ---
PATIENT PROVIDED URINAL. UNABLE TO VOID AT THIS TIME. WILL PROMPT SHORTLY. NS 0.9 INFUSING AT 500ML/HR WITHOUT DIFFICULTY.
[2018-06-24 00:21] LABS: BILIRUBIN NEGATIVE (NEGATIVE); BLOOD TRACE-INTACT (NEGATIVE); CLARITY CLOUDY (CLEAR); COLOR YELLOW (YELLOW); GLUCOSE NEGATIVE (NEGATIVE); KETONE TRACE (NEGATIVE); LEUKO ESTERASE TRACE (NEGATIVE); NITRITE NEGATIVE (NEGATIVE); PH 8.5 (5.0-9.0)
[2018-06-24 00:40] LABS: BACTERIA 3+
[2018-06-24 01:20] VITALS: BP 135/83
[2018-06-24 01:55] VITALS: BP 147/85
--- NOTE | 2018-06-24 01:55 | NUR ---
A 57, admitted to 4E, under the services of MARVIN Shane DO with a diagnosis of CHANGE IN MENTAL STATUS. Chief complaint is CHANGE IN MENTAL STATUS. Patient arrived via stretcher from ER. Monitor applied. Initial assessment completed. Vital signs taken and recorded. MARVIN SHANE DO notified of admission to the unit. Orders received. See assessment for past medical history, medications and allergies. Patient and/or family oriented to unit. [facility] visitation policy reviewed. Clothing/patient valuable form completed. HANS WILSON
--- NOTE | 2018-06-24 03:18 | NUR ---
CALLED DR. DELGADO TO INFORM HIM THAT PATIENT DOES NOT KNOW ANYTHING ABOUT HIS HOME MEDICATIONS.
[2018-06-24 05:47] LABS: BUN 11 mg/dl (7-24); CHLORIDE 111 mmol/L (98-107); CREATININE 1.09 mg/dL (0.70-1.30); POTASSIUM 3.7 mmol/L (3.5-5.1); SODIUM 141 mmol/L (136-145); TROPONIN I 0.016 ng/ml (<0.045)
[2018-06-24 05:51] LABS: BASO # 0.1 10*3/uL (0.0-0.1); EOS # 0.4 10*3/uL (0.0-0.4); EOS % 6.1 % (1.0-4.0); HEMATOCRIT 35.2 % (42.0-52.0); LYMPH # 0.9 10*3/uL (1.3-4.4); MEAN CELL VOLUME 86.1 fl (80.0-94.0); MEAN CORPUSCULAR HGB 26.9 pg (27.0-31.0); MEAN CORPUSCULAR HGB CONC 31.3 g/dl (33.0-37.0); MEAN PLATELET VOLUME 9.6 fl (9.6-12.3); MONO # 0.7 10*3/uL (0.1-1.0); MONO % 10.1 % (3.0-9.0); NEUT % 69.4 % (47.0-73.0); PLATELET COUNT AUTOMATED 325 10*3/uL (130-400); RED BLOOD COUNT 4.09 10*6/uL (4.50-5.90); RED CELL DISTRI WIDTH 16.1 % (0-14.5); WHITE BLOOD COUNT 7.2 10*3/uL (4.8-10.8)
--- NOTE | 2018-06-24 07:22 | NUR ---
PHYSICAL THERAPY Nursing screen received. PT orders also received. Thank you. Callie Coreas,PT
--- NOTE | 2018-06-24 07:23 | NUR ---
LIANGJAKY Jered [id number] Please refer to the physician's history and physical for past medical history, comorbid conditions, and allergies. Diagnosis: CHANGE IN MENTAL STATUS Emiliano Score: 18,AT RISK WOUND DESCRIPTIONS: Patient has intact scab areas located to bilateral knee. Patient stated that he fall. No drainage noted at time of assessment. Opp areas noted around scab at time of assessment. No complaints at present time. Surface the patient is resting on: Isoflex SKIN PREVENTION RECOMMENDATION: 1. Pressure redistribution support surface as appropriate 2. Elevate heels 3. Remove boots/TEDS every shift and reapply 4. Head of bed 30 degrees as tolerated 5. Assess nutrition and hydration 6. Manage moisture 7. Avoid the use of containment devices while in bed 8. Use absorptive products on surfaces limit layers of linens on bed 9. Turn and reposition every 1-2 hours in bed and every 1 hour in chair as tolerated 10. Weight shifts every 15 minutes while up in chair 11. Offloading with pillows or device to keep heels elevated off bed 12. Monitor skin at least every shift 13. Inspect under medical devices twice a day WOUND TREATMENT RECOMMENDATIONS: Cleanse bilateral lower extremities with soap and water pat area dry then apply aqauphor daily.
[2018-06-24 08:00] VITALS: BP 128/80
--- NOTE | 2018-06-24 08:58 | NUR ---
Nursing screen received. Occupational Therapy referral also received. Thank you. Blaire Sheets OTR/L
--- NOTE | 2018-06-24 09:37 | NUR ---
Dr. Nix notified of wound care recommendations
--- NOTE | 2018-06-24 10:27 | NUR ---
PHYSICAL THERAPY PAtient incontinent with feces, staff alreted. Callie Sinai Coreas,PT
[2018-06-24 12:00] VITALS: BP 134/65
--- NOTE | 2018-06-24 12:15 | NUR ---
Occupational Therapy evaluation completed on 4 with full eval to follow. Precautions include fall risk, bed alarm, impaired cognition, moderate complexity level 52487 via chart review, testing and evaluation. Recommend home w/ v.s. SNF. Thank you for this referral. Blaire Sheets OTR/l
--- NOTE | 2018-06-24 12:41 | NUR ---
PHYSICAL THERAPY Patient evaluated on 4, full evaluation to follow. Continue with PT as per plan of care with fall,lice and acute debility precautions. May require SNF. PAtient is moderate complexity via chart review, tests and evaluation: 21437. Thank you for this referral. Callie Coreas,PT
[2018-06-24 16:00] VITALS: BP 135/77
[2018-06-24 20:00] VITALS: BP 137/73
[2018-06-25] VITALS: BP 131/83
[2018-06-25 06:38] LABS: PHOSPHOROUS 2.6 mg/dL (2.5-4.9)
--- NOTE | 2018-06-25 08:00 | NUR ---
RESTING IN BED. RESPIRATIONS NON-LABORED. BP 140/90. PULSE OX 99% ON ROOM AIR. VERY DROWSY, UNABLE TO OPEN EYES WHEN NAME IS CALLED. JUST MOANS WHEN QUESTIONS ASKED. DR. LORA HERE ON FLOOR. LIGHTS TURNED ON AND WOKE PATIENT UP. HE THEN STARTED TO SPEAK.
[2018-06-25 08:53] LABS: BASO # 0.1 10*3/uL (0.0-0.1); BASO % 0.7 % (0.0-1.0); EOS # 0.5 10*3/uL (0.0-0.4); EOS % 4.8 % (1.0-4.0); HEMATOCRIT 34.9 % (42.0-52.0); HEMOGLOBIN 10.9 g/dl (14.0-18.0); LYMPH % 10.7 % (27.0-41.0); MEAN CELL VOLUME 85.7 fl (80.0-94.0); MEAN CORPUSCULAR HGB 26.8 pg (27.0-31.0); MEAN CORPUSCULAR HGB CONC 31.2 g/dl (33.0-37.0); MEAN PLATELET VOLUME 10.7 fl (9.6-12.3); MONO # 0.8 10*3/uL (0.1-1.0); MONO % 8.9 % (3.0-9.0); NEUT % 74.4 % (47.0-73.0); PLATELET COUNT AUTOMATED 329 10*3/uL (130-400); RED BLOOD COUNT 4.07 10*6/uL (4.50-5.90); RED CELL DISTRI WIDTH 16.4 % (0-14.5); WHITE BLOOD COUNT 9.5 10*3/uL (4.8-10.8)
[2018-06-25 09:05] LABS: ALBUMIN 2.3 gm/dl (3.1-4.5); ALKALINE PHOSPHATASE 110 U/L (45-117); BUN 14 mg/dl (7-24); CHLORIDE 107 mmol/L (98-107); CREATININE 1.17 mg/dL (0.70-1.30); POTASSIUM 3.4 mmol/L (3.5-5.1); SGOT/AST 10 IU/L (3-35); SGPT/ALT 16 U/L (12-78); SODIUM 138 mmol/L (136-145); TOTAL PROTEIN 6.1 gm/dL (6.4-8.2)
[2018-06-25 12:00] VITALS: BP 144/80
[2018-06-25 16:00] VITALS: BP 139/81
[2018-06-25 20:00] VITALS: BP 136/70
[2018-06-26] VITALS: BP 124/61
[2018-06-26 06:03] LABS: BASO # 0.1 10*3/uL (0.0-0.1); BASO % 0.9 % (0.0-1.0); EOS # 0.5 10*3/uL (0.0-0.4); HEMATOCRIT 36.5 % (42.0-52.0); HEMOGLOBIN 11.3 g/dl (14.0-18.0); LYMPH % 9.1 % (27.0-41.0); MEAN CELL VOLUME 85.3 fl (80.0-94.0); MEAN CORPUSCULAR HGB 26.4 pg (27.0-31.0); MONO # 0.9 10*3/uL (0.1-1.0); MONO % 8.2 % (3.0-9.0); NEUT # 8.2 10*3/uL (2.3-7.9); NEUT % 76.2 % (47.0-73.0); PLATELET COUNT AUTOMATED 332 10*3/uL (130-400); RED BLOOD COUNT 4.28 10*6/uL (4.50-5.90); RED CELL DISTRI WIDTH 16.3 % (0-14.5); WHITE BLOOD COUNT 10.8 10*3/uL (4.8-10.8)
[2018-06-26 06:18] LABS: BUN 18 mg/dl (7-24); CHLORIDE 103 mmol/L (98-107); CREATININE 1.22 mg/dL (0.70-1.30); PHOSPHOROUS 2.6 mg/dL (2.5-4.9); POTASSIUM 3.9 mmol/L (3.5-5.1); SODIUM 135 mmol/L (136-145)
--- NOTE | 2018-06-26 07:15 | NUR ---
REPORT OBTAINED FROM BERTRAM. PATIENT IS RESTING IN BED, EYES CLOSED. NO DISTRESS NOTED, RESP ARE ERND ON ROOM AIR. BED IS LOCKED IN LOWEST POSITION, ALARM MAINTAINED. CALL LIGHT LEFT WITHIN REACH.
[2018-06-26 07:39] LABS: VITAMIN D, 25-HYDROXY 19.8 ng/mL (30-100)
[2018-06-26 08:00] VITALS: BP 140/70
[2018-06-26 12:00] VITALS: BP 113/87; BP 133/72; BP 138/54
--- NOTE | 2018-06-26 14:00 | NUR ---
PATIENT RESTING IN BED, EYES CLOSED. NO DISTRESS NOTED. BED ALARM MAINTAINED. CALL LIGHT LEFT WITHIN REACH.
[2018-06-26 16:00] VITALS: BP 132/66
[2018-06-26 20:00] VITALS: BP 149/73
[2018-06-27] VITALS: BP 139/68
[2018-06-27 06:53] LABS: BUN 19 mg/dl (7-24); CHLORIDE 106 mmol/L (98-107); CREATININE 1.27 mg/dL (0.70-1.30); POTASSIUM 4.2 mmol/L (3.5-5.1); SODIUM 138 mmol/L (136-145)
--- NOTE | 2018-06-27 07:02 | NUR ---
Discussed discharge plan with patient , she would like a referral to [facility]. Faxed referral, patient accepted, 3 night stay complete. Patient ok to go if medically stable for discharge.
[2018-06-27 08:00] VITALS: BP 130/66
--- NOTE | 2018-06-27 09:23 | NUR ---
PHYSICAL THERAPY checked on pt this morning, pt stated he was feeling pain all over and could not participate in PT services at this time, will check back at a later time. RIVAS ALDANA MEDICAL ONCOLOGIST
[2018-06-27 12:00] VITALS: BP 143/67
--- NOTE | 2018-06-27 12:45 | NUR ---
Clincal updates faxed to [facility]ris [facility], patient ok to go when medically stable for discharge.
[2018-06-27] MEDS ORDERED: AMINOPHYLLIN200 MG PO (12:47)
[2018-06-27] MEDS ORDERED: Humalog SQ (12:47)
--- NOTE | 2018-06-27 13:19 | NUR ---
PHYSICAL THERAPY informed consent given, pt identified by name and . pt presented supine in bed. pt required max v/c for walker safety and direction throughout treatment. supine to sit SBA. STS and stand to sit from EOB CGA. Static standing balance 1min without AD CGA pt corrected self with LOB, pt would hold on to AD, then let go when instructed to. Walked 20ft x3 wh walker CGA, 12 ft hand held assist Dm, seated rests in between.STS and stand to sit from chair multiple trials CGA/Dm. TUG test 48sec Dm LOB around turn, pt presented scissor gait. Standing sidesteps to the L and R 6ft x2 v/c for proper technique.Sit to supine CGA, bed mobility SBA.Ended treatment pt supine in bed, call light and belongings in reach, bed alarm on. 1:1 treatment with ELECTRICAL TECH 17min RIVAS ALDANA PTA
--- NOTE | 2018-06-27 13:24 | NUR ---
patient is discharged to [facility], transportation scheduled for 3 PM with [facility] ambulette. bookmobile clerk, nursing and patients all notified
--- NOTE | 2018-06-27 14:18 | NUR ---
NURSE TO NURSE REPORT GIVEN TO SIRISHA AT [facility].
--- NOTE | 2018-06-27 15:10 | NUR ---
Discharge instructions reviewed with patient/family. Patient receptive and verbalizes understanding. Follow-up care TO BE arranged BY FACILITY. Written instructions given to patient/family. HALFWAY AWARE OF ORDERS, PACKET GIVEN TO VO EMPLOYEE. IV CATH REMOVED. FIRST CRUSHER ACCOUNTED FOR AND PLACED IN BIN. BENEDICTO BRODERICK
--- NOTE | 2018-06-27 16:08 | NUR ---
PHYSICAL THERAPY CO-SIGN I approve of the Phyical Therapy notes written above. CHRISTI KWOK PT
== END 2018-06-27 15:10 | disposition other institution (70) | DRG 70 ==
LOC: ED 20:32 → 4E 06-24 00:41
PROVIDERS: Emergency Medicine Emergency Medical Services; Family Medicine; Internal Medicine; Student in an Organized Health Care Education/Training Program; ADMIT Emergency Medicine
DX: G93.41 Metabolic encephalopathy (principal); N17.0 Acute kidney failure with tubular necrosis; E43 Unspecified severe protein-calorie malnutrition; N39.0 Urinary tract infection, site not specified; I50.20 Unspecified systolic (congestive) heart failure; I42.9 Cardiomyopathy, unspecified; R32 Unspecified urinary incontinence; D64.9 Anemia, unspecified; F41.9 Anxiety disorder, unspecified; E11.40 Type 2 diabetes mellitus with diabetic neuropathy, unspecified; N18.3 Chronic kidney disease, stage 3 (moderate); E78.5 Hyperlipidemia, unspecified; E11.65 Type 2 diabetes mellitus with hyperglycemia; R55 Syncope and collapse; I25.10 Atherosclerotic heart disease of native coronary artery without angina pectoris; B96.4 Proteus (mirabilis) (morganii) as the cause of diseases classified elsewhere; E11.22 Type 2 diabetes mellitus with diabetic chronic kidney disease; E87.6 Hypokalemia; W18.30XA Fall on same level, unspecified, initial encounter; Z91.19 Patient's noncompliance with other medical treatment and regimen; I25.2 Old myocardial infarction; Z86.73 Personal history of transient ischemic attack (TIA), and cerebral infarction without residual deficits; Z79.4 Long term (current) use of insulin; Z88.5 Allergy status to narcotic agent; Z88.0 Allergy status to penicillin; Z82.49 Family history of ischemic heart disease and other diseases of the circulatory system; Z83.3 Family history of diabetes mellitus; Z80.8 Family history of malignant neoplasm of other organs or systems; Z82.3 Family history of stroke; Z85.048 Personal history of other malignant neoplasm of rectum, rectosigmoid junction, and anus; Y93.89 Activity, other specified; Y92.89 Other specified places as the place of occurrence of the external cause; Y99.8 Other external cause status; Z79.02 Long term (current) use of antithrombotics/antiplatelets; Z79.899 Other long term (current) drug therapy; Z68.24 Body mass index [BMI] 24.0-24.9, adult

== ENCOUNTER → 2018-11-21 | Outpatient (CLI) | payer MEDICARE, MEDICAID ==
[~2018-11-21] MED LIST changes: +AMINOPHYLLIN200 MG PO; +BASAG SOL SC; +DULCOLAX10 M1 R; +EXEL13.31 T; +EXELON13.3 MG/21 T; +FLEET ENEMA 13133 ML R; +GLUCAGON EMERGEN1 M1 IJ; +GLUTOSE 1537.5 GM PO; +Humalog SQ; +INVEGA3 MG PO; +LEVAQUIN750 M1 PO; +LISINOPRIL2.5 MG PO; +MIRTAZAPINE15 M2 PO; +MOM30 M1 PO; +MUCINEX ER600 MG PO; +NOVOLOG10 ML SC; +PALIPERIDONE ER3 MG PO; +REMERON15 M2 PO; +TOPROL XL50 M1 PO
== END | disposition home or self-care (01) ==
LOC: CT 07:17
DX: J90 Pleural effusion, not elsewhere classified (principal); E11.9 Type 2 diabetes mellitus without complications; M54.5 Low back pain; I51.7 Cardiomegaly

== ENCOUNTER → 2018-11-23 | Day surgery (SDC) | payer MEDICARE, MEDICAID ==
[~2018-11-23] VITALS: Ht 157.4 cm; Wt 61.0 kg
[~2018-11-23] MED LIST changes: -EXEL13.31 T; -EXELON13.3 MG/21 T; -INVEGA3 MG PO; -MIRTAZAPINE15 M2 PO; -PALIPERIDONE ER3 MG PO; -REMERON15 M2 PO
--- NOTE | ~2018-11-23 | O ---
[place], [place] OPERATIVE NOTE NAME: LIANGJAKY Jered UNIT #: [id number] ROOM: DOCTOR: HALEY KAPADIA MD BIRTHDATE: [birth year] DOS: 11/23/2018 INDICATIONS: This is a ____-tpfw-woa patient who has presented with chief complaint of rectal bleed, undergoing investigation for colon cancer screening. ALLERGIES: PENICILLIN. FAMILY HISTORY: Noncontributory. PAST SURGICAL HISTORY: T and A. PAST MEDICAL HISTORY: Depression, diabetes mellitus, and hyperlipidemia. SOCIAL HISTORY: Nonsmoker, nonalcohol consumer. PROCEDURE: Today's procedure part of investigation is colonoscopy plus piecemeal polypectomy plus random biopsy of colon in the rectal anatomy. PREMEDICATION: Propofol. SCOPE: Olympus forward-viewing colonoscope 10L video. REPORT: After putting the patient in left lateral position and application of lubricant to rectal pouch and digital examination, the scope was introduced. Thereafter, under direct visualization, advanced through the length of colon without difficulty. Base of the cecum explored, appendiceal orifice identified, and ileocecal valve defined. No acute pathology seen. Scope was withdrawn back to the rectal pouch. A very small sessile polypoid lesion with piecemeal polypectomy removed. Random biopsy of the rectal pouch was obtained. The patient extubated, tolerated the procedure well. IMPRESSION: Sessile polypoid lesion of the ____ colon. Random biopsy of the rectum. PLAN AND DISCUSSION: Regular diet. ACTIVITY: Ad jj. Supportive management. [place], [place] OPERATIVE NOTE NAME: JAKY LIANG UNIT #: [id number] ROOM: DOCTOR: HALEY KAPADIA MD BIRTHDATE: [birth year] HALEY KAPADIA MD CM:OPRECORD:OPERATIVE NOTE 1145 1256 HALEY KAPADIA MD 11/23/18 1253 interface
[2018-11-23 10:22] VITALS: BP 137/73
[2018-11-23 11:19] VITALS: BP 95/45
[2018-11-23 11:34] VITALS: BP 105/48
[2018-11-23 11:49] VITALS: BP 101/50
== END | disposition home or self-care (01) ==
LOC: SDC 11-21 10:15
DX: Z08 Encounter for follow-up examination after completed treatment for malignant neoplasm (principal); K62.5 Hemorrhage of anus and rectum; D12.8 Benign neoplasm of rectum; K63.5 Polyp of colon; F32.9 Major depressive disorder, single episode, unspecified; E78.5 Hyperlipidemia, unspecified; F41.9 Anxiety disorder, unspecified; I12.9 Hypertensive chronic kidney disease with stage 1 through stage 4 chronic kidney disease, or unspecified chronic kidney disease; N18.3 Chronic kidney disease, stage 3 (moderate); E11.22 Type 2 diabetes mellitus with diabetic chronic kidney disease; I25.2 Old myocardial infarction; Z98.890 Other specified postprocedural states; Z79.899 Other long term (current) drug therapy; Z88.5 Allergy status to narcotic agent; Z85.038 Personal history of other malignant neoplasm of large intestine; Z80.0 Family history of malignant neoplasm of digestive organs; Z83.3 Family history of diabetes mellitus

== ENCOUNTER 2018-12-26 15:24 | Inpatient (IN) | payer MEDICARE, MEDICAID ==
[~2018-12-26] VITALS: Ht 172.7 cm; Wt 70.6 kg
--- NOTE | ~2018-12-26 | CON ---
[place], [place] REPORT OF CONSULTATION NAME: [id number] UNIT #: [id number] ROOM: 525 DOCTOR: PHD MARIA DE JESUS LUI BIRTHDATE: [birth year] DOS: 12/29/2018 HISTORY OF PRESENT ILLNESS: The patient is a 58-year-old male referred by the hospitalist for a Behavioral Health evaluation. At the present time, the patient is on the 5th floor at [facility]. The patient presented to the hospital with altered mental status. He is a resident at [facility]. The patient is and does not have any children. The patient states that he does not have a work history, although he could not elaborate on this. He is a poor historian. He denied alcohol, tobacco and illegal drug use. PAST MEDICAL HISTORY: Anxiety, dementia, diabetic hyperosmolar nonketotic state, heart failure with reduced ejection fraction, history of CVA, history of non-ST elevation myocardial infarction, hyperlipidemia, neuropathy, rectal carcinoma, stage 3 chronic kidney disease, type 2 diabetes, urinary incontinence, vitamin D deficiency. MEDICATIONS: Toprol-XL, Neurontin, Zocor, Feosol, Plavix, Lasix, aspirin enteric coated, Lovenox, Mucinex, Humalog, DuoNeb, Levaquin, Restoril. The patient was lying comfortably in bed, in no apparent distress. He was awake, alert and oriented to person only. Mood was anxious. Affect was blunted. He denied suicidal and homicidal ideation, plan, and intent. Speech was slow. He appeared to have difficulty understanding questions and was slow to respond. He appeared confused. The patient did not appear to be responding to internal stimuli. He struggled to provide historical information. He also demonstrated short-term memory deficits as well. He could not discuss his medical history or medications he is taking. The patient has apparently been declining several medical interventions. In my opinion, he does not appear competent to make informed healthcare decisions. DIAGNOSES: Unspecified neurocognitive disorder, rule out delirium. Unspecified anxiety. PLAN: The patient does not appear competent to make informed healthcare decisions currently. He does not appear to have a healthcare power of title attorney. The patient was eventually agreeable to medical interventions. He may benefit from establishing guardianship or power of title attorney should his cognition continue to improve. [place], [place] REPORT OF CONSULTATION NAME: JAKY LIANG Jered UNIT #: [id number] ROOM: 525 DOCTOR: MARIA DE JESUS, PHD LUI BIRTHDATE: [birth year] Crystal Carvajal, PhD CM:CONSTR:REPORT OF CONSULTATION 1454 12/29/18 2226 interface
--- NOTE | ~2018-12-26 | PROC NOTE ---
[place], [place] PROCEDURE NOTE NAME: [id number] UNIT #: [id number] ROOM: 525 DOCTOR: CHAPARRITA VIDAL BIRTHDATE: [birth year] DOS: 12/28/2018 MODIFIED BARIUM SWALLOW LOCATION: [facility], room is 525, bed 1. ORDERING PHYSICIAN: Ratna Rocha D.O. RADIOLOGIST: Dr. Dias. BACKGROUND INFORMATION: The patient, a 58-year-old male, was seen for a modified barium swallow. This test was ordered to rule out aspiration due to pneumonia. The patient was admitted from the half-way with a change in mental status. His history is significant for CVA, [place], dementia, neuropathy, colon cancer, HTN, DM and ADHD. The patient currently receives a regular diet and thin liquids. For the assessment, he was alert and able to follow commands. Minimal verbalizations were elicited. The patient mostly nodded his head in response to questions. His respiratory status was within normal limits. Oral peripheral examination revealed presence of natural teeth, which were in fair condition. Lingual, labial, and buccal skills were within functional limits in terms of strength, range of motion and coordination. The patient was able to volitionally cough and swallow. METHODS AND MATERIALS USED FOR THE EXAM: The patient was positioned in the lateral plane and the exam was viewed under fluoroscopy. The patient was presented with applesauce mixed with barium presented in half teaspoon amounts, barium-coated cookie given in bite size piece and thin liquid barium taken by cup and straw. ORAL PHASE: The patient achieved adequate labial seal around cup, spoon and straw with no anterior loss. Bolus formation and transit were adequate. Mastication was within functional limits due to dentition. The patient achieved adequate tongue to palate contact. Tongue retraction was adequate. Velar functioning was within normal limits. PHARYNGEAL PHASE: The pharyngeal swallow occurred within a timely manner. Epiglottic function and laryngeal elevation were adequate. No penetration or aspiration occurred with any consistency and there was no residue in the pharynx. ESOPHAGEAL PHASE: This phase of the swallow was not formally assessed during this exam. IMPRESSIONS AND RECOMMENDATIONS: Based upon assessment results, this 58-year-old patient presents with oral and pharyngeal swallowing skills that are within functional limits. There was no penetration or aspiration occurring. Recommend the patient remain on present diet with use of universal safe swallow strategies. No followup therapy is warranted. Results and recommendations were shared with the patient who verbalized understanding. [place], [place] PROCEDURE NOTE NAME: JAKY LIANG UNIT #: [id number] ROOM: [facility] DOCTOR: CHAPARRITA VIDAL BIRTHDATE: [birth year] The patient's nurse will also be informed. Thank you very much for this referral. Should you have any questions regarding this patient, please contact the speech pathologist at [phone]. CHAPARRITA VIDAL CM:PROCNOTE:PROCEDURE NOTE 1525 2315 CHAPARRITA VIDAL
--- NOTE | ~2018-12-26 | EKG ---
[place], [place] ELECTROCARDIOGRAM REPORT NAME: JAKY LIANG UNIT #: [id number] ROOM: 525 DOCTOR: RICO DRAFT REPORT BIRTHDATE: [birth year] [facility] Test Date: 2018-12-26 Test Time: 16:07:46 Pat Name: JAKY LIANG Department: Room: [facility] Gender: M Multigrapher: : 1960 Requested By: SIRISHA MALONEY PA-C Order Number: [id number] Reading MD: Kelly Garcia Measurements Intervals [place] Rate: 57 P: 81 RI: 132 QRS: -9 QRSD: 99 T: 109 QT: 451 QTc: 440 Interpretive Statements Sinus rhythm Probable LVH with secondary repol abnrm Compared to ECG 06/23/2018 21:21:09 No significant changes Electronically Signed On 12-28-2018 9:49:42 PDT by Kelly Garcia CM:EKGRPT:ELECTROCARDIOGRAM REPORT 1607 [id number] SIRISHA GÓMEZ DRAFT REPORT SIRISHA MALONEY PA-C
[2018-12-26 15:24] VITALS: BP 121/51
[~2018-12-26 15:24] MED LIST changes: -GLUCAGON EMERGEN1 M1 IJ; -GLUTOSE 1537.5 GM PO; -LEVAQUIN750 M1 PO; -MUCINEX ER600 MG PO
[2018-12-26 16:19] LABS: BILIRUBIN NEGATIVE (NEGATIVE); BLOOD 2+ (NEGATIVE); CLARITY CLEAR (CLEAR); COLOR YELLOW (YELLOW); GLUCOSE 1+ (NEGATIVE); KETONE NEGATIVE (NEGATIVE); LEUKO ESTERASE NEGATIVE (NEGATIVE); NITRITE NEGATIVE (NEGATIVE); PH 5.5 (5.0-9.0); SPECIFIC GRAVITY >= 1.030 (1.005-1.030); UROBILINOGEN 0.2 E.U./dl (0.2-1.0)
[2018-12-26 16:29] LABS: EPITHELIAL CELLS 0-2; RBC 0-2 rbc/hpf (0-2)
[2018-12-26 16:30] LABS: BACTERIA TRACE; HYALINE CAST 2
[2018-12-26 16:57] LABS: BASO # 0.1 10*3/uL (0.0-0.1); BASO % 0.9 % (0.0-1.0); EOS % 10.9 % (1.0-4.0); HEMATOCRIT 41.8 % (42.0-52.0); HEMOGLOBIN 12.9 g/dl (14.0-18.0); LYMPH # 0.9 10*3/uL (1.3-4.4); LYMPH % 10.2 % (27.0-41.0); MEAN CELL VOLUME 88.4 fl (80.0-94.0); MEAN CORPUSCULAR HGB 27.3 pg (27.0-31.0); MEAN CORPUSCULAR HGB CONC 30.9 g/dl (33.0-37.0); MEAN PLATELET VOLUME 9.8 fl (9.6-12.3); MONO # 1.1 10*3/uL (0.1-1.0); MONO % 11.6 % (3.0-9.0); NEUT % 66.2 % (47.0-73.0); PLATELET COUNT AUTOMATED 229 10*3/uL (130-400); RED BLOOD COUNT 4.73 10*6/uL (4.50-5.90)
[2018-12-26 18:41] VITALS: BP 122/72
[2018-12-26 19:12] LABS: CREATININE 1.65 mg/dL (0.70-1.30)
[2018-12-26 19:13] LABS: TOTAL PROTEIN 7.2 gm/dL (6.4-8.2); TROPONIN I 0.027 ng/ml (<0.045)
[2018-12-26 20:44] VITALS: BP 138/81
[2018-12-26 21:00] VITALS: BP 151/77
[2018-12-26] MEDS ORDERED: GLUCAGON EMERGEN1 M1 IJ (21:31)
[2018-12-26] MEDS ORDERED: GLUTOSE 1537.5 GM PO (21:33)
[2018-12-27] VITALS: BP 122/68
[2018-12-27 06:35] LABS: BASO # 0.1 10*3/uL (0.0-0.1); BASO % 0.8 % (0.0-1.0); EOS % 10.5 % (1.0-4.0); HEMATOCRIT 42.8 % (42.0-52.0); HEMOGLOBIN 13.5 g/dl (14.0-18.0); LYMPH # 0.9 10*3/uL (1.3-4.4); LYMPH % 10.1 % (27.0-41.0); MEAN CELL VOLUME 86.3 fl (80.0-94.0); MEAN CORPUSCULAR HGB 27.2 pg (27.0-31.0); MEAN CORPUSCULAR HGB CONC 31.5 g/dl (33.0-37.0); MEAN PLATELET VOLUME 9.9 fl (9.6-12.3); MONO # 0.8 10*3/uL (0.1-1.0); MONO % 9.3 % (3.0-9.0); NEUT # 6.3 10*3/uL (2.3-7.9); NEUT % 69.2 % (47.0-73.0); PLATELET COUNT AUTOMATED 241 10*3/uL (130-400); RED BLOOD COUNT 4.96 10*6/uL (4.50-5.90); RED CELL DISTRI WIDTH 16.8 % (0-14.5); WHITE BLOOD COUNT 9.1 10*3/uL (4.8-10.8)
[2018-12-27 06:44] LABS: CREATININE 1.55 mg/dL (0.70-1.30); PHOSPHOROUS 3.4 mg/dL (2.5-4.9); POTASSIUM 5.1 mmol/L (3.5-5.1)
[2018-12-27 08:00] VITALS: BP 104/60; BP 145/73
[2018-12-27 12:00] VITALS: BP 152/84
[2018-12-27 16:00] VITALS: BP 152/88
[2018-12-27 20:00] VITALS: BP 150/81
[2018-12-28] VITALS: BP 164/74
[2018-12-28 08:00] VITALS: BP 123/85
[2018-12-28 08:23] LABS: BASO # 0.1 10*3/uL (0.0-0.1); EOS % 13.1 % (1.0-4.0); HEMATOCRIT 39.2 % (42.0-52.0); HEMOGLOBIN 12.6 g/dl (14.0-18.0); LYMPH # 0.9 10*3/uL (1.3-4.4); LYMPH % 11.9 % (27.0-41.0); MEAN CELL VOLUME 85.8 fl (80.0-94.0); MEAN CORPUSCULAR HGB 27.6 pg (27.0-31.0); MEAN CORPUSCULAR HGB CONC 32.1 g/dl (33.0-37.0); MEAN PLATELET VOLUME 9.7 fl (9.6-12.3); MONO # 0.8 10*3/uL (0.1-1.0); MONO % 10.4 % (3.0-9.0); NEUT # 4.9 10*3/uL (2.3-7.9); NEUT % 63.3 % (47.0-73.0); PLATELET COUNT AUTOMATED 226 10*3/uL (130-400); RED BLOOD COUNT 4.57 10*6/uL (4.50-5.90); RED CELL DISTRI WIDTH 16.9 % (0-14.5); WHITE BLOOD COUNT 7.8 10*3/uL (4.8-10.8)
[2018-12-28 08:53] LABS: ALBUMIN 2.8 gm/dl (3.1-4.5); CREATININE 1.55 mg/dL (0.70-1.30); POTASSIUM 4.5 mmol/L (3.5-5.1); TOTAL PROTEIN 6.7 gm/dL (6.4-8.2)
[2018-12-28 12:00] VITALS: BP 149/75
[2018-12-28 16:00] VITALS: BP 99/55
[2018-12-28 20:00] VITALS: BP 152/65
[2018-12-29] VITALS: BP 127/60
[2018-12-29 08:00] VITALS: BP 158/96
[2018-12-29 12:00] VITALS: BP 147/64
[2018-12-29] MEDS ORDERED: MUCINEX ER600 MG PO (13:51)
[2018-12-29] MEDS ORDERED: LEVAQUIN750 M1 PO (13:51)
== END 2018-12-29 16:40 | disposition other institution (70) | DRG 193 ==
LOC: ED 15:24 → 5E 19:37 → EDHOLD 19:37 → 5E 20:04
PROVIDERS: Physician Assistant; Student in an Organized Health Care Education/Training Program; ADMIT Internal Medicine
PROC: BD1BYZZ Fluoroscopy of Mouth/Oropharynx using Other Contrast (ICD-10-PCS; principal; 2018-12-27)
DX: J18.1 Lobar pneumonia, unspecified organism (principal); G93.41 Metabolic encephalopathy; E44.0 Moderate protein-calorie malnutrition; I50.22 Chronic systolic (congestive) heart failure; N18.3 Chronic kidney disease, stage 3 (moderate); F03.90 Unspecified dementia, unspecified severity, without behavioral disturbance, psychotic disturbance, mood disturbance, and anxiety; F41.9 Anxiety disorder, unspecified; E78.5 Hyperlipidemia, unspecified; E11.40 Type 2 diabetes mellitus with diabetic neuropathy, unspecified; D64.9 Anemia, unspecified; E11.22 Type 2 diabetes mellitus with diabetic chronic kidney disease; E87.8 Other disorders of electrolyte and fluid balance, not elsewhere classified; R74.8 Abnormal levels of other serum enzymes; E55.9 Vitamin D deficiency, unspecified; Z86.73 Personal history of transient ischemic attack (TIA), and cerebral infarction without residual deficits; Z88.5 Allergy status to narcotic agent; Z88.0 Allergy status to penicillin; Z83.3 Family history of diabetes mellitus; Z79.82 Long term (current) use of aspirin; Z79.4 Long term (current) use of insulin; Z82.3 Family history of stroke; Z80.9 Family history of malignant neoplasm, unspecified; Z79.899 Other long term (current) drug therapy; Z68.24 Body mass index [BMI] 24.0-24.9, adult; I25.2 Old myocardial infarction

== ENCOUNTER 2019-02-13 10:24 | Inpatient (IN) | payer MEDICARE, MEDICAID ==
[~2019-02-13] VITALS: Ht 152.4 cm; Wt 66.4 kg
[~2019-02-13 10:24] MED LIST changes: +GLUCAGON EMERGEN1 M1 IJ; +GLUTOSE 1537.5 GM PO; +LEVAQUIN750 M1 PO; +MUCINEX ER600 MG PO
[2019-02-13 10:25] VITALS: BP 122/70
--- NOTE | 2019-02-13 10:45 | NUR ---
PT FOLLOWS COMMANDS ABLE TO STAND BY BEDSIDE AND URINATE IN URINAL. NO COMPLAINTS AT THIS TIME.
--- NOTE | 2019-02-13 11:00 | NUR ---
REPORT RECIEVED FROM SEBASTIAN JOHN.
[2019-02-13 11:04] LABS: BILIRUBIN NEGATIVE (NEGATIVE); BLOOD 1+ (NEGATIVE); CLARITY CLEAR (CLEAR); COLOR YELLOW (YELLOW); GLUCOSE NEGATIVE (NEGATIVE); KETONE NEGATIVE (NEGATIVE); LEUKO ESTERASE NEGATIVE (NEGATIVE); NITRITE NEGATIVE (NEGATIVE); SPECIFIC GRAVITY 1.025 (1.005-1.030)
[2019-02-13 11:16] LABS: BACTERIA TRACE; MUCOUS 1+; WBC 0-2 wbc/hpf (0-5)
[2019-02-13 11:16] LABS: ALBUMIN 2.9 gm/dl (3.1-4.5); ALKALINE PHOSPHATASE 162 U/L (45-117); BUN 41 mg/dl (7-24); CHLORIDE 111 mmol/L (98-107); CREATININE 1.65 mg/dL (0.70-1.30); LIPASE 700 U/L (73-393); POTASSIUM 4.9 mmol/L (3.5-5.1); SGOT/AST 20 IU/L (3-35); SGPT/ALT 40 U/L (12-78); SODIUM 137 mmol/L (136-145); TOTAL PROTEIN 7.2 gm/dL (6.4-8.2); TROPONIN I < 0.015 ng/ml (<0.045)
[2019-02-13 11:17] LABS: BASO # 0.1 10*3/uL (0.0-0.1); BASO % 1.1 % (0.0-1.0); EOS # 0.8 10*3/uL (0.0-0.4); EOS % 10.2 % (1.0-4.0); HEMATOCRIT 41.1 % (42.0-52.0); HEMOGLOBIN 13.5 g/dl (14.0-18.0); LYMPH % 11.5 % (27.0-41.0); MEAN CELL VOLUME 83.5 fl (80.0-94.0); MEAN CORPUSCULAR HGB 27.4 pg (27.0-31.0); MEAN CORPUSCULAR HGB CONC 32.8 g/dl (33.0-37.0); MEAN PLATELET VOLUME 9.5 fl (9.6-12.3); MONO # 0.8 10*3/uL (0.1-1.0); MONO % 9.2 % (3.0-9.0); NEUT # 5.6 10*3/uL (2.3-7.9); NEUT % 67.8 % (47.0-73.0); PLATELET COUNT AUTOMATED 284 10*3/uL (130-400); RED BLOOD COUNT 4.92 10*6/uL (4.50-5.90); RED CELL DISTRI WIDTH 14.2 % (0-14.5); WHITE BLOOD COUNT 8.3 10*3/uL (4.8-10.8)
[2019-02-13 11:27] LABS: ACT PARTIAL THROMBO TIME 27.6 SECONDS (20.0-32.1)
--- NOTE | 2019-02-13 11:59 | NUR ---
PT IS RESTING IN BED ON RIGHT SIDE. APPEARS TO BE IN NO ACTE DISTRESS AT THIS TIME. BED IS IJN LOW POSITION. SIDE RAILS UP X2. WILL CONTINUE TO MONITOR.
--- NOTE | 2019-02-13 12:12 | NUR ---
PT TO CT.
[2019-02-13 12:21] VITALS: BP 122/60
--- NOTE | 2019-02-13 12:21 | NUR ---
PT IS BACK FROM CT. HE IS RESTING ON HIS BACK WITH EYES OPEN. VS STABLE. NO SIGNS OF ACUTE DISTRESS AT THIS TIME. BED IS IN LOW POSITION. SIDE RAILS UP X2. WILL CONTINUE TO MONITOR.
--- NOTE | 2019-02-13 13:20 | NUR ---
PT ASSITED WITH USE OF URINAL. VS STABLE AT THIS TIME. PT BACK IN BED WITH SIDE RAILS UP X2. BED IN LOW POSITION. NO SIGNS OF ACUTE DISTRESS AT THIS TIME. WILL CONTINUE TO MONITOR.
--- NOTE | 2019-02-13 13:54 | NUR ---
SWATHI SOLIMAN CONTACTED AND MADE AWARE THAT THE PT WILL BE ADMITTED TO [facility].
[2019-02-13 15:00] VITALS: BP 131/67
--- NOTE | 2019-02-13 15:00 | NUR ---
A 58, admitted to , under the services of GASPER Erickson DO with a diagnosis of ALTERED MENTAL STATUS. Chief complaint is INCREASED CONFUSION. Patient arrived via ambulance from ER. Monitor applied. Initial assessment completed. Vital signs taken and recorded. GASPER ERICKSON DO notified of admission to the unit. Orders received. See assessment for past medical history, medications and allergies. Patient and/or family oriented to unit. [facility] visitation policy reviewed. Clothing/patient valuable form completed. SHANIQUE GAYTAN
--- NOTE | 2019-02-13 15:19 | NUR ---
SIRISHA JOHN AT [facility] NOTIFIED OF ADMISSION [place] [facility].
--- NOTE | 2019-02-13 15:46 | NUR ---
MED REC UPDATED VIA LIST FROM [facility].
[2019-02-13 16:00] VITALS: BP 131/67
--- NOTE | 2019-02-13 17:18 | NUR ---
BSG 60. ASYMPTOMATIC. ORANGE JUICE WITH 2 EXTRA SUGAR PROVIDED. AWAITING DINNER TRAY ARRIVAL. WILL CONTINUE TO MONITOR.
--- NOTE | 2019-02-13 18:00 | NUR ---
BSG RECHECKED FOLLING DINNER. FOUND TO BE 111.
--- NOTE | 2019-02-13 19:38 | NUR ---
[facility]. SAID SHE WOULD NOTIFY THE ON-CALL DOC.
--- NOTE | 2019-02-13 19:44 | NUR ---
PT ASLEEP IN BED. RESPIRATIONS EASY. NO S/S OF DISTRESS NOTED. WILL MONITOR. CALL LIGHT IN REACH. BED ALARM INTACT.
[2019-02-13 20:00] VITALS: BP 141/66
--- NOTE | 2019-02-13 23:15 | NUR ---
NOTIFIED OF PT HAVING TROUBLE SWALLOWING THIN LIQUIDS/SWALLOWING PILLS. NEW ORDER RECEIVED FOR SPEECH THERAPY CONSULT/SWALLOW EVAL.
[2019-02-14] VITALS: BP 154/74
--- NOTE | 2019-02-14 05:37 | NUR ---
PT NOW DOING MUCH BETTER WITH THIN LIQUIDS. DRINKING APPLE JUICE AND SWALLOWING PILL WITHOUT ISSUE. WILL CONTINUE TO MONITOR. CALL LIGHT IN REACH.
[2019-02-14 07:25] LABS: BASO # 0.1 10*3/uL (0.0-0.1); BASO % 0.6 % (0.0-1.0); EOS # 0.8 10*3/uL (0.0-0.4); HEMATOCRIT 52.1 % (42.0-52.0); HEMOGLOBIN 16.6 g/dl (14.0-18.0); LYMPH # 0.9 10*3/uL (1.3-4.4); LYMPH % 9.8 % (27.0-41.0); MEAN CELL VOLUME 84.9 fl (80.0-94.0); MEAN CORPUSCULAR HGB CONC 31.9 g/dl (33.0-37.0); MEAN PLATELET VOLUME 9.9 fl (9.6-12.3); MONO # 0.8 10*3/uL (0.1-1.0); MONO % 8.7 % (3.0-9.0); NEUT # 6.3 10*3/uL (2.3-7.9); NEUT % 71.6 % (47.0-73.0); PLATELET COUNT AUTOMATED 280 10*3/uL (130-400); RED BLOOD COUNT 6.14 10*6/uL (4.50-5.90); RED CELL DISTRI WIDTH 14.5 % (0-14.5); WHITE BLOOD COUNT 8.8 10*3/uL (4.8-10.8)
[2019-02-14 07:31] LABS: ALBUMIN 3.3 gm/dl (3.1-4.5); CREATININE 1.73 mg/dL (0.70-1.30); PHOSPHOROUS 4.1 mg/dL (2.5-4.9); POTASSIUM 4.8 mmol/L (3.5-5.1); TOTAL PROTEIN 7.7 gm/dL (6.4-8.2)
--- NOTE | 2019-02-14 09:00 | NUR ---
Site Specialist in to see patient. He is a LTC resident at [facility]. Discussed senior U stay for medication adjustments due to his depression. He is agreeable. Discussed how his brother, Souleymane, and his , Delmis, are doing and he stated they are doing good. When medically stable he will be discharged to U. land planner following.
--- NOTE | 2019-02-14 09:22 | NUR ---
SPEECH PATHOLOGY Clinical swallowing evaluation completed as per orders due to difficulty swallowing thin liquids. Patient was admitted from [place] with change in mental status. History is significant for dementia, CVA, GERD, rectal/colon CA, ADHD. Patient receives a regular diet and thin liquid. A prior MBS was performed 12/28/18 with results revealing oral/pharyngeal swallowing skills WFL with no penetration or aspiration. For today's assessment patient was alert, sitting at side of bed eating breakfast. He was confused and had difficulty following commands at times and would stare blankly. Patient had already consumed solid food prior to clinician arrival. He was observed eating oatmeal with no overt difficulty displayed. He took thin liquid by cup and straw. No cough, throat clear or wet vocal quality observed but patient was noted to hold liquids in his mouth for a few seconds prior to swallowing. He was encouraged to try to swallow immediately, and not hold the liquid in his mouth, to decrease choking risk. When cued, he was able to take subsequent sips and swallow in a timely manner. Recommend patient remain on regular diet and thin liquid. Recommend that he is monitored for safety at meals and provide cues to swallow liquids as needed. Also recommend use of small bites/sips and alternating liquid and solid. Follow up therapy is recommended focusing on education and adherence to safety precautions. Refer to report in [facility] for further information. Thank you for this referral. CHAPARRITA VIDAL MSCCC-CAR ATTENDANT
--- NOTE | 2019-02-14 12:06 | NUR ---
Spoke with Patient at Bedside. Advised that Dr. Rocha would like for him to go the [facility] for treatment of his Depression. Pt. is receptive and voiced understanding. Written Consent obtained for Voluntary Admission to the [facility] by patient with stated understanding. Witnessed by Nitza Artis RN and this gag writer. Call placed to [facility] and Spoke with Amparo the Data Scientist who states that patient signs his own paperwork at the nursing facility and that patient is own Person. Advised Amparo that Patient would be going to the [facility] possibly today. Updates are required for Resident Review Once Admitted for Significant Change.
--- NOTE | 2019-02-14 12:26 | NUR ---
Called Leticia at [facility] for patient update. Awaiting call back.
--- NOTE | 2019-02-14 13:27 | NUR ---
Notified Souleymane Rose, patients brother who states he is the POA that he was transferred to [facility]. I also notified Souleymane that we need a copy of the POA information. He is to contact Sumeet Bear, resolve any issues with forms and have Sumeet Bear forward a copy to [facility].
--- NOTE | 2019-02-14 13:27 | NUR ---
Nurse to nurse report given to U RN.
--- NOTE | 2019-02-14 13:30 | NUR ---
Discharge instructions reviewed with patient/family. Patient receptive and verbalizes understanding. Follow-up care arranged. Written instructions given to patient/family. Patient was wheeled from 4E by [facility] RN and security with all personal belongings accounted for. BETHANIE AGEE
== END 2019-02-14 13:30 | disposition home health service (06) | DRG 70 ==
LOC: ED 10:24 → 4E 13:13 → EDHOLD 13:13 → 4E 14:37
PROVIDERS: Emergency Medicine; Registered Nurse; ADMIT Internal Medicine
DX: G93.41 Metabolic encephalopathy (principal); I50.23 Acute on chronic systolic (congestive) heart failure; E44.0 Moderate protein-calorie malnutrition; E78.2 Mixed hyperlipidemia; F03.90 Unspecified dementia, unspecified severity, without behavioral disturbance, psychotic disturbance, mood disturbance, and anxiety; E11.22 Type 2 diabetes mellitus with diabetic chronic kidney disease; E11.65 Type 2 diabetes mellitus with hyperglycemia; E55.9 Vitamin D deficiency, unspecified; E87.8 Other disorders of electrolyte and fluid balance, not elsewhere classified; I25.10 Atherosclerotic heart disease of native coronary artery without angina pectoris; K21.9 Gastro-esophageal reflux disease without esophagitis; F41.9 Anxiety disorder, unspecified; E78.5 Hyperlipidemia, unspecified; E11.40 Type 2 diabetes mellitus with diabetic neuropathy, unspecified; Z83.3 Family history of diabetes mellitus; Z82.49 Family history of ischemic heart disease and other diseases of the circulatory system; Z88.5 Allergy status to narcotic agent; Z88.0 Allergy status to penicillin; Z86.73 Personal history of transient ischemic attack (TIA), and cerebral infarction without residual deficits; Z79.4 Long term (current) use of insulin; Z79.82 Long term (current) use of aspirin; Z68.23 Body mass index [BMI] 23.0-23.9, adult; I25.2 Old myocardial infarction

== ENCOUNTER 2019-02-14 11:04 | Inpatient (IN) | payer MEDICARE, MEDICAID ==
[~2019-02-14] VITALS: Ht 152.4 cm
--- NOTE | 2019-02-14 13:26 | NUR ---
JAKY LIANG a 58 year old M admitted via wheel chair from the ADMITTING as a voluntary admission. Arrived on unit at 1326 . ALLERGIES: PENICILLIN, CODEINE. Vital signs are: 97.7-55-20 133/68. The client signed the following forms with stated understanding: Authorization For The Release of Medical Information,Consent to Voluntary Admission and Hospitalization, Consent and Release Forms/Receipt of Rights, Acknowledgement of Advance Directive Information, Behavioral Health Consent Form, and Informed Consent of Medications. Admitted under the services of DHARA Rey MD. A search was conducted and hazardous articles were removed. Client was oriented to the unit. NATALIA ROWELL
[2019-02-14 13:37] VITALS: BP 133/68
--- NOTE | 2019-02-14 13:39 | NUR ---
DR WILKES NOTIFIED OF NEW ADMISSION, MEDICATIONS AND DIAGNOSIS UPDATED FOR [facility]. PATIENT WILL BE UNDER THE CARE OF DR. WILKES.
[2019-02-14 13:56] VITALS: BP 133/68
--- NOTE | 2019-02-14 15:35 | NUR ---
Spoke with Amparo at [facility]. Pt. is LTC at Facility and will return at discharge. WIll provide Clinical Updates tommorow after Pt. is seen by Dr. Fagan.
--- NOTE | 2019-02-14 15:55 | NUR ---
P-CATATONIC AT TIMES, DEPRESSED MOOD I-REDIRECTION WITH 1:1 THERAPEUTIC INTERVENTIONS AND PRESENT REALITY. EDUCATE AND ENCOURAGE MEDICATION COMPLIANCE R-PATIENT CURRENTLY FROM [facility]. PATIENT SLOW TO RESPOND WHEN ASKED SIMPLE QUESTIONS. PATIENT STATES "I CAN'T SEE THE LITTLE WRITING" WHEN REVIEWING ADMISSION PAPER. PATIENT WITH FLAT AFFECT AND BLANK STARES AT TIMES. PATIENT WITH PINK TO REDDENED COCCYX/BUTTOCKS ON ADMISSION, BUT BLANCHABLE. PATIENT WITH SCATTERED OLD ABRASIONS ON BILATERAL LOWER EXTREMITIES ON ADMISSION. PATIENT WITH SMALL SCAB TO RIGHT KNEE ON ADMISSION. PATIENT CONTINENT OF BLADDER AT THIS TIME. PATIENT AMBULATING TO BATHROOM WITH ASSIST X 1 AND WITH UNSTEADY GAIT. P-CONTINUE TO ENCOURAGE MEDICATION COMPLIANCE, CONTINUE TO PRESENT REALITY, ENCOURAGE GROUP THERAPY WHILE AWAKE
--- NOTE | 2019-02-14 17:56 | NUR ---
PSYCHOSOCIAL HX COMPLETED THIS DATE.
[2019-02-14 19:38] VITALS: BP 113/48
--- NOTE | 2019-02-14 20:44 | NUR ---
24 HR chart check completed.
--- NOTE | 2019-02-14 23:52 | NUR ---
P-CONFUSED, SELECTIVELY MUTE I-PT VOIDED IN THE HALLWAY DURING CHANGE OF SHIFT. HE THEN WENT & SAT IN THE DINING ROOM QUIETLY & KEPT TO HIMSELF. SITTING IN THE SAME POSITION FOR BRIEF PERIODS, SELECTIVELY MUTE & VERY LIMITED VERBALLY. ALERT TO PERSON ONLY. DEPRESSED WITH FLAT AFFECT. ATE SNACK WITH MUCH ENCOURAGEMENT. HS BEDSIDE GLUCOSE 257. COMPLIANT TAKING MEDS WHOLE. REQUIRED 1 STAFF ASSIST TO AMBULATE TO HIS ROOM. SLIGHTLY UNSTEADY GAIT. P- CONTINUE TO MONITOR & PROVIDE PHYSICAL & EMOTIONAL SUPPORT NEEDED.
--- NOTE | 2019-02-15 05:39 | NUR ---
SLEPT PAST 2229
--- NOTE | 2019-02-15 05:50 | NUR ---
BEDSIDE GLUCOSE AT THIS TIME 60. PT GIVEN CUP OF OJ & 4 PACKS OF SUGAR. ASYMPTOMATIC.
--- NOTE | 2019-02-15 06:29 | NUR ---
BEDSIDE GLUCOSE RETAKEN AT THIS TIME 131
[2019-02-15 06:55] LABS: BASO # 0.1 10*3/uL (0.0-0.1); BASO % 0.6 % (0.0-1.0); EOS # 0.8 10*3/uL (0.0-0.4); EOS % 6.3 % (1.0-4.0); HEMATOCRIT 48.8 % (42.0-52.0); HEMOGLOBIN 15.6 g/dl (14.0-18.0); LYMPH # 0.9 10*3/uL (1.3-4.4); LYMPH % 7.2 % (27.0-41.0); MEAN CELL VOLUME 84.9 fl (80.0-94.0); MEAN CORPUSCULAR HGB 27.1 pg (27.0-31.0); MEAN PLATELET VOLUME 9.9 fl (9.6-12.3); MONO # 0.9 10*3/uL (0.1-1.0); MONO % 7.1 % (3.0-9.0); NEUT # 9.9 10*3/uL (2.3-7.9); NEUT % 78.6 % (47.0-73.0); PLATELET COUNT AUTOMATED 283 10*3/uL (130-400); RED BLOOD COUNT 5.75 10*6/uL (4.50-5.90); RED CELL DISTRI WIDTH 14.2 % (0-14.5); WHITE BLOOD COUNT 12.6 10*3/uL (4.8-10.8)
[2019-02-15 07:09] LABS: CREATININE 1.95 mg/dL (0.70-1.30); POTASSIUM 4.6 mmol/L (3.5-5.1); TOTAL PROTEIN 7.6 gm/dL (6.4-8.2)
[2019-02-15 07:15] LABS: THYROID STIM HORMONE (HS) 4.39 uIU/ml (0.358-4.75)
[2019-02-15 07:57] VITALS: BP 128/75
--- NOTE | 2019-02-15 08:16 | NUR ---
Occupational therapy orders received as well as nursing screen. Will follow up with patient for completion of an OT evaluation. Thank you for the referral. Marylu Perez, OTR/L
[2019-02-15 08:21] LABS: VITAMIN D, 25-HYDROXY 20.4 ng/mL (30-100)
--- NOTE | 2019-02-15 08:29 | NUR ---
PHYSICAL THERAPY Screed received as well as PT orders will follow thank you Dulce Boone PT
--- NOTE | 2019-02-15 08:48 | NUR ---
DR. BLUM NOTIFIED OF PODIATRY CONSULT.
--- NOTE | 2019-02-15 10:13 | NUR ---
Clinical Updates faxed to [facility] Attn: Amparo [phone]
--- NOTE | 2019-02-15 10:13 | NUR ---
Treatment Plan meeting was held with Dr. Fagan, RN, AT and Taffy Puller. Plan for discharge next week. Pt. will return to [facility] at discharge.
--- NOTE | 2019-02-15 10:35 | NUR ---
SPEECH PATHOLOGY Patient was being followed for safety of swallow while on medical floor. He has been transferred to U due to significant depression. If physician wishes to continue dysphagia services, new orders will need to be obtained. CHAPARRITA VIDAL MSCCC-AUTOMATIC BANDSAW TENDER
--- NOTE | 2019-02-15 12:51 | NUR ---
ASSESSMENT PT ASSESSMENT COMPLETED BUT UNABLE TO ESTABLISH GOALS. PT DID NOT WANT TO BE ASSESSED IN PRIVATE AND WAS DISTRACTED BY ALL OF THE ACTIVITY IN THE DAYROOM. PT WAS DELAYED IN HIS ANSWERS AND ONLY REPLIED YES OR NO. PT STATES THAT HE HAS NO IDEA WHY HE IS HERE
--- NOTE | 2019-02-15 13:15 | NUR ---
Occupational therapy orders received and OT evaluation completed in full on floor three. Patient precautions include fall risk, POLY OPERATOR, future WW use, and decreased balance. Per OT eval, OT recommends SNF. Patient would benefit from continued OT treatment to maximize safety and independence with ADLs and functional mobility/transfers. Patient complexity is moderate, [id number]. Thank you for the referral. Marylu Perez, OTR/L
--- NOTE | 2019-02-15 13:35 | NUR ---
WOODY HOOD CNP ON UNIT TO ASSESS PATIENT.
--- NOTE | 2019-02-15 14:23 | NUR ---
Nutritional Support Services Note: Recommend diet be changed to 1800cal low Na. Currently on cardiac diet. Will follow as needed. Portia Sands Rdn Ld
--- NOTE | 2019-02-15 15:40 | NUR ---
PM GROUP PT ATTENDED AFTERNOON GROUP THERAPY BUT REFUSED TO ANSWER MY REQUEST TO JOIN IN. PT SAT IN A CHAIR AT THE TABLE WATCHING THE MOVIE FOR A WHILE AND THEN FELL ASLEEP SITTING UPRIGHT.
--- NOTE | 2019-02-15 19:32 | NUR ---
P: CONFUSION, SELECTIVELY MUTE, ISOLATIVE AT TIMES. I: ONE ON ONE, REDIRECTION/ORIENTATION, ENCOURAGED SELF CARE WITH ACTIVITIES OF DAILY LIVING, ATTEND AND PARTICIPATE IN GROUP SESSIONS. R: EFFECTIVE. PATIENT ABLE TO ASSIST 1 PERSON WITH ACTIVITIES OF DAILY LIVING, TAKING MEDICATIONS AND FEEDING SELF. PATIENT ATTENDED GROUP SESSIONS, WATCHED TV AND NAPPED. PATIENT PROVIDED WITH ACITVITY, BUILDING BLOCKS. PATIENT IS ALERT TO SELF WITH CONFUSION. SLOW THOUGHT PROCESS NOTED. Q 15 MINUTE SAFETY CHECKS. 1 PERSON ASSIST WITH ACTIVITIES OF DAILY LIVING, CONTINENT OF BOWEL AND BLADDER. SET UP FOR MEALS, INTAKES ARE GOOD WITH ADEQUATE FLUIDS. DENIES ANY HALLUCINATIONS, DELUSIONS. HHI/SI OR PAIN. MOOD IS DEPRESSED, WITHDRAWN AND ISOLATIVE AT TIMES. PATIENT SEEN BY IT INFRASTRUCTURE CONSULTANT THIS AFTERNOON AND TOLERATED WELL. P: CONTINUE TO MONITOR MOOD, ACITIVITIES OF DAILY LIVING, SELF CARE AND MEDICAITON COMPAINCE. PROVIDE ONE ON ONE, REDIRECTION/ORIENTATION AND ASSIST WITH CARE NEEDED.
[2019-02-15 19:56] VITALS: BP 108/68
--- NOTE | 2019-02-15 20:20 | NUR ---
24 HR chart check completed.
--- NOTE | 2019-02-15 21:49 | NUR ---
P-CONFUSED, SELECTIVELY MUTE, ISOLATIVE I-ENCOURAGE VENTILATION OF FEELINGS, PROVIDE EMOTIONAL SUPPORT, ADMINISTER MEDICATIONS, MONITOR SLEEP. I-PT HAS BEEN SITTING IN THE DINING ROOM WATCHING TV & ISOLATIVE TO SELF. SELECTIVELY MUTE & LIMITED VERBALLY. ALERT TO PERSON ONLY. DEPRESSED WITH FLAT AFFECT. ATE SNACK. HS BEDSIDE GLUCOSE 123. COMPLIANT TAKING MEDS WHOLE. REQUIRED 1 STAFF ASSIST TO AMBULATE TO HIS ROOM. SLIGHTLY UNSTEADY GAIT. P- CONTINUE TO MONITOR & PROVIDE PHYSICAL & EMOTIONAL SUPPORT NEEDED.
--- NOTE | 2019-02-16 06:10 | NUR ---
AM BEDSIDE GLUCOSE 90
--- NOTE | 2019-02-16 06:33 | NUR ---
PT SLEPT PAST 2200. INCONTINENT OF BOWEL MOVEMENT THIS AM.
--- NOTE | 2019-02-16 07:35 | NUR ---
OT NOTE Pt was seen this A.M. 1:1 for 15 minute OT session with WOOL BUYER and nursing staff present for observation. Upon arrival pt was sitting upright in the w/c in the dining room. Pt identified by name and and had no complaints at this time. Pt was taken to his bedroom where he completed sit to stand from chair level with Dm. Functional mobility was then completed into the bathroom with modA PROPOSAL REP. Pt had multiple LOB to the R throughout that required modA to correct. Throughout mobility pt required constant verbal prompts for taking bigger steps, following commands, and safety awareness due to reaching for various items for UE support. Pt then stood at commode with Dm initally and after aprox 30 seconds pt then required modA due to retrograde posture and R Lateral lean. Pt had multiple LOB to the R that required maxA to correct. Pt was then sat into the w/c due to now being a maxA after aprox 45 seconds of static standing. Pt sat sink side while washing his hands with Dm due to requiring verbal prompts for sequenicng of task. Pt was left sitting upright in the w/c in the dining room under [facility] staff supervision and body alarm activated for safety. Continue with rec D/C plan to SNF. MAX Castillo/Nery
[2019-02-16 07:57] VITALS: BP 122/62; BP 126/62
--- NOTE | 2019-02-16 08:15 | NUR ---
Treatment Plan meeting was held with Dr. Fagan, RN, AT, INJECTION MOLDING MACHINE OPERATOR-S and Director Clinical Applications in attendance. Plan for discharge next week. Pt. will return to [facility] at discharge.
--- NOTE | 2019-02-16 11:43 | NUR ---
AM GROUP AM GROUP WAS NOT CONDUCTED DUE TO NURSING STUDENTS BEING PRESENT.
--- NOTE | 2019-02-16 13:15 | NUR ---
AND ON UNIT TO SEE PT AT THIS TIME.
--- NOTE | 2019-02-16 15:49 | NUR ---
PM GROUP/BINGO PT CHOSE NOT TO ATTEND AFTERNOON GROUP THERAPY. PT STAYED IN ROOM TO NAP
--- NOTE | 2019-02-16 17:45 | NUR ---
P- CONFUSION, DEPRESSED MOOD, FLAT AFFECT, SELECTIVELY MUTE AT TIMES WITH THOUGHT BLOCKING NOTED, ISOLATIVE/WITHDRAWN, YELLS OUT/DEMANDING AT TIMES. I- ORIENTATION, MOOD AND BEHAVIOR ASSESSED. ASSESSED PT FOR SI/HI, INTENT OR PLAN. ASSESSED PT FOR S/S HALLUCINATIONS, PARANOIA AND/OR DELUSIONS. MEDICATIONS ADMINISTERED PER PHYSICIAN'S ORDERS. ASSISTANCE WITH ADL CARE PROVIDED NEEDED. ENCOURAGED PT TO ATTEND AND PARTICIPATE IN WATT MILIEU GROUPS AND ACTIVITIES. R- PT IS ALERT AND ORIENTED TO PERSON, APPROXIMATE PLACE, STATES HE IS IN THE HOSPITAL BUT UNABLE TO STATE WHICH ONE. NOT ORIENTED TO TIME OR SITUATION. ST/LT MEMORY GAPS NOTED. RESPS EASY AND EVEN ON ROOM AIR. MOOD APPEARS DEPRESSED WITH FLAT AFFECT. SPEECH IS SLOW, THOUGHT BLOCKING NOTED AT TIMES. SELECTIVELY MUTE AT TIMES. PT DENIES SI/HI, INTENT OR PLAN. PT DENIES HALLUCINATIONS, NO RESPONSE TO INTERNAL STIMULI NOTED. NO PARANOIA OR DELUSIONS NOTED. PT IS MEDICATION COMPLIANT WITHOUT DIFFICULTY. PT ISOLATIVE/WITHDRAWN, KEEPS TO SELF, LIMITED INTERACTIONS WITH STAFF/PEERS NOTED. PT OCCASSIONALY YELLS OUT AND BECOMES DEMANDING OF STAFF. NO PHYSICAL AGGRESSION NOTED. NO DISTRESS NOTED. P- PLAN TO CONTINUE CURRENT TREATMENT, CONTINUE TO MONITOR MOOD AND BEHAVIORS, PROVIDE APPROPRIATE REORIENTATION, REDIRECTION AND 1:1 NEEDED. CONTINUE TO ENCOURAGE MEDICATION COMPLIANCE WELL GROUP ATTENDANCE AND PARTICIPATION.
[2019-02-16 19:24] VITALS: BP 130/74
--- NOTE | 2019-02-16 21:00 | NUR ---
24 HR chart check completed.
--- NOTE | 2019-02-16 22:14 | NUR ---
P-CONFUSED, SELECTIVELY MUTE, ISOLATIVE I-ENCOURAGE VENTILATION OF FEELINGS, PROVIDE EMOTIONAL SUPPORT, ADMINISTER MEDICATIONS, MONITOR SLEEP. I-PT HAS BEEN SITTING IN THE DINING ROOM WATCHING TV & ISOLATIVE TO SELF. SELECTIVELY MUTE & LIMITED VERBALLY. ALERT TO PERSON ONLY. DEPRESSED WITH FLAT AFFECT. WHEN ASKED HOW HE FEELS, HE STATED, "SHITTY" BUT WOULD NOT ELABORATE. STATED HE IS AT [facility], [facility] & VERONIQUE IS THE PRESIDENT. ATE SNACK. HS BEDSIDE GLUCOSE 199. COMPLIANT TAKING MEDS WHOLE. REQUIRED 1 STAFF ASSIST TO AMBULATE TO HIS ROOM. SLIGHTLY UNSTEADY GAIT. P- CONTINUE TO MONITOR & PROVIDE PHYSICAL & EMOTIONAL SUPPORT NEEDED.
--- NOTE | 2019-02-17 05:08 | NUR ---
PT HAS SLEPT QUIETLY PAST 2200
--- NOTE | 2019-02-17 06:20 | NUR ---
AM BEDSIDE GLUCOSE 37. REPEAT @ 0618 46. STAT REFLUX BS ORDERED. PT GIVEN 3 ORANGE JUICES, WITH SUGAR, SANDWICH, 2 ANGELLA CRACKERS & PEANUT BUTTER.
--- NOTE | 2019-02-17 06:54 | NUR ---
STAT GLUCOSE REFLUX COMPLETED. REPEAT BEDSIDE GLUCOSE 65. PT ASSYMPTOMATIC.
--- NOTE | 2019-02-17 07:15 | NUR ---
OT NOTE Pt was seen this A.M. 1:1 for 15 minute OT session with OPERATIONS LIEUTENANT and nursing staff present for observation only. Upon arrival pt was sitting upright in the w/c in the bathroom. Pt identified by name and and had no complaints at si time. Pt completed sit to stand from chair level with Dm followed by standing pivot from the w/c to the standard commode with modA due to LOB forwards and to the R that required modA to correct. Pt doffed and dooned new pants with modA. Sit to stand completed from the commode with Dm. Pt then stood sink side while washing his hands, completing hair care, and washing his face with modA due to severe retrograde posture and multiple LOB to the R. Pt was left sitting upright in the w/c in the dining room under [facility] staff supervision and body alarm activated for safety. Continue with rec D/C plan to SNF. ARPIT Castillo
[2019-02-17 08:30] VITALS: BP 123/84
--- NOTE | 2019-02-17 08:38 | NUR ---
Treatment Plan meeting was held with Dr. Fagan, RN, AT, MARKETING ACCOUNT MANAGER-S and Barrel Ribs Solderer in attendance. Plan for discharge Wednesday. Pt. to return to [facility].
--- NOTE | 2019-02-17 08:41 | NUR ---
Spoke with Amparo at [facility]. Notified of plans to discharge Wednesday. Clinical Updates faxed to Facility. [phone].
--- NOTE | 2019-02-17 11:19 | NUR ---
KATIA HELD PER WOODY HOOD NP.
--- NOTE | 2019-02-17 11:39 | NUR ---
AM GROUP/EXERCISE AND BRAIN GAMES PT WAS PRESENT FOR MORNING GROUP THERAPY [facility]. PT REFUSES TO PARTICIPATE AND DECLINES ANY ACTIVITY OFFERED.
--- NOTE | 2019-02-17 13:25 | NUR ---
PHYSICAL THERAPY Kerrie completed pt a moderate level of complexity [id number] recomend return to LTC with f/u therapy as appropriate. PT to work on transfers, ambulation with AD, ROM and strengthening. Dulce Boone PT
--- NOTE | 2019-02-17 13:32 | NUR ---
SPEECH THERAPY Orders receiced for bedside swallowing evaluation. Patient was previously receiving speech therapy treatment before transfer to [facility]. Upon arrival to floor, clinican spoke with patient aide who monitors and assists during meals. She reports no episodes of coughing or choking, stating that he does well during meals. She reported patient will hold liquids in his mouth at times, which was observed during previous treatment cycle. Aide additionally reported that he was becoming tired during lunch and was assisted back to his room. Upon clinicain arrival to room, he was resting soudly. Will attempt evaluation at later time/date. Thank you for your consultation. Vannesa Mckinney MA CCC-HEAD WAITER/WAITRESS
--- NOTE | 2019-02-17 15:26 | NUR ---
WOODY HOOD ON UNIT TO ASSESS PT.
--- NOTE | 2019-02-17 15:38 | NUR ---
PM GROUP/LEISURE INTERESTS PT DID NOT ATTEND AFTERNOON GROUP THERAPY. PT WAS IN BED NAPPING
--- NOTE | 2019-02-17 18:34 | NUR ---
Patient resting quietly with no c/o discomfort. Respirations easy and regular. Vital signs stable. No overt distress. GIVENS,ZENA
[2019-02-17 19:44] VITALS: BP 116/56
--- NOTE | 2019-02-18 04:05 | NUR ---
CALLED, UPDATED ON PATIENTS BSG AT 0300 OF 55, ASYMPTOMATIC. PT PROVIDED WITH ORANGE JUICE WITH SUGAR AND PEANUT BUTTER. PT RECHECKED AT 0400 WITH RESULT OF 101. NO NEW ORDERS RECEIVED.
--- NOTE | 2019-02-18 04:58 | NUR ---
P-CONFUSION, DEPRESSED MOOD I-ASSESS ORIENTATION, MOOD, BEHAVIOR. PROVIDE 1:1 WITH THERAPEUTIC INTERVENTIONS. PRESENT REALITY AND REDIRECT NEEDED. ENCOURAGE MEDICATION COMPLIANCE AND EDUCATE. MONITOR SLEEP. R- PATIENT ALERT AND ORIENTED TO SELF, CONFUSED. PT ISOLATIVE TO SELF, GUARDED. DURING 1:1 PATIENT STATED HE WAS "SO SO". PT VOICES NO SI/HI, HALLUCINATIONS, OR PAIN. NO NOTED RESPONDING TO INTERNAL STIMULI. MEDICATION COMPLIANT WITHOUT DIFFICULTY, UNABLE TO EDUCATE DUE TO COGNITION. ALL NEEDS ANTICIPATED BY STAFF, HOC PROVIDED WITHOUT DIFFICULTY. PT MOBILIZES SELF IN MERRY WALKER, X1 ASSIST. SLEPT APPROX 7 HOURS THIS SHIFT WITH X1 BRIEF AWAKENING. NO SIGNS OR SYMPTOMS OF DISTRESS NOTED. P-CONTINUE TO MONITOR MOODS AND BEHAVIORS. PROVIDE 1:1 WITH THERAPEUTIC INTERVENTIONS. ENCOURAGE MEDICATION COMPLIANCE. MAINTAIN Q 15 MIN CHECKS.
[2019-02-18 08:14] VITALS: BP 108/60
--- NOTE | 2019-02-18 08:23 | NUR ---
Patient resting quietly with no c/o discomfort. Respirations easy and regular. Vital signs stable. No overt distress. GIVENS,ZENA
--- NOTE | 2019-02-18 11:59 | NUR ---
AM GROUP/EXERCISE/GAME/MUSIC PT ENCOURAGED TO PARTICIPATE BUT CHOSE TO STAY IN ROOM RESTING AT THIS TIME. PT ATTEDED GROUP USP THROUGH AND RELAXED LISTENING TO MUSIC. PT WILL CONTINUE TO ATTEND FUTURE GROUP SESSIONS AND BE ENCOURAGED TO ATTEND AND PARTICIPATE TO BEST OF PT ABILITY.
--- NOTE | 2019-02-18 15:53 | NUR ---
PM GROUP/CRAFTS/MUSIC PT CHOSE NOT TO ATTEND OR PARTICIPATE IN GROUP BUT TO RELAX IN BED AT THIS TIME.
[2019-02-18 20:01] VITALS: BP 127/81
--- NOTE | 2019-02-19 01:00 | NUR ---
BSG CHECKED NURSING MEASURE WITH RESULT OF 262. PT ASYMPTOMATIC.
--- NOTE | 2019-02-19 02:04 | NUR ---
NO ADVERSE BEHAVIORS NOTED. PT ALERT TO SELF, CONFUSED. PT CALM, INTERACTED WITH STAFF AND PEERS IN DINING ROOM DURING SNACK. PT COMPLIANT WITH HS MEDICATIONS EXCEPT FOR HS DOSE OF INSULIN, UNABLE TO EDUCATE DUE TO COGNITION. PT DENIES SI/HI AND HALLUCINATIONS, NO NOTED RESPONDING TO INTERNAL STIMULI. NO PHYSICAL COMPLAINTS VOICED. PT MOBILIZES SELF IN WHEELCHAIR THROUGHOUT UNIT, ASSIST X1. PT SHOWERED THIS SHIFT, COOPERATIVE WITH HOC CARE. PT CURRENTLY LAYING DOWN WITH EYES CLOSED, RESPIRATIONS EASY AND REGULAR, NO SIGNS OR SYMPTOMS OF DISTRESS NOTED. PLAN IS TO CONTINUE TO MONITOR MOODS AND BEHAVIORS. PROVIDE 1:1 WITH THERAPEUTIC INTERVENTIONS. ENCOURAGE MEDICATION COMPLIANCE. MAINTAIN Q 15 MIN CHECKS.
--- NOTE | 2019-02-19 03:43 | NUR ---
24 HOUR CHART CHECK COMPLETED.
--- NOTE | 2019-02-19 05:46 | NUR ---
PATIENT OBSERVED ON Q 15 MIN CHECKS TO HAVE SLEPT THROUGHOUT THE NIGHT WITH NO AWAKENINGS OR SIGNS AND SYMPTOMS OF DISTRESS NOTED.
--- NOTE | 2019-02-19 08:07 | NUR ---
PT AWAKE, ALERT AND VERBAL. RESPS EASY AND EVEN ON ROOM AIR. EATING BREAKFAST WITH PEERS IN DINING ROOM AT THIS TIME. TOAN PMHNP-BC ON UNIT TO SEE PT AT THIS TIME, UPDATE GIVEN.
[2019-02-19 08:50] VITALS: BP 116/52
--- NOTE | 2019-02-19 10:25 | NUR ---
AND ON UNIT TO SEE PT AT THIS TIME. REVIEWED BLOOD SUGARS, MADE AWARE PT'S BSG AT HS LAST EVENING WAS 190, NO COVERAGE GIVEN, PT HAD LARGE SNACK, BSG CHECKED AT 0100 PER NURSING MEASURE WAS 262, AT 0600 WAS 136. PT ATE 90% OF BREAKFAST. BSG AT 1000 CHECKED PER NURSING MEASURE WAS 217. STATES TO GIVE LANTUS 40 UNITS THIS AM AND MONITOR THROUGHOUT THE DAY.
--- NOTE | 2019-02-19 12:40 | NUR ---
BSG 253. ATE 100% OF LUNCH. REVIEWED WITH /. OK TO GIVE INSULIN COVERAGE PER SLIDING SCALE. NO S/S DIABETIC IMBALANCE NOTED.
--- NOTE | 2019-02-19 18:31 | NUR ---
P- CONFUSED. SLIGHTLY DEMANDING AT TIMES. ISOLATIVE/WITHDRAWN. MOOD APPEARS DEPRESSED WITH FLAT AFFECT. SLOW PROCESSING NOTED. I- ORIENTATION, MOOD AND BEHAVIOR ASSESSED. ASSESSED PT FOR SI/HI, INTENT OR PLAN. ASSESSED PT FOR S/S HALLUCINATIONS, PARANOIA AND/OR DELUSIONS. MEDICATIONS ADMINISTERED PER PHYSICIAN'S ORDERS. ASSISTANCE WITH ADL CARE PROVIDED NEEDED. ENCOURAGED PT TO ATTEND AND PARTICIPATE IN WATT MILIEU GROUPS AND ACTIVITIES. R- PT IS ALERT AND ORIENTED TO PERSON ONLY. CONFUSED IN ALL OTHER AREAS THIS SHIFT. ST/LT MEMORY GAPS NOTED. RESPS EASY AND EVEN ON ROOM AIR. MOOD APPEARS DEPRESSED WITH FLAT AFFECT. SPEECH SLOW, COHERENT, ABLE TO ANSWER SIMPLE QUESTIONS, SLOW PROCESSING NOTED. PT DENIES SI/HI, INTENT OR PLAN. PT DENIES HALLUCINATIONS, NO RESPONSE TO INTERNAL STIMULI NOTED. NO PARANOIA OR DELUSIONS NOTED. PT SLIGHTLY DEMANDING AT TIMES. REMAINS ISOLATIVE/WITHDRAWN. REFUSED DINNER AND 1630 DOSE OF HUMALOG COVERAGE, BSG 175, NO S/S DIABETIC IMBALANCE NOTED. NO AGGRESSIVE BEHAVIORS DISPLAYED. P- PLAN TO CONTINUE CURRENT TREATMENT, CONTINUE TO MONITOR MOOD AND BEHAVIORS, PROVIDE APPROPRIATE REORIENTATION, REDIRECTION AND 1:1 NEEDED. CONTINUE TO ENCOURAGE MEDICATION COMPLIANCE WELL GROUP ATTENDANCE AND PARTICIPATION.
[2019-02-19 20:00] VITALS: BP 109/56
--- NOTE | 2019-02-19 22:01 | NUR ---
P-CONFUSION, DEMANDING I--CONVINCED CLIENT TO COME DOWN TO EAT. REFUSED ASSISTANCE TO GET UP. RIGHT ARM CONTRACTED. SPEECH REMAIN SLURRED. MEDICATION REVIEWED R--I CAN DO IT MYSELF. I DON'T NEED PUSHED P--CONTINUE EMOTIONAL SUPPORT. CONTINUE REORIENTATION. MONITOR FOR CHANGES IN MOOD/BEHAVIOR
--- NOTE | 2019-02-20 04:55 | NUR ---
24 HR chart check completed.
--- NOTE | 2019-02-20 07:20 | NUR ---
PHYSICAL THERAPY PT SITTING IN WHEELCHAIRIN ACTIVITY ROOM UPON ARRIVAL WITH BODY ALARM ON. PT AGREED TO ALL PHYSICAL THERAPY TREATMENT THIS VISIT. PT HAD NO C/O THIS A.M. BUSINESS SUPPORT ADMINISTRATOR TOOK PT TO HALLWAY WHERE PT PERFORMED STS FROM WC TO HANDRAIL WITH CGA. PT GAIT TRAINED 15FT WITH FWW WITH Astrid X2 AND VC'S FOLLOW WITH VC'S FOR POSTURE AND SAFETY WITH WALKER. PT HAD FORWARD FLEXED POSTURE AND FESTINATING GAIT. PT GAIT TRAINED 40FT X1 WITH HANDHELD ASSIST X2 WITH VC'S FOR POSTURE AND TO TAKE BIGGER STEPS. PT PERFORMED STS TO WC WITH VC'S FOR SAFETY PT DID NOT REACH BACK FOR WC. BUSINESS SUPPORT ADMINISTRATOR TOOK PT BACK TO ACTIVITY ROOM WHERE PT WAS AWAITING BREAKFAST. PT HAD BODY ALARM ON. SANTANA PRESENT FOR OBSERVATION. PT SEEN 1:1 FOR 11 MIN THIS AM. AYAN DALY BUSINESS SUPPORT ADMINISTRATOR
--- NOTE | 2019-02-20 07:45 | NUR ---
OT NOTE Pt was seen this A.M. 1:1 for 15 minute OT session with ELECTROCARDIOGRAPH TECHNICIAN and nursing staff present for observation only. Upon arrival pt was sitting upright in the w/c in the dining room. Pt identified by name and and had no complaints at this time. Pt was taken to the hallway where he completed multiple sit to stand transfers from chair level with Dm and use of of hand rail for UE support. Challenged pt's static standing tolerance needed for increased I in self care tasks and functional transfers. Pt was able to tolerate aprox 45-60 seconds at a time before sitting due to retrograde posture and LOB to the R that required modA to correct. Functional mobility was then completed to the bedroom with modA and use of w/w for UE support. Pt presented with poor walker safety, forward flexed posture, and R lateral lean that required modA to correct. Pt was left sitting upright in the w/c in the dining room with body alarm activated for safety and under U staff supervision. Continue with rec D/C plan to SNF. MAX Castillo/Nery
[2019-02-20 07:56] VITALS: BP 111/63
--- NOTE | 2019-02-20 08:15 | NUR ---
[facility] Plan [facility] and Department Of Mathematics Chair in attendance. Plan for discharge Wednesday. Pt. is LTC Resident of [facility] and Will return at discharge.
--- NOTE | 2019-02-20 09:15 | NUR ---
ON UNIT TO SEE PT AT THIS TIME.
--- NOTE | 2019-02-20 11:11 | NUR ---
UPDATE GIVEN PT PT'S ZENA VIA TELEPHONE.
--- NOTE | 2019-02-20 11:42 | NUR ---
AM GROUP/EXERCISE AND CURRENT EVENTS PT WAS PRESENT FOR MORNING GROUP THERAPY BUT REFUSES TO PARTICIPATE IN ANY ACTIVITY. PT SITS WITH HEAD DOWN AND MAKES NO ATTEMPT AT CONVERSATION OR SHOWS ANY INTEREST IN WHAT THE GROUP IS DOING.
--- NOTE | 2019-02-20 12:27 | NUR ---
Spoke with Amparo at [facility]. Notified of Plans to discharge Wednesday. Transportation arranged with Facility Van to transport with berry picker machine operator time 12:30 on Wednesday02/21/19.
--- NOTE | 2019-02-20 13:34 | NUR ---
SPEECH PATHOLOGY Clinical swallowing evaluation completed as per orders to assess safety with diet. Patient is ordered a regular diet and thin liquid. He was seen during lunchtime meal while sitting in activity room with peers. Patient presented in a forward posture with head down and remained this way throughout the meal. He provided limited response to questions asked. Staff reported that he has been eating well and with no observed difficulty. Patient consumed a variety of solid items during the meal. He displayed safe tolerance for food and liquid. Patient ate slowly and in normal bite/sip size amount. Recommend he remain on regular diet. No follow up treatment is warranted at this time. Results and betty. were shared with patient's nurse who verbalized understanding. Refer to report in [facility] [employer] for further information. Thank you for this referral. CHAPARRITA VIDAL MSCCC-SALES SUPPORT ASSISTANT
--- NOTE | 2019-02-20 13:45 | NUR ---
P- CONFUSED, MOOD APPEARS DEPRESSED WITH FLAT AFFECT, LIMITED INTERACTIONS WITH STAFF AND PEERS. I- ORIENTATION, MOOD AND BEHAVIOR ASSESSED. ASSESSED PT FOR SI/HI, INTENT OR PLAN. ASSESSED PT FOR S/S HALLUCINATIONS, PARANOIA AND/OR DELUSIONS. MEDICATIONS ADMINISTERED PER PHYSICIAN'S ORDERS. ASSISTANCE WITH ADL CARE PROVIDED NEEDED. ENCOURAGED PT TO ATTEND AND PARTICIPATE IN WATT MILIEU GROUPS AND ACTIVITIES. R- PT IS ALERT AND ORIENTED TO SELF ONLY, CONFUSION NOTED IN ALL OTHER AREAS. ST/LT MEMORY GAPS NOTED. RESPS EASY AND EVEN ON ROOM AIR. MOOD APPEARS DEPRESSED WITH FLAT AFFECT. SPEECH IS SOFT, SLOW, COHERENT, ABLE TO ANSWER QUESTIONS AND MAKE NEEDS KNOWN WITHOUT DIFFICULTY. SLOW PROCESSING NOTED. LIMITED INTERACTIONS WITH STAFF AND PEERS NOTED. PT DOES NOT OFTEN OFFER SPONTANEOUS VERBALIZATIONS. PT DENIES SI/HI, INTENT OR PLAN. PT DENIES HALLUCINATIONS, NO RESPONSE TO INTERNAL STIMULI NOTED. NO PARANOIA OR DELUSIONS NOTED. NO AGGRESSIVE BEHAVIORS DISPLAYED. PT IS MED COMPLIANT WITHOUT DIFFICULTY. NO DISTRESS NOTED. PT OFFERS NO COMPLAINTS. P- PLAN TO CONTINUE CURRENT TREATMENT, CONTINUE TO MONITOR MOOD AND BEHAVIORS, PROVIDE APPROPRIATE REORIENTATION, REDIRECTION AND 1:1 NEEDED. CONTINUE TO ENCOURAGE MEDICATION COMPLIANCE WELL GROUP ATTENDANCE AND PARTICIPATION.
--- NOTE | 2019-02-20 15:44 | NUR ---
PM GROUP/WREATHS PT WAS PRESENT FOR AFTERNOON GROUP THERAPY BUT REFUSES ANY ACTIVITY OFFERED. PT IS FOCUSED ON GOING TO BED.
[2019-02-20 19:37] VITALS: BP 102/50
--- NOTE | 2019-02-20 20:13 | NUR ---
COMPLETE SHOWER WITH MUCH ENCOURAGEMENT. HAIR WASHED. REFUSED TOOTHBRUSH. INCONTINENT OF MODERATE AMOUNT DARK MUSHY STOOL.
--- NOTE | 2019-02-20 20:45 | NUR ---
EVENING/MUSIC/GAMES/CRAFTS PT DID NOT ATTEND GROUP UNTIL THE LAST 20 MINUTES ALTHOUGH PT ENCOURAGED. PT ATTENDED TO HAVE SNACK AND DID NOT TALK OR INTERACT WITH STAFF OR PEERS OTHER THAN FOR HIS SNACK. PT WILL CONITNUE TO BE ENCOURAGED TO ATTEND AN DPARTICIPATE IN FUTRUE GROUP SESSIONS.
--- NOTE | 2019-02-20 21:07 | NUR ---
ATE SNACK BEFORE GOING BACK TO BED. SELECTIVLY MUTE AT THIS TIME. SHAKES HEAD YES AND NO. WILL DO WHAT IS ASKED OF HIM AFTER MUCH ENCOURAGEMENT EXCEPT BRUSH TEETH.
[2019-02-21 07:41] VITALS: BP 139/69
--- NOTE | 2019-02-21 08:15 | NUR ---
Treatment Plan meeting was held with Nurse Practitioner, RN, AT, PRESTONS and Nurse Liaison in attendance. Plan for discharge today. Pt. to return to [facility]. Transportation arranged with Van to transport.
--- NOTE | 2019-02-21 08:20 | NUR ---
WOODY COTTO ON UNIT TO SEE PATIENT
[2019-02-21] MEDS ORDERED: LANTUS SOL100 UNIT/1 SC (08:51)
[2019-02-21] MEDS ORDERED: Humalog SQ (08:51)
[2019-02-21] MEDS ORDERED: INVEGA3 MG PO ×2 (11:26→11:30)
[2019-02-21] MEDS ORDERED: REMERON15 M2 PO (11:30)
[2019-02-21] MEDS ORDERED: EXEL13.31 T (11:31)
[2019-02-21] MEDS ORDERED: MIRTAZAPINE15 M2 PO (11:36)
[2019-02-21] MEDS ORDERED: PALIPERIDONE ER3 MG PO (11:36)
[2019-02-21] MEDS ORDERED: EXELON13.3 MG/21 T (11:36)
--- NOTE | 2019-02-21 11:39 | NUR ---
AM GROUP PT WAS PRESENT FOR MORNING GROUP THERAPY BUT CHOSE NOT TO PARTICIPATE. PT IS READYING TO BE DISCHARGED FROM THE UNIT
--- NOTE | 2019-02-21 12:02 | NUR ---
Discharge Paperwork faxed to [facility] Attn: Amparo [phone].
--- NOTE | 2019-02-21 14:39 | NUR ---
Patient discharged today returning to [facility]. Follow-up will be with Dr Fagan, visiting psychiatrist. While at [facility], pt's behaviors improved. He was cooperative with staff and peers.
--- NOTE | 2019-02-21 16:13 | NUR ---
UNIT AIDE PRESENT AND PATIENT READY FOR DISCHARGE. PATIENT ASSISTED INTO WHEELCHAIR. ALL BELONGING AND DISCHARGE INSTRUCTIONS SENT WITH PATIENT OFF UNIT WITH STAFF TO FACILITY VAN. NURSE TO NURSE REPORT GIVEN TO DARRICK [facility].
--- NOTE | 2019-02-22 07:37 | NUR ---
PHYSICAL THERAPY CO-SIGN I approve of the Physical Therapy notes written above. Dulce Boone PT
--- NOTE | 2019-02-22 15:23 | NUR ---
OCCUPATIONAL THERAPY CO-SIGN I approve of the Occupational Therapy notes written above. JUAN SR OTR/Nery
[2019-02-23 10:08] LABS: NEURONTIN (GABAPENTIN) 19.6 ug/mL (4.0-16.0)
== END 2019-02-21 13:45 | disposition other institution (70) | DRG 885 ==
LOC: 3N 11:04
PROVIDERS: ADMIT Psychiatry & Neurology Psychiatry
PROC: 0HBRXZZ Excision of Toe Nail, External Approach (ICD-10-PCS; principal; 2019-02-15)
DX: F33.3 Major depressive disorder, recurrent, severe with psychotic symptoms (principal); G93.41 Metabolic encephalopathy; E44.0 Moderate protein-calorie malnutrition; I50.22 Chronic systolic (congestive) heart failure; E78.5 Hyperlipidemia, unspecified; N18.3 Chronic kidney disease, stage 3 (moderate); E11.40 Type 2 diabetes mellitus with diabetic neuropathy, unspecified; F03.90 Unspecified dementia, unspecified severity, without behavioral disturbance, psychotic disturbance, mood disturbance, and anxiety; E55.9 Vitamin D deficiency, unspecified; B35.1 Tinea unguium; F41.9 Anxiety disorder, unspecified; E11.22 Type 2 diabetes mellitus with diabetic chronic kidney disease; K21.9 Gastro-esophageal reflux disease without esophagitis; I25.10 Atherosclerotic heart disease of native coronary artery without angina pectoris; I25.2 Old myocardial infarction; Z86.73 Personal history of transient ischemic attack (TIA), and cerebral infarction without residual deficits; Z85.048 Personal history of other malignant neoplasm of rectum, rectosigmoid junction, and anus; Z87.01 Personal history of pneumonia (recurrent); Z82.49 Family history of ischemic heart disease and other diseases of the circulatory system; Z83.3 Family history of diabetes mellitus; Z80.8 Family history of malignant neoplasm of other organs or systems; Z88.5 Allergy status to narcotic agent; Z88.0 Allergy status to penicillin; Z79.02 Long term (current) use of antithrombotics/antiplatelets; Z79.899 Other long term (current) drug therapy; Z79.82 Long term (current) use of aspirin; Z68.28 Body mass index [BMI] 28.0-28.9, adult

== ENCOUNTER 2019-03-30 16:08 | Inpatient (IN) | payer MEDICARE, MEDICAID ==
[~2019-03-30] VITALS: Ht 157.5 cm; Wt 70.5 kg
[2019-03-30 16:00] VITALS: BP 151/69
[~2019-03-30 16:08] MED LIST changes: +EXEL13.31 T; +EXELON13.3 MG/21 T; +INVEGA3 MG PO; +MIRTAZAPINE15 M2 PO; +PALIPERIDONE ER3 MG PO; +REMERON15 M2 PO
[2019-03-30 16:15] VITALS: BP 151/69
--- NOTE | 2019-03-30 16:15 | NUR ---
A 58, admitted to , under the services of KELLY Evans DO with a diagnosis of HYPERKALEMIA. Chief complaint is HYPERKALEMIA. Patient [place] via [place]cher from [place]. Monitor applied. Initial assessment completed. Vital signs taken and recorded. KELLY EVANS DO notified of admission to the unit. Orders received. See assessment for past medical history, medications and allergies. Patient and/or family oriented to unit. [facility] visitation policy reviewed. Clothing/patient valuable form completed. SANTOS LITTLEJOHN
[2019-03-30] MEDS ORDERED: LANTUS SOL100 UNIT/1 SQ (17:33)
[2019-03-30] MEDS ORDERED: RIVASTIGMINE TAR6 M1 PO (17:34)
[2019-03-30] MEDS ORDERED: ASPIRIN81 M1 PO (17:43)
--- NOTE | 2019-03-30 17:54 | NUR ---
DR. MOORE NOTIFIED THAT MED REC IS UP TO DATE
[2019-03-30 20:00] VITALS: BP 133/69
[2019-03-30 22:21] LABS: CREATININE 1.92 mg/dL (0.70-1.30); POTASSIUM 5.3 mmol/L (3.5-5.1)
[2019-03-31] VITALS: BP 120/73
[2019-03-31 06:45] LABS: HEMATOCRIT 35.6 % (42.0-52.0); HEMOGLOBIN 11.3 g/dl (14.0-18.0); MEAN CELL VOLUME 88.1 fl (80.0-94.0); MEAN CORPUSCULAR HGB CONC 31.7 g/dl (33.0-37.0); MEAN PLATELET VOLUME 9.4 fl (9.6-12.3); PLATELET COUNT AUTOMATED 269 10*3/uL (130-400); RED BLOOD COUNT 4.04 10*6/uL (4.50-5.90); RED CELL DISTRI WIDTH 16.8 % (0-14.5); WHITE BLOOD COUNT 8.2 10*3/uL (4.8-10.8)
[2019-03-31 06:57] LABS: CREATININE 1.73 mg/dL (0.70-1.30); PHOSPHOROUS 3.4 mg/dL (2.5-4.9); POTASSIUM 5.1 mmol/L (3.5-5.1)
[2019-03-31 07:04] LABS: BASOPHILS 1 % (0-1); PLATELET SUFFICIENCY NORMAL (NORMAL); TOTAL CELLS COUNTED 100 #CELLS
[2019-03-31 08:00] VITALS: BP 102/60
--- NOTE | 2019-03-31 11:27 | NUR ---
Patient updated clinicals faxed to [facility] for review. Patient is termite control servicer care and ok to return when medically stable
[2019-03-31 12:00] VITALS: BP 112/61
--- NOTE | 2019-03-31 14:18 | NUR ---
SPEECH THERAPY Orders received for bedside swallowing evaluation due to concerns of choking while swallowing pills. Patient is familiar to this department, as he was previously seen for swallowing treatment. MBS dated 12/28/18 showed functional oropharyngeal swallow mechanism with no penetration or aspiration observed. Recent bedside swallowing evaluation dated 02/14/2019 revealed functional oropharyngal skills, however patient observed holding liquids in his mouth for a few seconds prior to swallowing. Upon arrival, patient laying in bed with meal tray at bedside. Patient able to answer personally relevent questions, however some confusion was observed as patient had to self-correct his responses. Patient's brother was additionally present at bedside. Patient reports occassional coughing on liquids. Patient's brother denies ever observing difficulty while swallowing. Oral mech exam revealed lingual, labial, and buccal skills that are WFL in terms of strength, ROM, and coordination, however patient was not able to perform volitional cough or throat clear. As clinicain was preparing patient's tray, patient suddently began experiencing emesis. He reported that he was not feeling well, and did not wish to eat. Patient's brother stated that patient had reported earlier that he was feeling sick. Notified patient's nurse of patient's emesis, and that bedside swallowing evaluation was not able to be complete. Will attempt swallowing evaluation at later time/date when appropriate. Thank you for your consultation. Vannesa Mckinney MA [facility]-BLAST FURNACE SUPERVISOR
[2019-03-31 16:00] VITALS: BP 141/74
[2019-03-31 20:00] VITALS: BP 145/69
--- NOTE | 2019-03-31 20:09 | NUR ---
24 HR chart check completed.
--- NOTE | 2019-03-31 21:20 | NUR ---
BLOOD SUGAR 61. PATIENT STATED HE WAS HUNGRY. SHOWED PATIENT HE HAD A TRAY ON SIDE TABLE. PATIENT ATE TURKEY SANDWICH , PEACHES AND PUDDING ON TRAY.
[2019-04-01] VITALS: BP 128/53
--- NOTE | 2019-04-01 03:20 | NUR ---
ZOFRAN GIVEN FOR C/O NAUSEA AND VOMITING
[2019-04-01 06:50] LABS: CREATININE 1.49 mg/dL (0.70-1.30); POTASSIUM 4.4 mmol/L (3.5-5.1)
[2019-04-01 08:00] VITALS: BP 110/60
[2019-04-01 12:00] VITALS: BP 153/82
[2019-04-01 16:00] VITALS: BP 134/64
[2019-04-01 20:00] VITALS: BP 118/48
--- NOTE | 2019-04-01 22:00 | NUR ---
PATIENT OFFERED APPLESAUCE FOR MEDICATIONS AND DECLINED STATING HE WANTS TO TAKE THEM WITH WATER. ENCOURAGED NOT TO TAKE ALL AT ONCE BUT PATIENT STUCK THEM ALL IN HIS MOUTH AND THEN CHEWED A BIT, HAD A SIP OF WATER AND BEGAN COUGHING.ENCOURAGED TO TUCK HIS CHIN WHILE SWALLOWING IN THE FUTURE.
[2019-04-02] VITALS: BP 142/69
--- NOTE | 2019-04-02 06:25 | NUR ---
DR FRAZIER NOTIFIED OF PT'S HR
[2019-04-02 07:30] LABS: HEMOGLOBIN 11.4 g/dl (14.0-18.0); MEAN CELL VOLUME 86.7 fl (80.0-94.0); MEAN CORPUSCULAR HGB 27.5 pg (27.0-31.0); MEAN CORPUSCULAR HGB CONC 31.7 g/dl (33.0-37.0); MEAN PLATELET VOLUME 9.4 fl (9.6-12.3); PLATELET COUNT AUTOMATED 233 10*3/uL (130-400); RED BLOOD COUNT 4.15 10*6/uL (4.50-5.90); RED CELL DISTRI WIDTH 16.6 % (0-14.5); WHITE BLOOD COUNT 7.9 10*3/uL (4.8-10.8)
[2019-04-02 07:50] LABS: CREATININE 1.52 mg/dL (0.70-1.30); POTASSIUM 4.5 mmol/L (3.5-5.1)
[2019-04-02 08:00] VITALS: BP 120/48
[2019-04-02 08:11] LABS: BASOPHILS 1 % (0-1); PLATELET SUFFICIENCY NORMAL (NORMAL); TOTAL CELLS COUNTED 100 #CELLS
[2019-04-02 12:00] VITALS: BP 125/53
[2019-04-02 16:00] VITALS: BP 122/53; BP 125/53
[2019-04-02 20:00] VITALS: BP 110/53
[2019-04-03] VITALS: BP 119/59
--- NOTE | 2019-04-03 02:55 | NUR ---
PATIENT ASLEEP, NO DISTRESS NOTED. CALL LIGHT WITHIN REACH
--- NOTE | 2019-04-03 05:27 | NUR ---
24 HR chart check completed.
--- NOTE | 2019-04-03 06:04 | NUR ---
NOTIFIED DR. FRAZIER OF PATIENT REFUSING LAB WORK AND REFUSING TO HAVE HIS BLOOD SUGAR DONE. STATED WILL HAVE DAYLIGHT ATTEMPT TO GET BLOOD
[2019-04-03 08:00] VITALS: BP 128/56
--- NOTE | 2019-04-03 08:00 | NUR ---
24 HR chart check completed. Patient resting quietly with no c/o discomfort. Respirations easy and regular. Vital signs stable. No overt distress. NI LOU
[2019-04-03 08:07] LABS: BASO # 0.1 10*3/uL (0.0-0.1); BASO % 1.1 % (0.0-1.0); EOS # 1.6 10*3/uL (0.0-0.4); EOS % 19.2 % (1.0-4.0); HEMATOCRIT 34.4 % (42.0-52.0); HEMOGLOBIN 10.8 g/dl (14.0-18.0); LYMPH % 11.9 % (27.0-41.0); MEAN CELL VOLUME 87.3 fl (80.0-94.0); MEAN CORPUSCULAR HGB 27.4 pg (27.0-31.0); MEAN CORPUSCULAR HGB CONC 31.4 g/dl (33.0-37.0); MEAN PLATELET VOLUME 9.2 fl (9.6-12.3); MONO # 0.8 10*3/uL (0.1-1.0); MONO % 8.9 % (3.0-9.0); NEUT # 4.9 10*3/uL (2.3-7.9); NEUT % 58.5 % (47.0-73.0); PLATELET COUNT AUTOMATED 261 10*3/uL (130-400); RED BLOOD COUNT 3.94 10*6/uL (4.50-5.90); RED CELL DISTRI WIDTH 16.5 % (0-14.5); WHITE BLOOD COUNT 8.4 10*3/uL (4.8-10.8)
[2019-04-03 08:31] LABS: ALBUMIN 2.8 gm/dl (3.1-4.5); CREATININE 1.67 mg/dL (0.70-1.30); POTASSIUM 4.4 mmol/L (3.5-5.1); TOTAL PROTEIN 6.5 gm/dL (6.4-8.2)
--- NOTE | 2019-04-03 09:00 | NUR ---
case management visits with patient, he is a extermination inspector resident of [facility] and will return when medically stable, tool planner and case management will follow
--- NOTE | 2019-04-03 09:40 | NUR ---
Occupational therapy orders received and chart reviewed. Patient was supine in bed with HOB elevated, bed alarm on. Patient was lethargic, provided tactile and verbal stimulation and was unable to arouse patient. Nursing was notified of patient's status. Will follow up with patient. Thank you. Marylu Perez OTR/L
--- NOTE | 2019-04-03 09:40 | NUR ---
PHYSICAL THERAPY Attempted to see pt at the bedside for evaluation sleeping unable to arouse with verbal/tactile stimulation. Pt not answering questions or following any commands. Unable to assess pt at this time, spoke with Nurse Delmis will try again later in the AM or afternoon. Dulce Boone PT
--- NOTE | 2019-04-03 10:56 | NUR ---
SPEECH PATHOLOGY Attempted clinical swallowing evaluation at bedside this am. Patient's breakfast tray was present. He was asleep in bed and did not arouse to any stim. Aides were present and reported that just changed and turned him and he did not awaken during that encounter. Will attempt assessment at a later time. CHAPARRITA VIDAL MSCCC-RETAIL EVENT AND SALES ASSISTANT
[2019-04-03 12:00] VITALS: BP 133/66
--- NOTE | 2019-04-03 12:20 | NUR ---
DR FRAZIER AWARE THAT PT WILL NOT AROUSE TO TAKE MEDICATIONS AND THAT HE SLEPT THROUGH GLUCOSE CHECK AND LOVENOX ADMINISTRATION. VSS.
[2019-04-03 12:45] LABS: ARTERIAL BLOOD GAS PH 7.398 (7.35-7.45)
--- NOTE | 2019-04-03 13:55 | NUR ---
CONSULT CALLED TO [facility].
--- NOTE | 2019-04-03 14:50 | NUR ---
Occupational therapy orders received and OT evalaution completed in full on floor four. Patient precautions include fall risk, ww use, poor historian, and bed/chair alarm. Per OT eval, OT recommends patient return to [facility] with skilled OT/PT. Patient would benefit from continued OT treatment to maximize safety and independence for ADLs, mobility, and transfers[place], [address]. Thank you for the referral. Marylu Perez, OTR/L
--- NOTE | 2019-04-03 15:13 | NUR ---
PHYSICAL THERAPY Eval completed pt moderate level of complexity 26616 recomend return to facility f/u therapy if/as appropriate. PT to work on transfers,amb, strengthening. Dulce Boone PT
--- NOTE | 2019-04-03 15:50 | NUR ---
SPEECH PATHOLOGY Patient was seen for clinical swallowing eval this pm. He was sitting upright in bed feeding himself lunch. He was alert but confused and with inappropriate responses to questions asked. Patient was consuming soft food, puree and thin liquid and had already eaten a good portion of his meal before clinician arrived. Lengthy mastication was noted with soft food and patient was noted to often continue to chew when there was nothing in his mouth. Patient stated that he felt like the solid food was stuck in his throat. This appeared to be phlegm as he did cough some up then had no further complaints. He consumed puree and thin liquid with no overt difficulty. He would not allow clinician to assist him in any way during the meal. Recommend he remain on present diet at this time. Follow up therapy will be conducted to ensure safe tolerance through education and safety strategies. Refer to report in [employer] for further information. Thank you for this referral. CHAPARRITA VIDAL MSCCC-RN PRIVATE DUTY
[2019-04-03 16:00] VITALS: BP 135/64
[2019-04-03 20:00] VITALS: BP 133/66
--- NOTE | 2019-04-03 20:57 | NUR ---
IN TO ASSESS PATIENT. PATIENT SITTING UP IN CHAIR. ALERT TO PERSON AND PLACE. NOT VERY COOPERATIVE. FLAT. STATES HE FEELS CRAPPY. WHEN ASKED WHY HE STATED BECAUSE HE HAS TO SIT UP IN THE CHAIR. EXPLAINED TO PATIENT THAT WE CAN GET HIM INTO THE BED SO HE CAN LAY DOWN. PATIENT REFUSED THAT. TOLD HIM I HAVE HIS NIGHT TIME MEDICATIONS SOON. PATIENT JUST STARTED REPEATING NO. PATIENT STATED HE WILL TAKE THEM LATER. CALL LIGHT WITHIN REACH, BODY ALARM INTACT. WILL MONITOR
--- NOTE | 2019-04-03 22:15 | NUR ---
PATIENT AT THIS TIME STOOD UP AND SET CHAIR ALARM OFF. PATIENT BEGAN WALKING WHEN DORA SALGADO WALKING IN AND WITNESSED THE PATIENT BEGAN FALLING AGAINST THE OTHER PATIENTS BED. SHE STATED THAT HE HIT HIS RIGHT SIDE IN THE RIB AREA AND BEGAN TO SLIDE DOWN. PATIENT DID NOT LOSE CONSIOUSNESS, HE DID NOT HIT HIS HEAD. FALL WAS WITNESSED. DR. GIVENS AND SUPERVISOR POWDERED METAL NOTIFIED. VITAL SIGNS STABLE AND PATIENT STATES THAT HE IS IN NO PAIN AND DID NOT HURT HIMSELF.
[2019-04-03 22:16] VITALS: BP 139/61
[2019-04-04] VITALS: BP 130/58
--- NOTE | 2019-04-04 00:16 | NUR ---
PATIENT SLEEPING, NO DISTRESS NOTED. BED ALARM INTACT, CALL LIGHT WITHIN REACH
--- NOTE | 2019-04-04 02:24 | NUR ---
PATIENT SLEEPING, NO DISTRESS NOTED. BED ALARM INTACT. CALL LIGHT WITHIN REACH, WILL LINNIOR
--- NOTE | 2019-04-04 03:07 | NUR ---
24 HR chart check completed.
--- NOTE | 2019-04-04 06:01 | NUR ---
PATIENT WOKE UP FOR BLOOD SUGAR. REFUSED TO SPEAK TO THIS NURSE. EXPLAINED TO HIM WE WERE GOING TO GET HIS BLOOD SUGAR. HE CONTINUED TO STARE AT THIS NURSE
[2019-04-04 06:49] LABS: BASO # 0.1 10*3/uL (0.0-0.1); BASO % 0.8 % (0.0-1.0); EOS # 1.4 10*3/uL (0.0-0.4); EOS % 14.8 % (1.0-4.0); HEMATOCRIT 35.7 % (42.0-52.0); HEMOGLOBIN 11.2 g/dl (14.0-18.0); LYMPH # 0.9 10*3/uL (1.3-4.4); LYMPH % 9.4 % (27.0-41.0); MEAN CELL VOLUME 86.4 fl (80.0-94.0); MEAN CORPUSCULAR HGB 27.1 pg (27.0-31.0); MEAN CORPUSCULAR HGB CONC 31.4 g/dl (33.0-37.0); MEAN PLATELET VOLUME 9.7 fl (9.6-12.3); MONO # 0.7 10*3/uL (0.1-1.0); NEUT # 6.4 10*3/uL (2.3-7.9); NEUT % 67.5 % (47.0-73.0); PLATELET COUNT AUTOMATED 274 10*3/uL (130-400); RED BLOOD COUNT 4.13 10*6/uL (4.50-5.90); RED CELL DISTRI WIDTH 16.4 % (0-14.5); WHITE BLOOD COUNT 9.5 10*3/uL (4.8-10.8)
[2019-04-04 07:05] LABS: CREATININE 1.6 mg/dL (0.70-1.30); POTASSIUM 4.2 mmol/L (3.5-5.1)
[2019-04-04 08:00] VITALS: BP 120/57
--- NOTE | 2019-04-04 08:00 | NUR ---
OT NOTE Pt was seen this A.M. 1:1 for 15 minute OT session. Upon arrival pt was supine in bed. Pt identified by name and and had no complaints at this time. Pt transferred supine to sit EOB with modA. Sit to stand completed from bed level with Dm and use of w/w for UE support. Functional mobility was then completed into the bathroom with CGA and use of w/w. Pt had multiple bouts of unsteady gait and LOB that occured throughout requiring Dm to correct due to poor safety awareness and poor walker safety. Pt was educated on safety concerns and continued to present with poor carry over throughout session. Pt transferred on to standard commode with modA due to poor safety, poor command follow, being impulsive, and retrograde posture. Clothing management completed with modA due to being very unsteady and having multiple LOB when standing without UE support. Pt then transferred off standard commode with Dm. Functional mobility was then completed back to the recliner with CGA and use of w/w. There he was left sitting upright with call light in hand, tray table in place, and body alarm activated for safety. Continue with rec D/C plan to return to [facility] with PT/OT. MAX Castillo/Nery
--- NOTE | 2019-04-04 08:00 | NUR ---
Updated clinicals faxed to [facility] for review. 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
--- NOTE | 2019-04-04 08:00 | NUR ---
PHYSICAL THERAPY Patient seen this am 1:1 for therapy visit and was resting supine in bed upon therapist arrival. Patient identified by name / and presented with bouts of increased confusion. Patient needed multiple v/c's to complete all therapy task this session, requiring a little extra time to process simple commands. Patient transfers supine to sit EOB with MOD A x 1, then sit to stand MIN A. Patient ambulates with use of wh walker, MIN A, 15 'x 1 to bathroom, then additional 25'x 1, demonstrating very slow, unsteady gait pattern. Patient also demonstrated POOR walker safety / navigation by picking up walker during turns with LOB x 1. Patient returned to bedside chair and remained with call light, tray table, telephone and body alarm for safety. Will continue per POC as tolerated, total treatment time 15 minutes. Alexis Fatima, OUTBOARD MOTOR TESTER
--- NOTE | 2019-04-04 09:37 | NUR ---
SPEECH PATHOLOGY Patient was seen for treatment this am during breakfast meal. Patient was sitting upright in bedside chair. He was alert and with limited verbalization to questions asked. He fed himself, consuming a variety of solid foods and thin liquids. He displayed safe tolerance of the meal. Occasional cues were needed to clear oral cavity before taking next bite. He displayed no cough or wet vocal quality. Patient had no c/o feeling like foods were sticking. Recommend he remain on present diet. Continue therapy short term. CHAPARRITA VIDAL MSCCC-VACUUM TESTER CANS
--- NOTE | 2019-04-04 11:47 | NUR ---
CCDIS Discharge instructions reviewed with patient/family. Patient receptive and verbalizes understanding. Follow-up care arranged. Written instructions given to patient/family. RC CHAIDEZ
--- NOTE | 2019-04-05 07:54 | NUR ---
PHYSICAL THERAPY CO-SIGN I approve of the Physical Therapy notes written above. Dulce Boone PT
--- NOTE | 2019-04-05 08:01 | NUR ---
OCCUPATIONAL THERAPY CO-SIGN I approve of the Occupational Therapy notes written above. ANDRY VILLASEÑOR, OTR/L
[2019-04-18] MEDS ORDERED: DEBROX15 ML OT (06:16)
== END 2019-04-04 11:47 | disposition home health service (06) | DRG 683 ==
LOC: 4E 16:08
PROVIDERS: Emergency Medicine; Internal Medicine; Student in an Organized Health Care Education/Training Program; ADMIT Internal Medicine
DX: N17.0 Acute kidney failure with tubular necrosis (principal); I50.22 Chronic systolic (congestive) heart failure; E44.0 Moderate protein-calorie malnutrition; F33.3 Major depressive disorder, recurrent, severe with psychotic symptoms; E87.5 Hyperkalemia; D64.9 Anemia, unspecified; E11.22 Type 2 diabetes mellitus with diabetic chronic kidney disease; E87.8 Other disorders of electrolyte and fluid balance, not elsewhere classified; E66.3 Overweight; E11.65 Type 2 diabetes mellitus with hyperglycemia; E11.42 Type 2 diabetes mellitus with diabetic polyneuropathy; F41.9 Anxiety disorder, unspecified; E55.9 Vitamin D deficiency, unspecified; N18.3 Chronic kidney disease, stage 3 (moderate); F01.50 Vascular dementia, unspecified severity, without behavioral disturbance, psychotic disturbance, mood disturbance, and anxiety; K21.9 Gastro-esophageal reflux disease without esophagitis; I25.10 Atherosclerotic heart disease of native coronary artery without angina pectoris; R13.10 Dysphagia, unspecified; E78.5 Hyperlipidemia, unspecified; Z68.27 Body mass index [BMI] 27.0-27.9, adult; Z86.73 Personal history of transient ischemic attack (TIA), and cerebral infarction without residual deficits; I25.2 Old myocardial infarction; Z82.49 Family history of ischemic heart disease and other diseases of the circulatory system; Z83.3 Family history of diabetes mellitus; Z80.9 Family history of malignant neoplasm, unspecified; Z88.5 Allergy status to narcotic agent; Z88.0 Allergy status to penicillin; Z79.82 Long term (current) use of aspirin; Z79.4 Long term (current) use of insulin; Z79.899 Other long term (current) drug therapy

== ENCOUNTER 2019-04-04 11:03 | Inpatient (IN) | payer MEDICARE, MEDICAID ==
[~2019-04-04] VITALS: Ht 157.5 cm; Wt 70.5 kg
[~2019-04-04 11:03] MED LIST changes: +RIVASTIGMINE TAR6 M1 PO
--- NOTE | 2019-04-04 11:32 | NUR ---
JAKY LIANG a 58 year old M admitted via wheel chair from the ADMITTING as a voluntary admission. Arrived on unit at 1132. ALLERGIES: CODEINE AND PENICILLIN. Vital signs are: [id number] 147/76. The client signed the following forms with stated understanding: Authorization For The Release of Medical Information, Clothing List, Consent to Voluntary Admission and Hospitalization, Consent and Release Forms/Receipt of Rights, Acknowledgement of Advance Directive Information, Behavioral Health Consent Form, and Informed Consent of Medications. Admitted under the services of Dr. KATIE RABAGODHARA. A search was conducted and hazardous articles were removed. Client was oriented to the unit. SANTOS KIRKPATRICK
[2019-04-04 11:41] VITALS: BP 147/76
[2019-04-04 12:00] VITALS: BP 147/76
--- NOTE | 2019-04-04 12:03 | NUR ---
SPOKE WITH DR DELGADO AT [phone] RE: PT ADMISSION AND MEDICAL MANAGEMENT CONSULT NEEDED, PER DR REBOLLEDO CONSULT UNDER DR. PEMBERTON. NO FURTHER ORDERS AT THIS TIME.
--- NOTE | 2019-04-04 12:07 | NUR ---
Notified Amparo Chief Accountant at [facility] of Admission to [facility].
--- NOTE | 2019-04-04 15:28 | NUR ---
Shift chart check completed.
--- NOTE | 2019-04-04 15:45 | NUR ---
P: FLAT AFFECT, WITHDRAWN AND ISOLATIVE. I: ONE ON ONE, REDIRECTION NEEDED R: EFFECTIVE. PATIENT IS ALERT TO PERSON AND SITUATION;ABLE TO VOICE NEEDS. MOOD IS WITHDRAWN, ISOLATIVE WITH FLAT AFFECT. DENIES ANY HALLUCINATIONS, DELUSIONS, HI/SI OR PAIN. SLOW TO THOUGHT PROCESS. MEMORY DEFICITS NOTED.1 PERSON ASSIST WITH ACTIVITIES OF DAILY LIVING, INCONTINENT OF BLADDER. SET UP FOR MEALS, INTAKES ARE GOOD WITH ADEQUATE FLUIDS. ATTENDED AFTERNOON GROUP SESSION. Q 15 MINUTE SAFETY CHECKS MAINTAINED. P: CONTINUE TO MONITOR MOOD, PROVIDE ONE ON ONE FOR EMOTIONAL SUPPORT AND REDIRECTION NEEDED.
--- NOTE | 2019-04-04 15:50 | NUR ---
PM GROUP PT HAD JUST BEEN ORIENTED TO THE UNIT AND DID NOT ATTEND AFTERNOON GROUP THERAPY.
[2019-04-04 20:04] VITALS: BP 153/76
--- NOTE | 2019-04-04 20:35 | NUR ---
EVENING GROUP/LEISURE SKILLS PT IN ATTENDANCE [facility]. PT QUIET TO SELF BUT WATCHING MOVIE. PT ASSESSMENT NOT COMPLETED AT THIS TIME, BUT WILL ATTEMPT TOMORROW.PT WILL CONTINUE TO BE ENCOURAGED TO ATTEND AN DPARTICIPATE IN FUTURE GROUP SESSIOSN TO BEST OF PT ABILITY.
--- NOTE | 2019-04-05 00:07 | NUR ---
P-CONFUSION I-REORIENT AND PRESENT REALITY NEEDED. PROVIDE 1:1 WITH THERAPEUTIC INTERVENTIONS. ENCOURAGE MEDICATION COMPLIANCE AND EDUCATE. MONITOR SLEEP. R-PT ALERT TO SELF, CONFUSED IN ALL OTHER AREAS. PT UNABLE TO STATE WHERE HE IS AT AND THINKS THE YEAR 1921. PT SLOW TO PROCESS WITH ST/LT MEMORY DEFICITS NOTED, REQUIRES FREQUENT REORIENTATION DURING INTERACTIONS. PT MEDICATION COMPLIANT WITHOUT DIFFICULTY, UNABLE TO EDUCATE DUE TO COGNITION. PT DENIES SI/HI, HALLUCINATIONS, OR PAIN. PT SHOWERED WITH ASSISTANCE, COMPLIANT WITH HOC WHEN PROMPTED, ASSIST X1. PT MOBILIZES SELF USING A WHEELCHAIR, ABLE TO MAKE NEEDS KNOWN, INCONTINENT OF BOWEL AND BLADDER. PT RESTING QUIETLY AT THIS TIME, NO SIGNS OR SYMPTOMS OF DISTRESS NOTED. P-CONTINUE TO MONITOR MOOD AND BEHAVIORS. PRESENT REALITY AND REORIENT NEEDED. ENCOURAGE MEDICATION COMPLIANCE AND EDUCATE. MAINTAIN Q 15 MIN CHECKS.
--- NOTE | 2019-04-05 03:00 | NUR ---
24 HOUR CHART CHECK COMPLETED.
--- NOTE | 2019-04-05 03:15 | NUR ---
BSG CHECKED A NURSING MEASURE AT THIS TIME WITH A RESULT OF 74. PT ASYMPTOMATIC. ORANGE JUICE PROVIDED.
--- NOTE | 2019-04-05 05:50 | NUR ---
PATIENT OBSERVED ON Q 15 MIN CHECKS TO HAVE SLEPT APPROX 7 HOURS WITH NO AWAKENINGS OR SIGNS AND SYMPTOMS OF DISTRESS NOTED.
[2019-04-05 07:02] LABS: HEMOGLOBIN 11.6 g/dl (14.0-18.0); MEAN CELL VOLUME 85.6 fl (80.0-94.0); MEAN CORPUSCULAR HGB 26.9 pg (27.0-31.0); MEAN CORPUSCULAR HGB CONC 31.4 g/dl (33.0-37.0); MEAN PLATELET VOLUME 9.6 fl (9.6-12.3); PLATELET COUNT AUTOMATED 305 10*3/uL (130-400); RED BLOOD COUNT 4.32 10*6/uL (4.50-5.90); RED CELL DISTRI WIDTH 16.5 % (0-14.5); WHITE BLOOD COUNT 10.1 10*3/uL (4.8-10.8)
[2019-04-05 07:30] LABS: ALBUMIN 2.9 gm/dl (3.1-4.5); CREATININE 1.61 mg/dL (0.70-1.30); POTASSIUM 4.7 mmol/L (3.5-5.1); TOTAL PROTEIN 6.9 gm/dL (6.4-8.2)
[2019-04-05 07:40] LABS: THYROID STIM HORMONE (HS) 4.16 uIU/ml (0.358-4.75)
[2019-04-05 07:46] LABS: BASOPHILS 2 % (0-1); TOTAL CELLS COUNTED 100 #CELLS
[2019-04-05 07:47] LABS: PLATELET SUFFICIENCY NORMAL (NORMAL)
--- NOTE | 2019-04-05 08:00 | NUR ---
Treatment Plan meeting was held with Dr. Fagan, RN, AT, [facility] and Ict Support Technicians. Plan for discharge Next week with return to [facility]. 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
[2019-04-05 08:04] VITALS: BP 128/67
[2019-04-05 09:03] LABS: VITAMIN D, 25-HYDROXY 28.1 ng/mL (30-100)
--- NOTE | 2019-04-05 09:42 | NUR ---
DR. FRAZIER NOTIFIED OF BLOOD SUGARS FROM YESTERDAY AND TODAY. VERBAL ORDER TO HOLD TODAY'S LANTUS.
--- NOTE | 2019-04-05 11:47 | NUR ---
AM GROUP/EXERCISE AND BRAIN GAMES PT WAS PRESENT DURING MORNING GROUP THERAPY SITTING IN A WHEELCHAIR AT THE TABLE WITH PEERS. PT CHOSE NOT TO PARTICIPATE IN ANY ACTIVITY. PT SLEPT MOST OF THE TIME. PT IS SHORT WHEN ASKED QUESTIONS AND BECOMES AGITATED IF HE IS ASKED TO REPEAT HIMSELF.
--- NOTE | 2019-04-05 13:58 | NUR ---
Clinical Updates faxed to [facility] attn:
--- NOTE | 2019-04-05 15:43 | NUR ---
PM GROUP/WATERCOLORS AND MUSIC PT WAS PRESENT FOR AFTERNOON GROUP THERAPY SLEEPING WITH HIS HEAD ON THE TABLE. PT WAS ROUSED AND ASKED IF HE WOULD LIKE TO PARTICIPATE AND PT REFUSED. PT KEPT HEAD ON TABLE THE ENTIRE GROUP.
--- NOTE | 2019-04-05 18:22 | NUR ---
PATIENT IS ALERT TO PERSON AND SITUATION WITH CONFUSION; ABLE TO VOICE NEEDS. MOOD IS DEPRESSED WITH FLAT AFFECT. DENIES ANY HALLUCINATIONS, DELUSIONS, HI/SI OR PAIN. MEDICATION COMPLAINT. Q 15 MINUTE SAFETY CHECKS MAINTAINED. 1 PERSON ASSIST WITH ACTIVITIES OF DAILY LIVING, INCONTINENT OF BLADDER, CONTINENT OF BOWEL. UP IN WHEELCHAIR ON UNIT. INTERACTIVE WITH STAFF AND ATTENDED GROUP SESSION. CONTINUE TO MONITOR FOR MOOD AND INCREASED CONFUSION. PROVIDE ONE ON ONE AND REDIRECTION NEEDED.
[2019-04-05 19:44] VITALS: BP 130/68
--- NOTE | 2019-04-05 20:16 | NUR ---
24 HR chart check completed.
--- NOTE | 2019-04-05 21:58 | NUR ---
P-CONFUSION I-PROVIDE 1:1, ASSESS ORIENTATION, ADMINISTER MEDS, MONITOR SLEEP R-DEPRESSED MOOD WITH FLAT AFFECT. ALERT TO PERSON & PLACE. LIMITED VERBALLY. COMPLIANT TAKING HS PO MEDICATIONS, REFUSED INSULIN COVERAGE SEVERAL TIMES. STATED, " I DON'T WANT POKED ANY MORE". ATE SNACK. INCONTINENT OF URINE. REQUIRED 1 STAFF ASSIST WHILE GETTING IN BED. P-CONTINUE TO MONITOR & PROVIDE PHYSICAL ASSISTANCE & EMOTIONAL SUPPORT NEEDED.
--- NOTE | 2019-04-06 05:36 | NUR ---
PT HAS SLEPT PAST 2199
--- NOTE | 2019-04-06 06:32 | NUR ---
AM BEDSIDE GLUCOSE 165
[2019-04-06 07:57] VITALS: BP 138/71
--- NOTE | 2019-04-06 08:00 | NUR ---
Treatment Plan meeting was held with Dr. Fagan, RN, AT and Wafer Fabrication Technician. Plan for discharge next week. Pt. is LTC Resident at [facility] and Will return at discharge.
--- NOTE | 2019-04-06 08:00 | NUR ---
Patient in dining room resting quietly with no c/o discomfort. Respirations easy and regular. Vital signs stable. No overt distress. GUS LAWTON
--- NOTE | 2019-04-06 11:49 | NUR ---
AM GROUP PT WAS PRESENT FOR MORNING GROUP THERAPY AND SAT AT A TABLE WITH HIS HEAD DOWN SNORING LOUDLY. PT ONLY WOKE FOR THE MEDICAL DOCTOR AND WENT BACK TO SLEEP. PT IS UNWILLING TO PARTICIPATE IN ANY ACTIVITY OFFERED.
--- NOTE | 2019-04-06 12:02 | NUR ---
PT IS FLAT, WITHDRAWN. PT SLEEPING T/O SHIFT. PT NOTED TO BE LEANING FORWARD, DROOLING ON SELF, ALSO NOTED TO HAVE SMALL AMOUNT OF SPIT AND FOOD ON SHIRT. PT REFUSED 1300 MEDICATION. ATTEMPTED TO VERBALLY ENGAGE WITH PT. REDIRECTED, EDUCATED. PT STATES "I DON'T WANT IT" AND DOES NOT INTERACT ANY FURTHER. PT CONTINUES TO SLEEP INTERMITTENTLY. DOES NOT MAKE EYE CONTACT. WILL CONTINUE TO ENCOURAGE MEDICATION COMPLIANCE. WILL CONTINUE TO ENCOURAGE PT TO CONSUME MEALS. WILL CONTINUE TO REDIRECT AND ENCOURAGE PT TO INTERACT WITH STAFF AND PEERS. Q15 MIN MONITORING PER POLICY FOR SAFETY.
[2019-04-06 12:27] VITALS: BP 129/87
--- NOTE | 2019-04-06 15:41 | NUR ---
PM GROUP PT DID NOT ATTEND AFTERNOON GROUP THERAPY. PT WAS IN BED NAPPING
[2019-04-06 19:56] VITALS: BP 140/70
--- NOTE | 2019-04-06 23:45 | NUR ---
P-CONFUSION, WITHDRAWN, ISOLATIVE I-REDIRECTION WITH 1:1 THERAPEUTIC INTERVENTIONS AND PRESENT REALTIY. EDUCATE AND ENCOURAGE MEDICATION COMPLIANCE R-PATIENT MEDICATION COMPLIANT WITH HS MEDICATIONS. PATIENT REFUSED INSULIN COVERAGE AT . PATIENT PROVIDED NOURISHMENT AT AND PROVIDED FLUIDS. PATIENT ISOLATIVE IN DINING AREA AND WITH LIMITED INTERACTION WITH PEERS IN DINING AREA. PATIENT WITH FLAT AFFECT. PATIENT AMBULATING ON UNIT WITH ASSISTANCE X 1 AND WITH STEADY GAIT. PATIENT WITH NO HALLUCINATIONS OR DELUSIONS. PATIENT WITH NO SUICIDAL OR HOMICIDAL IDEATIONS. P-CONTINUE TO ENCOURAGE MEDICATION COMPLAINCE, CONTINUE TO PRESENT REALITY, ENCOURAGE GROUP THERAPY WHILE AWAKE
--- NOTE | 2019-04-07 05:43 | NUR ---
PATIENT SLEPT 8 HOURS OF INTERRUPTED SLEEP THROUGHOUT SHIFT. Q 15 MINUTE CHECKS MAINTAINED. 24 HR chart check completed.
[2019-04-07 07:40] VITALS: BP 129/81
--- NOTE | 2019-04-07 09:40 | NUR ---
DR. FRAZIER MADE AWARE OF PT'S HR 60 AND BSG 95. MADE AWARE OF AM SCHEDULED ADMINISTRATION OF LANTUS AND METOPROLOL. DR. FRAZIER STATES TO DISCONTINUE LANTUS AND HOLD METOPROLOL X1. WILL CONTINUE TO MONITOR PT'S CONDITION.
--- NOTE | 2019-04-07 09:50 | NUR ---
Spoke with Amparo at [facility]. Notified of discharge Next week per conversation with Dr. Fagan Yesterday. Clinical Updates faxed to Facility.
--- NOTE | 2019-04-07 11:45 | NUR ---
AM GROUP/BEADING PT WAS PRESENT SEATED IN A WHEELCHAIR AT THE TABLE WITH HIS HEAD DOWN SNORING LOUDLY. PT DID NOT WAKE DURING GROUP
--- NOTE | 2019-04-07 14:34 | NUR ---
PHYSICAL THERAPY TREATMENT TIME: 01:25 PM - 1:40 PM 15 MINUTES TOTAL. Patient presented to therapy in sititng in the his wheelchair in activity room. Patient gives informed consent for treatment. Patient was identified by name and on wristband. Patient performed sit to stand out of wheelchair with MIN A X 1 with verbal cues for pushing off the armrests with hands and locking his knees into extension upon standing. Patient's knees were slightly flexed upon standing and patient required verbal cues for locking knees into extension to prevent knee buckle. Patient also verbal cued to remain within ANNA of Wh Walker and keep elbows slightly flexed, instead of locked into elbow extension. Patient ambulated 25' x 1 with MIN A X 1 - CGA WITH ALL OF THE ABOVE MENTIONED VERBAL CUES REQUIRED CONTINUALLY DURING GAIT. Patient sit to stand again out of wheelchair with MIN A X 1 and verbal cues to push off wheelchair armrests with hands. Patient tends to attempt standing with both hands on Wh Walker until verbal cued in correct technique. Patient ambulated the 2 nd time about 30' x 1. Patient was left in wheelchair with chair alarm attached and other staff and patient's present in activity room. Patient was 1:1 with this AGRICULTURAL EDUCATION PROFESSOR for 15 minutes total. MAX Carter PRESENT WITNESS TO THIS TREATMENT. RIVAS ALDANA AGRICULTURAL EDUCATION PROFESSOR
--- NOTE | 2019-04-07 14:48 | NUR ---
PT AFFECT IS FLAT, WITHDRAWN. PT SLEEPING T/O SHIFT. ATTEMPTED TO VERBALLY ENGAGE WITH PT. REDIRECTED. PT STARES BLANKLY AT THIS NURSE AND DOES NOT INTERACT. PT CONTINUES TO SLEEP INTERMITTENTLY. DOES NOT MAKE EYE CONTACT. PT DOES FOLLOW VERBAL COMMANDS. WILL CONTINUE TO ENCOURAGE MEDICATION COMPLIANCE. WILL CONTINUE TO ENCOURAGE PT TO CONSUME MEALS. WILL CONTINUE TO REDIRECT AND ENCOURAGE PT TO INTERACT WITH STAFF AND PEERS. Q15 MIN MONITORING PER POLICY FOR SAFETY.
--- NOTE | 2019-04-07 15:47 | NUR ---
PM GROUP/MOVIE PT WAS PRESENT FOR AFTERNOON GROUP THERAPY AND KEPT HIS HEAD ON THE TABLE AND SLEPT THE ENTIRE TIME. PT REFUSES TO ACKNOWLEDGE WHEN SPOKEN TO BUT OBVIOUSLY IS AWARE.
[2019-04-07 19:09] VITALS: BP 126/79
--- NOTE | 2019-04-08 00:06 | NUR ---
P- CONFUSION, FLAT AFFECT, WITHDRAWN, MINIMAL INTERACTIONS WITH STAFF AND PEERS. I- ORIENTATION, MOOD AND BEHAVIOR ASSESSED. ASSESSED PT FOR SI/HI, INTENT OR PLAN. ASSESSED PT FOR S/S HALLUCINATIONS, PARANOIA AND/OR DELUSIONS. HS MEDICATIONS GIVEN ORDERED. ASSISTANCE WITH ADL CARE PROVIDED NEEDED. FALL RISK PRECAUTIONS MAINTAINED. REST ENCOURAGED. R- PT IS ALERT WITH CONFUSION. MEMORY GAPS NOTED. MOOD APPEARS DEPRESSED WITH FLAT AFFECT. MINIMAL INTERACTIONS WITH STAFF AND PEERS. SPEECH IS SOFT AND COHERENT WITH SLOW PROCESSING NOTED. PT ANSWERS QUESTIONS WITH SHORT 1-2 WORD RESPONSES ONLY. PT DENIES SI/HI, INTENT OR PLAN. PT DENIES HALLUCINATIONS, NO RESPONSE TO INTERNAL STIMULI NOTED. NO PARANOIA OR DELUSIONS NOTED. PT MED COMPLIANT AT HS WITHOUT DIFFICULTY. PT NOTED ON Q15 MIN SAFETY CHECKS TO BE SLEEPING PAST APPROXIMATELY 8PM, EYES CLOSED, RESPS EASY AND EVEN ON ROOM AIR. NO DISTRESS NOTED. P- PLAN TO CONTINUE CURRENT TX, CONTINUE TO MONITOR MOOD AND BEHAVIORS, PROVIDE APPROPRIATE REORIENTATION, REDIRECTION AND 1:1 NEEDED.
[2019-04-08 07:24] VITALS: BP 129/52
--- NOTE | 2019-04-08 08:46 | NUR ---
DR SANTANA ON UNIT TO ASSESS PT, UPDATE PROVIDED.
--- NOTE | 2019-04-08 08:47 | NUR ---
P: PT SELECTIVELY MUTE AT TIMES, REFUSED BREAKFAST. PT RESISTIVE WITH AM PO MEDS I: PROVIDE EMOTIONAL SUPPORT AND 1:1 FOR PT TO VOICE FEELINGS, ENCOURAGE MED COMPLIANCE, ENCOURAGE GROUP PARTICIPATION AND SOCIALIZATION, ENCOURAGE PO INTAKE. R: UNABLE TO ASSESS PT ORIENTATION D/T PT REFUSING TO ANSWER QUESTIONS OR ACKNOWLEDGE STAFF. PT MED COMPLIANT WITH MINIMAL ENCOURAGEMENT. PT CONTINUES TO REFUSE BREAKFAST. PT UP TO A WHEELCHAIR, REQUIRES 1 STAFF ASSIST FOR CARE AND TRANSFERS. PT CONTINENT OF BOWEL AND BLADDER, EPISODES OF INCONTINENCE NOTED, CARE PROVIDED NEEDED. NO HALLUCINATIONS OR DELUSIONS NOTED. NO SUICIDAL THOUGHTS OR BEHAVIORS NOTED AT THIS TIME. P: MONITOR PT BEHAVIORS ON Q15 MIN SAFETY CHECKS, ENCOURAGE MED COMPLIANCE, ENCOURAGE PO INTAKE, PROVIDE EMOTIONAL SUPPORT AND 1:1 FOR PT TO VOICE FEELINGS, ENCOURAGE GROUP PARTICIPATION AND SOCIALIZATION.
--- NOTE | 2019-04-08 12:00 | NUR ---
AM GROUP/EXERCISES/MUSIC/LEISURE PT CHOSE NOT TO ATTEND BUT TO REMAIN IN ROOM AT THIS TIME. PT WILL CONTINUE TO BE ENCOURAGED TO ATTEND AND PARTICIPATE IN FUTURE GROUP SESSIOSN TO BEST OF PT ABILITY.
--- NOTE | 2019-04-08 16:00 | NUR ---
PM GROUP/MOVIE/LEISURE PT IN ATTENDNACE BUT CHOSE NOT TO PARTICIPATE DUE TO SLEEPING.
[2019-04-08 20:00] VITALS: BP 146/66
--- NOTE | 2019-04-08 22:25 | NUR ---
P-CONFUSION, WITHDRAWN, ISOLATIVE I-REDIRECTION WITH 1:1 THERAPEUTIC INTERVENTIONS AND PRESENT REALTIY. EDUCATE AND ENCOURAGE MEDICATION COMPLIANCE R-PATIENT MEDICATION COMPLIANT WITH MEDICATIONS. PATIENT REFUSED INSULIN COVERAGE AT . PATIENT PROVIDED NOURISHMENT AT AND PROVIDED FLUIDS. PATIENT ISOLATIVE IN DINING AREA AND WITH LIMITED INTERACTION WITH PEERS IN DINING AREA. PATIENT WITH FLAT AFFECT. PATIENT SLOW TO PROCESS AT TIMES. PATIENT WITH NO HALLUCINATIONS OR DELUSIONS. PATIENT WITH NO SUICIDAL OR HOMICIDAL IDEATIONS. P-CONTINUE TO ENCOURAGE MEDICATION COMPLAINCE, CONTINUE TO PRESENT REALITY, ENCOURAGE GROUP THERAPY WHILE AWAKE
--- NOTE | 2019-04-09 06:15 | NUR ---
PATIENT SLEPT 7 HOURS OF UNTERRUPTED SLEEP THROUGHOUT SHIFT. Q 15 MINUTE CHECKS MAINTAINED. 24 HR chart check completed.
[2019-04-09 07:53] VITALS: BP 123/67
--- NOTE | 2019-04-09 10:07 | NUR ---
DR SANTANA ON UNIT TO ASSESS PT, UPDATE PROVIDED.
--- NOTE | 2019-04-09 12:58 | NUR ---
AM GROUP/EXERCISE/MUSIC/COLOR BY NUMBER PT IN ATTENDNACE BUT SLEPT ENTIRE TIME IN WHEELCHAIR. PT DID NOT WAKE ONCE. PT WILL CONTINUE TO ATTEND AN DBE NECOURAGED TO PARTICIPATE TO BEST OF PT ABILITY.
--- NOTE | 2019-04-09 17:04 | NUR ---
SPOKE WITH DR RODRIGUEZ AT [phone] RE: PT VITALS OF [id number]/60-100%RA. ADVISED THAT PT EXHIBITS NO S/S OF DISTRESS. PT WILL OPEN EYES WHEN WE WANTS TO. STAFF TOOK PT TO BED TO REST AND HE STOOD WITHOUT ISSUE. WILL CONTINUE TO MONITOR.
--- NOTE | 2019-04-09 17:37 | NUR ---
PT ALERT TO PERSON AND PLACE ONLY, CONFUSION AND SHORT TERM MEMORY DEFICITS NOTED PER PT BASELINE, STAFF RE-ORIENTED TO TIME AND SITUATOIN. PT MED COMPLIANT WITH MINIMAL DIFFICULTY. PT CALM. PT REMAINS ISOLATIVE TO SELF, NO INTERACTION NOTED WITH PEERS, LITTLE INTERACTION NOTED WITH STAFF. PT CONTINUES TO REFUSE TO RESPOND TO STAFF AT TIMES AND ACKNOWLEDGE THAT HE IS BEIG SPOKEN TO. STAFF ENCOURAGED GROUP PARTICIPATION AND SOCIALIZATION. NO HALLUCINATIONS OR DELUSIONS NOTED. NO SUICIDAL THOUGHTS OR BEHAVIORS NOTED. PT UP TO A WHEELCHAIR, REQUIRES 1-2 STAFF ASSIST FOR TRANSFERS AND CARE. PT INCONTINENT OF BOWEL AND BLADDER, EPISODES OF INCONTINENCE NOTED, CARE PROVIDED NEEDED. PLAN IS TO MONITOR PT BEHAVIORS ON Q15 MIN SAFETY CHECKS, ENCOURAGE MED COMPLIANCE, ENCOURAGE GROUP PARTICIPATION AND SOCIALIZATION, PROVIDE EMOTIONAL SUPPORT AND 1:1 FOR PT TO VOICE FEELINGS.
[2019-04-09 20:12] VITALS: BP 138/60
--- NOTE | 2019-04-09 21:47 | NUR ---
Patient alert to person and place only with confusion noted. Memory deficits noted. Patient is isolative to his room at times. This nurse was able to get him to come to the diningroom for snacks since he refused supper and is a diabetic. Patient remained isolative in diningroom but did eat his snack. No s/s of any responding to internal stimuli noted at this time. Patient compliant with HS medications with minimal difficulty. Attempted to provide 1:1 for emotional support but patient refused. Redirected/reoriented when appropriate. Plan to continue to encourage medication compliance. Also continue to provide emotional support and redirect/reorient when needed/appropriate. Q 15 minute safety checks continued and maintained. See [facility] flowsheet for further documentation.
--- NOTE | 2019-04-10 00:16 | NUR ---
24 HR chart check completed.
--- NOTE | 2019-04-10 05:38 | NUR ---
Patient slept approx. 8 hours throughout shift. Q 15 minute safety checks continued and maintained.
[2019-04-10 07:56] VITALS: BP 119/67
--- NOTE | 2019-04-10 08:00 | NUR ---
Treatment plan meeting was held with Dr. Fagan, NIGEL Wright, RN, AT, [employer]KER[employer]S and Antenna Rigger. Plan for discharge Today. Pt. will return to [facility]. Mental Health Follow Up and Primary Care Provided at Facility. Call Placed to [facility] to notify of discharge today. Transportation arranged with Facility Van to transport with pick up attendant time between 6:30 and 7:00 p.m.
--- NOTE | 2019-04-10 08:00 | NUR ---
Patient resting quietly with no c/o discomfort. Respirations easy and regular. Vital signs stable. No overt distress. MANUEL SANTA
--- NOTE | 2019-04-10 08:30 | NUR ---
AND RANDELL PMHNP-BC ON UNIT TO SEE PT AT THIS TIME, UPDATE GIVEN.
--- NOTE | 2019-04-10 09:12 | NUR ---
NOTIFIED OF DISCHARGE FOR TODAY. ALSO MADE AWARE OF BP 119/67 HR 48 THIS AM. REVIEWED AM MEDICATIONS. STATES TO HOLD LASIX AND TOPROL XL. OK TO GIVE LISINOPRIL THIS AM.
[2019-04-10] MEDS ORDERED: DIVALPROEX SOD500 MG PO (10:18)
[2019-04-10] MEDS ORDERED: MEMANTINE HCL10 MG PO (10:18)
[2019-04-10] MEDS ORDERED: BRIN20TA PO (10:18)
--- NOTE | 2019-04-10 11:42 | NUR ---
P- CONFUSED, SELECTIVELY MUTE, REFUSED BREAKFAST, TOOK AM MEDS WITHOUT DIFFICULTY, NO AGGRESSIVE BEHAVIORS. I- ORIENTATION, MOOD AND BEHAVIORS ASSESSED. ASSESSED PT FOR SI/HI, INTENT OR PLAN. ASSESSED PT FOR S/S HALLUCINATIONS, PARANOIA AND/OR DELUSIONS. MEDICATIONS ADMINISTERED PER PHYSICIAN'S ORDERS. ASSISTANCE WITH ADL CARE PROVIDED NEEDED. ENCOURAGED PT TO ATTEND AND PARTICIPATE IN WATT MILIEU GROUPS AND ACTIVITIES. R- PT IS ALERT AND ORIENTED TO SELF ONLY. PT REMAINS SELECTIVELY MUTE PER PT BASELINE. MOOD APPEARS STABLE, AFFECT FLAT. PT DENIES SI/HI, INTENT OR PLAN. PT DENIES HALLUCINATIONS, NO RESPONSE TO INTERNAL STIMULI NOTED. NO PARANOIA OR DELUSIONS NOTED. MED COMPLIANT THIS AM WITHOUT DIFFICULTY. NO DISTRESS NOTED. PT IS CALM AND COOPERATIVE WITH CARE. P- PLAN TO CONTINUE CURRENT TX, CONTINUE TO MONITOR MOOD AND BEHAVIORS, PROVIDE APPROPRIATE REORIENTATION, REDIRECTION AND 1:1 NEEDED. ASSIST PT IN PREPARING FOR HOSPITAL DISCHARGE THIS DATE.
--- NOTE | 2019-04-10 12:05 | NUR ---
Discharge Paperwork Faxed to [facility].
--- NOTE | 2019-04-10 13:27 | NUR ---
Patient discharging today returning to [facility] under LTC. Follow-up will be with Dr Grullon, visiting psychiatrist. While at [facility], pt had a tendency to isolate or when in activity room with other patients, keep to himself. Pt did interact minimally with staff. According to staff at [facility] where pt resides, this is pt's normal behavior.
--- NOTE | 2019-04-10 15:41 | NUR ---
Nurse to nurse report given to Beni at [facility].
--- NOTE | 2019-04-10 15:48 | NUR ---
PT DISCHARGED AT THIS TIME TO [facility] VIA [facility] TRANSPORTATION. PT ESCORTED IN W/C WITH [facility] MAILROOM SUPERVISOR, [facility] MENTAL HEALTH WORKER AND WEAVER DOBBY LOOM. DISCHARGE PACKETS WERE PROVIDED FOR PT AND FACILITY. ALL PERSONAL BELONGINGS WERE SENT WITH THE PT. PT LEFT THE UNIT IN STABLE CONDITION AT 1548.
[2019-04-18] MEDS ORDERED: DEBROX15 ML OT (06:16)
== END 2019-04-10 15:48 | disposition other institution (70) | DRG 885 ==
LOC: 3N 11:03
PROVIDERS: ADMIT Psychiatry & Neurology Psychiatry
DX: F33.3 Major depressive disorder, recurrent, severe with psychotic symptoms (principal); I50.22 Chronic systolic (congestive) heart failure; E44.0 Moderate protein-calorie malnutrition; N18.3 Chronic kidney disease, stage 3 (moderate); E66.3 Overweight; I25.10 Atherosclerotic heart disease of native coronary artery without angina pectoris; K21.9 Gastro-esophageal reflux disease without esophagitis; E11.69 Type 2 diabetes mellitus with other specified complication; E78.5 Hyperlipidemia, unspecified; E11.22 Type 2 diabetes mellitus with diabetic chronic kidney disease; E11.42 Type 2 diabetes mellitus with diabetic polyneuropathy; F41.9 Anxiety disorder, unspecified; E55.9 Vitamin D deficiency, unspecified; D64.9 Anemia, unspecified; F06.1 Catatonic disorder due to known physiological condition; Z68.27 Body mass index [BMI] 27.0-27.9, adult; Z85.048 Personal history of other malignant neoplasm of rectum, rectosigmoid junction, and anus; Z88.5 Allergy status to narcotic agent; Z88.0 Allergy status to penicillin; Z79.4 Long term (current) use of insulin; Z82.49 Family history of ischemic heart disease and other diseases of the circulatory system; I25.2 Old myocardial infarction; Z83.3 Family history of diabetes mellitus; Z80.8 Family history of malignant neoplasm of other organs or systems; Z79.899 Other long term (current) drug therapy; Z86.73 Personal history of transient ischemic attack (TIA), and cerebral infarction without residual deficits

== ENCOUNTER 2019-04-21 03:59 | Inpatient (IN) | payer MEDICARE, MEDICAID ==
[2019-04-21] VITALS (9 sets, daily range): BP systolic 82–114; BP diastolic 44–66
[~2019-04-21] VITALS: Ht 167.6 cm; Wt 73.9 kg
[~2019-04-21 03:59] MED LIST changes: +BRIN20TA PO; +DEBROX15 ML OT; +DIVALPROEX SOD500 MG PO; +MEMANTINE HCL10 MG PO
[2019-04-21 04:29] LABS: HEMATOCRIT 44.4 % (42.0-52.0); HEMOGLOBIN 13.4 g/dl (14.0-18.0); MEAN CELL VOLUME 89.9 fl (80.0-94.0); MEAN CORPUSCULAR HGB 27.1 pg (27.0-31.0); MEAN CORPUSCULAR HGB CONC 30.2 g/dl (33.0-37.0); PLATELET COUNT AUTOMATED 153 10*3/uL (130-400); RED BLOOD COUNT 4.94 10*6/uL (4.50-5.90); RED CELL DISTRI WIDTH 16.6 % (0-14.5); WHITE BLOOD COUNT 8.4 10*3/uL (4.8-10.8)
[2019-04-21 04:39] LABS: ACT PARTIAL THROMBO TIME 27.9 SECONDS (20.0-32.1); INTERNATIONAL NORM RATIO 1.1 (2.0-3.5)
[2019-04-21 04:47] LABS: ALBUMIN 2.9 gm/dl (3.1-4.5); CREATININE 4.24 mg/dL (0.70-1.30); POTASSIUM 4.3 mmol/L (3.5-5.1); TOTAL PROTEIN 7.4 gm/dL (6.4-8.2); TROPONIN I 0.031 ng/ml (<0.045)
[2019-04-21 04:50] LABS: BASOPHILS 1 % (0-1); PLATELET SUFFICIENCY NORMAL (NORMAL); TOTAL CELLS COUNTED 100 #CELLS
[2019-04-21 05:33] LABS: VALPROIC ACID (DEPAKENE) 65.6 ug/ml (50-100)
[2019-04-21] MEDS ORDERED: DULCOLAX10 M1 R (06:10)
[2019-04-21] MEDS ORDERED: ZOFRAN4 MG PO (06:33)
[2019-04-21 07:26] LABS: ABG BASE EXCESS -2.1 mmol/L (-2.0-2.0); ARTERIAL BLOOD GAS PH 7.376 (7.35-7.45)
[2019-04-21 07:27] LABS: FREE T4 0.93 ng/dl (0.76-1.46); PHOSPHOROUS 4.3 mg/dL (2.5-4.9)
[2019-04-21 07:32] LABS: THYROID STIM HORMONE (HS) 1.71 uIU/ml (0.358-4.75)
[2019-04-21 08:43] LABS: VITAMIN D, 25-HYDROXY 31.2 ng/mL (30-100)
[2019-04-21 09:26] LABS: BILIRUBIN NEGATIVE (NEGATIVE); BLOOD 2+ (NEGATIVE); CLARITY SL CLOUDY (CLEAR); COLOR YELLOW (YELLOW); GLUCOSE NEGATIVE (NEGATIVE); KETONE NEGATIVE (NEGATIVE); NITRITE NEGATIVE (NEGATIVE); UROBILINOGEN 0.2 E.U./dl (0.2-1.0)
[2019-04-21 09:27] LABS: LEUKO ESTERASE NEGATIVE (NEGATIVE)
[2019-04-21 09:48] LABS: BACTERIA 2+; MUCOUS 3+; RBC 16-20 rbc/hpf (0-2)
[2019-04-21 13:32] LABS: CREATININE 3.81 mg/dL (0.70-1.30); POTASSIUM 4.5 mmol/L (3.5-5.1)
[2019-04-22] VITALS: BP 142/64
[2019-04-22 04:00] VITALS: BP 123/55
[2019-04-22 07:45] LABS: HEMATOCRIT 40.7 % (42.0-52.0); HEMOGLOBIN 12.3 g/dl (14.0-18.0); MEAN CELL VOLUME 90.4 fl (80.0-94.0); MEAN CORPUSCULAR HGB 27.3 pg (27.0-31.0); MEAN CORPUSCULAR HGB CONC 30.2 g/dl (33.0-37.0); MEAN PLATELET VOLUME 10.2 fl (9.6-12.3); PLATELET COUNT AUTOMATED 121 10*3/uL (130-400); RED CELL DISTRI WIDTH 16.2 % (0-14.5); WHITE BLOOD COUNT 9.9 10*3/uL (4.8-10.8)
[2019-04-22 08:00] VITALS: BP 119/45
[2019-04-22 08:03] LABS: ALBUMIN 2.6 gm/dl (3.1-4.5); CREATININE 2.58 mg/dL (0.70-1.30); PHOSPHOROUS 3.4 mg/dL (2.5-4.9); POTASSIUM 4.3 mmol/L (3.5-5.1); TOTAL PROTEIN 6.6 gm/dL (6.4-8.2)
[2019-04-22 08:08] LABS: OVALOCYTES MODERATE; PLATELET SUFFICIENCY LOW (NORMAL); SCHISTOCYTES FEW; TOTAL CELLS COUNTED 100 #CELLS
[2019-04-22 12:00] VITALS: BP 109/42
[2019-04-22 16:00] VITALS: BP 129/53
[2019-04-22 20:00] VITALS: BP 116/53
[2019-04-23] VITALS (24 sets, daily range): BP systolic 78–129; BP diastolic 29–62
[2019-04-23 08:49] LABS: BASO # 0.1 10*3/uL (0.0-0.1); BASO % 0.7 % (0.0-1.0); EOS # 0.6 10*3/uL (0.0-0.4); EOS % 7.1 % (1.0-4.0); HEMATOCRIT 31.8 % (42.0-52.0); LYMPH # 0.9 10*3/uL (1.3-4.4); LYMPH % 10.7 % (27.0-41.0); MEAN CELL VOLUME 88.3 fl (80.0-94.0); MEAN CORPUSCULAR HGB 27.8 pg (27.0-31.0); MEAN CORPUSCULAR HGB CONC 31.4 g/dl (33.0-37.0); MEAN PLATELET VOLUME 10.8 fl (9.6-12.3); MONO # 1.5 10*3/uL (0.1-1.0); MONO % 17.1 % (3.0-9.0); NEUT # 5.6 10*3/uL (2.3-7.9); NEUT % 63.6 % (47.0-73.0); PLATELET COUNT AUTOMATED 126 10*3/uL (130-400); RED CELL DISTRI WIDTH 15.7 % (0-14.5); WHITE BLOOD COUNT 8.8 10*3/uL (4.8-10.8)
[2019-04-23 09:18] LABS: ALBUMIN 2.2 gm/dl (3.1-4.5); CREATININE 2.33 mg/dL (0.70-1.30); PHOSPHOROUS 2.8 mg/dL (2.5-4.9); POTASSIUM 3.7 mmol/L (3.5-5.1); TOTAL PROTEIN 5.9 gm/dL (6.4-8.2)
[2019-04-24] VITALS (8 sets, daily range): BP systolic 114–128; BP diastolic 44–60
[2019-04-24 04:55] LABS: CREATININE 1.87 mg/dL (0.70-1.30); PHOSPHOROUS 2.4 mg/dL (2.5-4.9); POTASSIUM 4.2 mmol/L (3.5-5.1)
[2019-04-24 06:09] LABS: BASO % 0.5 % (0.0-1.0); EOS # 0.3 10*3/uL (0.0-0.4); EOS % 5.5 % (1.0-4.0); HEMATOCRIT 29.2 % (42.0-52.0); LYMPH # 0.7 10*3/uL (1.3-4.4); LYMPH % 11.4 % (27.0-41.0); MEAN CELL VOLUME 87.2 fl (80.0-94.0); MEAN CORPUSCULAR HGB 26.9 pg (27.0-31.0); MEAN CORPUSCULAR HGB CONC 30.8 g/dl (33.0-37.0); MONO # 0.9 10*3/uL (0.1-1.0); MONO % 14.4 % (3.0-9.0); NEUT # 4.1 10*3/uL (2.3-7.9); NEUT % 67.4 % (47.0-73.0); PLATELET COUNT AUTOMATED 118 10*3/uL (130-400); RED BLOOD COUNT 3.35 10*6/uL (4.50-5.90); RED CELL DISTRI WIDTH 15.9 % (0-14.5)
[2019-04-25] VITALS: BP 110/71
[2019-04-25 04:00] VITALS: BP 120/65
[2019-04-25 05:26] LABS: CREATININE 1.61 mg/dL (0.70-1.30); PHOSPHOROUS 2.7 mg/dL (2.5-4.9); POTASSIUM 3.9 mmol/L (3.5-5.1)
[2019-04-25 06:03] LABS: BASO % 0.3 % (0.0-1.0); EOS # 0.4 10*3/uL (0.0-0.4); EOS % 6.3 % (1.0-4.0); HEMATOCRIT 28.8 % (42.0-52.0); HEMOGLOBIN 8.8 g/dl (14.0-18.0); LYMPH # 0.6 10*3/uL (1.3-4.4); MEAN CELL VOLUME 87.8 fl (80.0-94.0); MEAN CORPUSCULAR HGB 26.8 pg (27.0-31.0); MEAN CORPUSCULAR HGB CONC 30.6 g/dl (33.0-37.0); MONO # 0.9 10*3/uL (0.1-1.0); MONO % 14.4 % (3.0-9.0); NEUT # 4.2 10*3/uL (2.3-7.9); NEUT % 68.2 % (47.0-73.0); PLATELET COUNT AUTOMATED 129 10*3/uL (130-400); RED BLOOD COUNT 3.28 10*6/uL (4.50-5.90); RED CELL DISTRI WIDTH 15.9 % (0-14.5); WHITE BLOOD COUNT 6.2 10*3/uL (4.8-10.8)
[2019-04-25 08:00] VITALS: BP 111/66
[2019-04-25 12:00] VITALS: BP 133/61
[2019-04-25 16:00] VITALS: BP 141/58
[2019-04-25 20:00] VITALS: BP 155/83
[2019-04-26] VITALS: BP 152/68
[2019-04-26 07:08] LABS: BASO % 0.7 % (0.0-1.0); EOS # 0.3 10*3/uL (0.0-0.4); EOS % 5.2 % (1.0-4.0); HEMATOCRIT 31.9 % (42.0-52.0); HEMOGLOBIN 9.7 g/dl (14.0-18.0); LYMPH # 0.5 10*3/uL (1.3-4.4); LYMPH % 8.8 % (27.0-41.0); MEAN CELL VOLUME 89.4 fl (80.0-94.0); MEAN CORPUSCULAR HGB 27.2 pg (27.0-31.0); MEAN CORPUSCULAR HGB CONC 30.4 g/dl (33.0-37.0); MEAN PLATELET VOLUME 10.9 fl (9.6-12.3); MONO # 0.9 10*3/uL (0.1-1.0); MONO % 15.2 % (3.0-9.0); NEUT # 4.1 10*3/uL (2.3-7.9); NEUT % 69.4 % (47.0-73.0); PLATELET COUNT AUTOMATED 124 10*3/uL (130-400); RED BLOOD COUNT 3.57 10*6/uL (4.50-5.90); RED CELL DISTRI WIDTH 16.1 % (0-14.5); WHITE BLOOD COUNT 5.9 10*3/uL (4.8-10.8)
[2019-04-26 07:24] LABS: POTASSIUM 4.2 mmol/L (3.5-5.1)
[2019-04-26 07:30] LABS: CREATININE 1.51 mg/dL (0.70-1.30)
[2019-04-26 08:00] VITALS: BP 148/60
[2019-04-26 12:00] VITALS: BP 121/61
[2019-04-26 16:00] VITALS: BP 138/68
[2019-04-26] MEDS ORDERED: Humalog SQ (18:00)
[2019-04-26] MEDS ORDERED: DOXYCYCLINE100 M3 PO (18:00)
[2019-04-26] MEDS ORDERED: NEURONTIN100 MG PO (18:02)
[2019-04-26 20:00] VITALS: BP 149/64
[2019-04-27] VITALS: BP 141/64
[2019-04-27 07:06] LABS: BUN 29 mg/dl (7-24); CHLORIDE 113 mmol/L (98-107); POTASSIUM 3.9 mmol/L (3.5-5.1); SODIUM 143 mmol/L (136-145)
[2019-04-27 07:07] LABS: CREATININE 1.33 mg/dL (0.70-1.30)
[2019-04-27 08:00] VITALS: BP 140/60
[2019-04-27 12:00] VITALS: BP 123/61
[2019-04-27 16:00] VITALS: BP 132/66
[2019-04-27 20:00] VITALS: BP 109/48
[2019-04-28] VITALS (9 sets, daily range): BP systolic 114–132; BP diastolic 48–67
[2019-04-28 06:32] LABS: HEMATOCRIT 30.3 % (42.0-52.0); HEMOGLOBIN 9.5 g/dl (14.0-18.0); MEAN CELL VOLUME 88.3 fl (80.0-94.0); MEAN CORPUSCULAR HGB 27.7 pg (27.0-31.0); MEAN CORPUSCULAR HGB CONC 31.4 g/dl (33.0-37.0); MEAN PLATELET VOLUME 10.1 fl (9.6-12.3); PLATELET COUNT AUTOMATED 153 10*3/uL (130-400); RED BLOOD COUNT 3.43 10*6/uL (4.50-5.90); RED CELL DISTRI WIDTH 16.3 % (0-14.5); WHITE BLOOD COUNT 6.1 10*3/uL (4.8-10.8)
[2019-04-28 06:51] LABS: BUN 30 mg/dl (7-24); CHLORIDE 113 mmol/L (98-107); CREATININE 1.44 mg/dL (0.70-1.30); POTASSIUM 4.2 mmol/L (3.5-5.1); SODIUM 142 mmol/L (136-145)
[2019-04-28 07:35] LABS: BURR CELLS MODERATE; PLATELET SUFFICIENCY NORMAL (NORMAL); SCHISTOCYTES FEW; TOTAL CELLS COUNTED 100 #CELLS
[2019-04-29] VITALS: BP 143/65
[2019-04-29 07:01] LABS: BUN 29 mg/dl (7-24); CHLORIDE 113 mmol/L (98-107); CREATININE 1.43 mg/dL (0.70-1.30); POTASSIUM 4.2 mmol/L (3.5-5.1); SODIUM 143 mmol/L (136-145)
[2019-04-29 08:00] VITALS: BP 141/91
[2019-04-29 12:00] VITALS: BP 133/65
[2019-04-29 16:00] VITALS: BP 128/67
[2019-04-29 20:00] VITALS: BP 123/53
[2019-04-30] VITALS: BP 125/57
[2019-04-30 06:39] LABS: CREATININE 1.55 mg/dL (0.70-1.30); POTASSIUM 4.2 mmol/L (3.5-5.1)
[2019-04-30 08:00] VITALS: BP 116/54
[2019-04-30 12:00] VITALS: BP 128/59
[2019-04-30 16:00] VITALS: BP 124/54
[2019-04-30 20:00] VITALS: BP 122/57
[2019-05-01] VITALS: BP 135/69
[2019-05-01 06:54] LABS: CREATININE 1.48 mg/dL (0.70-1.30); PHOSPHOROUS 3.1 mg/dL (2.5-4.9); POTASSIUM 4.4 mmol/L (3.5-5.1)
[2019-05-01 08:00] VITALS: BP 114/78
[2019-05-01 12:00] VITALS: BP 120/74
== END 2019-05-01 12:57 | disposition other institution (70) | DRG 177 ==
LOC: ED 03:59 → EDHOLD 05:18 → ICCU 05:18 → 4E 05:18 → ICCU 05:35 → 4E 04-25 14:08 → 5E 04-29 18:45
PROVIDERS: Emergency Medicine; Family Medicine; Internal Medicine; Internal Medicine Nephrology; Student in an Organized Health Care Education/Training Program; ADMIT Internal Medicine
PROC: 0DH63UZ Insertion of Feeding Device into Stomach, Percutaneous Approach (ICD-10-PCS; principal; 2019-04-26)
DX: J69.0 Pneumonitis due to inhalation of food and vomit (principal); N17.0 Acute kidney failure with tubular necrosis; J96.01 Acute respiratory failure with hypoxia; G93.41 Metabolic encephalopathy; E43 Unspecified severe protein-calorie malnutrition; E87.0 Hyperosmolality and hypernatremia; I50.22 Chronic systolic (congestive) heart failure; F33.3 Major depressive disorder, recurrent, severe with psychotic symptoms; G93.1 Anoxic brain damage, not elsewhere classified; N18.4 Chronic kidney disease, stage 4 (severe); J15.6 Pneumonia due to other Gram-negative bacteria; I95.89 Other hypotension; E86.1 Hypovolemia; D64.9 Anemia, unspecified; E87.8 Other disorders of electrolyte and fluid balance, not elsewhere classified; E83.41 Hypermagnesemia; Z68.21 Body mass index [BMI] 21.0-21.9, adult; E78.5 Hyperlipidemia, unspecified; E11.22 Type 2 diabetes mellitus with diabetic chronic kidney disease; E11.42 Type 2 diabetes mellitus with diabetic polyneuropathy; F03.90 Unspecified dementia, unspecified severity, without behavioral disturbance, psychotic disturbance, mood disturbance, and anxiety; K21.9 Gastro-esophageal reflux disease without esophagitis; I25.10 Atherosclerotic heart disease of native coronary artery without angina pectoris; R13.19 Other dysphagia; Z86.73 Personal history of transient ischemic attack (TIA), and cerebral infarction without residual deficits; I25.2 Old myocardial infarction; Z83.3 Family history of diabetes mellitus; Z82.49 Family history of ischemic heart disease and other diseases of the circulatory system; Z80.9 Family history of malignant neoplasm, unspecified; Z79.82 Long term (current) use of aspirin; Z79.899 Other long term (current) drug therapy; Z79.4 Long term (current) use of insulin; Z88.5 Allergy status to narcotic agent; Z88.0 Allergy status to penicillin; F41.1 Generalized anxiety disorder; Z85.048 Personal history of other malignant neoplasm of rectum, rectosigmoid junction, and anus; K29.70 Gastritis, unspecified, without bleeding

== ENCOUNTER 2019-05-08 20:57 | Inpatient (IN) | payer MEDICARE, MEDICAID ==
[~2019-05-08] VITALS: Ht 170.1 cm; Wt 73.1 kg
[~2019-05-08 20:57] MED LIST changes: +DOXYCYCLINE100 M3 PO; +ZOFRAN4 MG PO
[2019-05-08 21:09] VITALS: BP 132/70
[2019-05-08 21:31] LABS: BASO # 0.1 10*3/uL (0.0-0.1); BASO % 0.7 % (0.0-1.0); EOS # 0.4 10*3/uL (0.0-0.4); EOS % 4.2 % (1.0-4.0); HEMATOCRIT 30.8 % (42.0-52.0); HEMOGLOBIN 9.2 g/dl (14.0-18.0); LYMPH # 0.7 10*3/uL (1.3-4.4); LYMPH % 7.8 % (27.0-41.0); MEAN CELL VOLUME 95.1 fl (80.0-94.0); MEAN CORPUSCULAR HGB 28.4 pg (27.0-31.0); MEAN CORPUSCULAR HGB CONC 29.9 g/dl (33.0-37.0); MONO % 11.9 % (3.0-9.0); NEUT # 6.2 10*3/uL (2.3-7.9); NEUT % 74.8 % (47.0-73.0); PLATELET COUNT AUTOMATED 197 10*3/uL (130-400); RED BLOOD COUNT 3.24 10*6/uL (4.50-5.90); RED CELL DISTRI WIDTH 18.7 % (0-14.5); WHITE BLOOD COUNT 8.3 10*3/uL (4.8-10.8)
[2019-05-08 21:41] LABS: ACT PARTIAL THROMBO TIME 24.2 SECONDS (20.0-32.1); INTERNATIONAL NORM RATIO 1.1 (2.0-3.5)
[2019-05-08 21:47] LABS: ALBUMIN 2.5 gm/dl (3.1-4.5); CREATININE 2.06 mg/dL (0.70-1.30); POTASSIUM 5.7 mmol/L (3.5-5.1); TOTAL PROTEIN 7.3 gm/dL (6.4-8.2)
[2019-05-08 21:50] LABS: TROPONIN I 0.07 ng/ml (<0.045)
[2019-05-08 23:50] VITALS: BP 119/61
[2019-05-09] VITALS (8 sets, daily range): BP systolic 109–142; BP diastolic 50–72
[2019-05-09 01:02] LABS: CREATININE 1.98 mg/dL (0.70-1.30); POTASSIUM 5.1 mmol/L (3.5-5.1)
--- NOTE | 2019-05-09 01:15 | NUR ---
A 58, admitted to 4E, under the services of KERLINE Gambino DO with a diagnosis of ACUTE RENAL INJURY, CHF EXACERBATION. Chief complaint is SHORNTESS OF BREATH. Patient arrived via stretcher from ER. Monitor applied. Initial assessment completed. Vital signs taken and recorded. KERLINE GAMBINO DO notified of admission to the unit. Orders received. See assessment for past medical history, medications and allergies. Patient and/or family oriented to unit. [facility] visitation policy reviewed. Clothing/patient valuable form completed. RAMONA ACOSTA
--- NOTE | 2019-05-09 01:15 | NUR ---
PT CLEANED UP, NEW BRIEF APPLIED. PT HOB ELEVATED > 30 DEGREES. THROAT SUCTIONED PT SOUNDED VERY MOIST AND GARGLING. POX 100% ON 3L NC. BSG 172.
[2019-05-09] MEDS ORDERED: VITAMIN D350 MCG PO (01:19)
[2019-05-09] MEDS ORDERED: TYLENOL325 M3 PO (01:20)
[2019-05-09] MEDS ORDERED: LASIX40 MG PO (01:21)
[2019-05-09] MEDS ORDERED: GLUTOSE 1537.5 GM PO (01:23)
--- NOTE | 2019-05-09 01:23 | NUR ---
THIS RN REQUESTING CODE STATUS/ADVANCED DIRECTIVE INFORMATION CURRENT PAPERWORK SENT FROM [facility] DOES NOT SPECIFY. SPOKE TO LEAH RN AT [facility]. STATES SHE WILL REVIEW CHART AND FAX PAPERWORK WHEN FOUND. ALSO DISCUSSED PEG TUBE FEEDINGS. PER STAR, PT GETS CONTINUOUS FEEDINGS OF OSMOLITE 1.2 @ 65 CC/HR WITH 55 CC FLUSHES Q4H. STATES THESE WERE DISCONNECTED WHEN [facility] P[facility]ED [facility]IENT UP ON 05/08/19 AT 2041. ALSO DISCUSSED APPEARANCE OF TONGUE. PER STAR, PATIENT'S TONGUE HAS BEEN BLACK SINCE HE RETURNED TO [facility]. THIS IS NOT A NEW FINDING.
[2019-05-09] MEDS ORDERED: GLUCAGON EMERGEN1 M1 IJ (01:24)
[2019-05-09] MEDS ORDERED: MILK OF MA400 MG/5 M PO (01:27)
[2019-05-09] MEDS ORDERED: FLEET ENEMA 13133 ML R (01:30)
--- NOTE | 2019-05-09 01:36 | NUR ---
'S ANSWERING SERVICE NOTIFIED OF CONSULT. INFORMATION, INCLUDING CALL BACK NUMBER, LEFT WITH WAREHOUSE TEAM LEADER.
--- NOTE | 2019-05-09 01:40 | NUR ---
MED REC UP TO DATE PER PAPERWORK PROVIDED BY SWATHI SOLIMAN.
--- NOTE | 2019-05-09 02:28 | NUR ---
JAKY LIANG [id number] Please refer to the physician's history and physical for past medical history, comorbid conditions, and allergies. Diagnosis: ACUTE RENAL INJURY, ACUTE EXACERBATION OF CHF Emiliano Score: , WOUND DESCRIPTIONS: Wound Number: 1 Location of the wound: right lateral aspect of lower extremity Type of wound: DTI Size: 4.5cm x 2.0cm x <0.1cm Tunneling: none Undermining: none Sinus Tract: none Presence of Exudate: none Amount: None Color: Purple, red Odor: None Periwound Skin Appearance: Normal Wound edges: closed Pain (associated with wound): none at time of assessment How does patient state this happened? pt unable to state how this happened Wound Number: 2 Location of the wound: right heel Type of wound: DTI Size: 3.0cm x 2.5cm x <0.1cm Tunneling: none Undermining: none Sinus Tract: none Presence of Exudate: none Amount: None Color: Purple, red Odor: None Periwound Skin Appearance: Normal Wound edges: closed Pain (associated with wound): none at time of assessment How does patient state this happened? pt unable to state how this happened Wound Number: 3 Location of the wound: right great toe Type of wound: stage 1 Size: 0.5cm x 0.5cm x <0.1cm Tunneling: none Undermining: none Sinus Tract: none Presence of Exudate: none Amount: None Color: Red Odor: None Periwound Skin Appearance: Normal Wound edges: closed Pain (associated with wound): none at time of assessment How does patient state this happened? pt unable to state how this happened Wound Number: 4 Location of the wound: left heel Type of wound: DTI Size: 2.5cm x 2.5cm x <0.1cm Tunneling: none Undermining: none Sinus Tract: none Presence of Exudate: none Amount: None Color: Purple, red Odor: None Periwound Skin Appearance: Normal Wound edges: closed Pain (associated with wound): none at time of assessment How does patient state this happened? pt unable to state how this happened Wound Number: 5 Location of the wound: coccyx Type of wound: DTI Size: 6.0cm x 2.5cm x 0.6cm Tunneling: none Undermining: none Sinus Tract: none Presence of Exudate: Light Amount: Serosanguineous Color: Purple, red, yellow Odor: None Periwound Skin Appearance: Normal Wound edges: closed Pain (associated with wound): none at time of assessment How does patient state this happened? pt unable to state how this happened Wound Number: 6 Location of the wound: left gandhi Type of wound: Scab Thickness: Partial Size: 3.7cm x 0.6cm x <0.1cm Tunneling: none Undermining: none Sinus Tract: none Presence of Exudate: none Amount: None Color: Purple, red Odor: None Periwound Skin Appearance: Normal Wound edges: closed Pain (associated with wound): none at time of assessment How does patient state this happened? pt unable to state how this happened Wound Number: 7 Location of the wound: right lateral aspect of ankle Type of wound: stage 1 Size: 6.0cm x 1.5cm x <0.1cm Tunneling: none Undermining: none Sinus Tract: none Presence of Exudate: none Amount: None Color: Red Odor: None Periwound Skin Appearance: Normal Wound edges: closed Pain (associated with wound): none at time of assessment How does patient state this happened? pt unable to state how this happened Right 5th toe is red and blanchable at time of assessment. No open area noted to right 5th toe at time of assessment and no drainage noted to right 5th toe. Surface the patient is resting on: Isoflex SKIN PREVENTION RECOMMENDATION: 1. Pressure redistribution support surface as appropriate 2. Elevate heels 3. Remove boots/TEDS every shift and reapply 4. Head of bed 30 degrees as tolerated 5. Assess nutrition and hydration 6. Manage moisture 7. Avoid the use of containment devices while in bed 8. Use absorptive products on surfaces limit layers of linens on bed 9. Turn and reposition every 1-2 hours in bed and every 1 hour in chair as tolerated 10. Weight shifts every 15 minutes while up in chair 11. Offloading with pillows or device to keep heels elevated off bed 12. Monitor skin at least every shift 13. Inspect under medical devices twice a day WOUND TREATMENT RECOMMENDATIONS: Consult Alesha Giraldo RELIABILITY SPECIALIST- for possible debridement of coccyx Venous and arterail studies for bilateral lower extremities due to non-healing wounds. Consult podiatry for areas to bilateral lower extremities. Dressing change: Apply sureprep to right lateral lower extremity, right heel, left heel with nss and apply sureprep to wound allow time to dry and cover with optifoam gentle daily and prn for soiling. Dressing change: Apply sureprep to right medial aspect of great toe, right 5th toe and right lateral ankle cover area to right great toe and right 5th toe with bandaid and cover right lateral ankle with optifoam gentle daily and prn for soiling. DTI guidelines: Cleanse coccyx with nss and apply sureprep around the wound therahoney to wound bed and cover with optifoam sacral gentle daily and prn for soiling.
--- NOTE | 2019-05-09 02:33 | NUR ---
WOUND PHOTOS TAKEN PER POLICY. PEG TUBE PLACEMENT CHECKED VIA AIR BOLUS. 0 CCs RESIDUAL NOTED. ASPIRIN ADMINISTERED VIA PEG TUBE PER ORDER. 100 CCs WATER GIVEN THROUGH PEG TUBE WELL.
--- NOTE | 2019-05-09 03:21 | NUR ---
NOTIFIED OF TROPONIN 0.102. AWARE THAT CARDIOLOGY HAS BEEN CONSULTED, BUT NO RETURN PHONE CALL TONIGHT.
--- NOTE | 2019-05-09 04:05 | NUR ---
Upon discharge recommend patient to follow up for wound care in outpatient setting continue current wound care orders at discharging facility.
--- NOTE | 2019-05-09 04:16 | NUR ---
PER ER, NELIA-HENRY AGUILAR & SPOKE TO DR.URWA JORDAN FROM [facility] REGARDING EKG. ELOINA STATES THAT THE ANSWERING SERVICE DIRECTLY CONNECTS WITH OTOLARYNGOLOGIST WHEN STEMI SELECTION IS CHOSEN ON ANSWERING SERVICE MENU.
--- NOTE | 2019-05-09 05:37 | NUR ---
PER , ORDER OSMOLITE FEEDINGS PT TAKES AT [place].
[2019-05-09 06:14] LABS: BASO # 0.1 10*3/uL (0.0-0.1); BASO % 0.7 % (0.0-1.0); EOS # 0.5 10*3/uL (0.0-0.4); EOS % 4.6 % (1.0-4.0); HEMATOCRIT 27.1 % (42.0-52.0); HEMOGLOBIN 8.2 g/dl (14.0-18.0); LYMPH # 0.5 10*3/uL (1.3-4.4); LYMPH % 4.8 % (27.0-41.0); MEAN CELL VOLUME 93.4 fl (80.0-94.0); MEAN CORPUSCULAR HGB 28.3 pg (27.0-31.0); MEAN CORPUSCULAR HGB CONC 30.3 g/dl (33.0-37.0); MEAN PLATELET VOLUME 9.9 fl (9.6-12.3); MONO # 1.4 10*3/uL (0.1-1.0); MONO % 13.6 % (3.0-9.0); NEUT # 7.8 10*3/uL (2.3-7.9); NEUT % 75.5 % (47.0-73.0); PLATELET COUNT AUTOMATED 191 10*3/uL (130-400); RED CELL DISTRI WIDTH 18.9 % (0-14.5); WHITE BLOOD COUNT 10.3 10*3/uL (4.8-10.8)
[2019-05-09 06:24] LABS: CREATININE 1.98 mg/dL (0.70-1.30); POTASSIUM 5.2 mmol/L (3.5-5.1)
--- NOTE | 2019-05-09 06:26 | NUR ---
PT DOES NOT WANT TO OPEN EYES WHEN ADDRESSED BY RN. RN ATTEMPTED TO USE STERNAL RUB TO GET PT TO RESPOND. PT GRIMACES, BUT DOES NOT OPEN EYES. STAFF PULLED PT UP IN BED. PT OPENED EYES WHEN BEING REPOSITIONED. RN SAYS "JAKY" PT MOANS AND REPLIES "YEAH." PT PULLED UP, REPOSITIONED ON R SIDE, HOB ELEVATED >30 DEGREES. PEG FLUSHED WITH 120 CCS FLUID. BSG 164. 3 UNITS GIVEN PER SLIDING SCALE. WILL GET OSMOLITE FEEDINGS FROM DIETARY PER ORDER.
--- NOTE | 2019-05-09 06:35 | NUR ---
'S ANSWERING SERVICE CALLED REGARDING CONSULT. CALL BACK NUMBER LEFT WITH BUSINESS DEAN, ELOINA.
--- NOTE | 2019-05-09 06:36 | NUR ---
NOTIFIED OF TROPONIN 0.091
--- NOTE | 2019-05-09 07:34 | NUR ---
Patient comes in from [facility], he is a intermediate resident. Updated clinicals faxed for review, patient is ok to return when medically stable
--- NOTE | 2019-05-09 07:35 | NUR ---
NOTIFIED OF MULTIPLE WOUNDS AND NEEDING ORDERS. DISCUSSED WOUND CARE RECOMMENDATIONS. NEW ORDERS TO FOLLOW.
--- NOTE | 2019-05-09 08:42 | NUR ---
PODIATRY RESIDENT NOTIFIED OF CONSULT, BENSON YATES IS AWARE OF THE CONSULT AND IN TO SEE PATIENT RE: WOUND CARE.
--- NOTE | 2019-05-09 08:43 | NUR ---
Dr. Ledezma notified of wound care recommendations.
--- NOTE | 2019-05-09 09:41 | NUR ---
DR. LARA IN TO SEE PATIENT RE: PLAN OF CARE, OBTAINED ORDERS FOR DIETARY CONSULT RE: PATIENT ON TUBE FEEDING WITH OSMOLYTE, REQUIRES A LOWER POTASSIUM SUPPLEMENT, INSERT COY CATHETER, AND OBTAIN KUB TO ASSESS STOOL PATTERNS.
--- NOTE | 2019-05-09 11:01 | NUR ---
UPON INSERTION OF COY CATHETER, BLOODY DRAINAGE NOTED, NO URINE. PATIENT HAS BEEN INCONTINENT OF CLEAR LIGHT YELLOW URINE PRIOR TO THIS. DR. GREEN NOTIFIED OF THIS, OBTAINED ORDER TO IRRIGATE THE COY CATHETER. WITH IRRIGATION WITH NSS, LARGE CLOT NOTED TO DRAINAGE BAG, IRRIGATED WITH 120ML, MINIMAL URINE NOTED TO TUBING. DR. SANTANA NOTIFIED OF THIS DURING ROUNDING. OBTAINED ORDER TO IRRIGATE AGAIN. WITH IRRIGATION OF 120ML, BLOODY URINE NOTED DRAINING AROUND THE URETHRA. OBTAINED ORDER TO DISCONTINUE THE COY, NOTIFY DR. LARA, AND BLADDER SCAN [id number]. UPON REMOVAL OF THE COY, LARGE CLOT NOTED TO CATHETER TIP, AND ALSO ONE CLOT NOTED TO TIP OF URETHRA AND REMOVED MANUALLY. PAGING DR. LARA.
--- NOTE | 2019-05-09 13:07 | NUR ---
PATIENT BLADDER SCANNED FOR 343ML, THEN INCONTINENT FOR BLOODY URINE WITH CLOTS. BLADDER SCANNED ONE HOUR LATER FOR 217ML. PATIENT CONTINUES TO VOID BLOODY URINE W/CLOTS TO BRIEF.
--- NOTE | 2019-05-09 14:38 | NUR ---
PER DR. GIVENS, PATIENT IN NEED OF UROLOGIST AND TRANSFER TO [facility]. SPOKE WITH PATIENT'S ABOUT THIS AND OBTAINED TELEPHONE CONSENT WITH WITNESS TO TRANSFER TO [facility]. DR. GREEN NOTIFIED, ALSO INFORMED PATIENT'S BROTHER OF THE PLAN, WILL UPDATE HIM WITH FURTHER DETAILS.
[2019-05-09] MEDS ORDERED: APRESOLINE10 MG PO (14:57)
[2019-05-09] MEDS ORDERED: METOPROLOL SUCC25 M2 PO (14:57)
[2019-05-09] MEDS ORDERED: IMDUR SA30 MG PO (14:57)
--- NOTE | 2019-05-09 18:07 | NUR ---
PATIENT CONTINUES TO PASS LARGE CLOTS VIA URETHRA.
--- NOTE | 2019-05-09 19:42 | NUR ---
NOTIFIED OF NEEDING DISCHARGE ORDER TO TRANSFER PT TO [facility]. NEW ORDERS TO FOLLOW PER .
--- NOTE | 2019-05-09 20:17 | NUR ---
SPOKE TO ELOINA, RN AT [facility]. STATES BED HAS BEEN ASSIGNED. PT GOING TO ROOM 662 BED 2. ELOINA TRANSFERRED THIS RN TO ONE CALL TO CLARIFY TRANSFER & DISCUSS ACCEPTING PHYSICIAN. MATHEMATICAL STATISTICIAN CONFIRMED PT IS GOING TO UN[facility] ROOM 662 BED 2. IS ACCEPTING PHYSICIAN. OKAY TO SET UP TRANSPORT AT THIS TIME. NURSE TO NURSE REPORT GIVEN TO DERREK JOHN. AWARE THAT TRANSPORT HAS NOT YET BEEN SET UP. THIS RN WILL CALL REPORT NUMBER WHEN PT LEAVES [facility]. PATIENT'S BROTHER, FLORI, REQUESTING TO BE UPDATED ON PATIENT'S PLAN OF CARE. FLORI'S JUSTIN CALLED AND UPDATED PER REQUEST. THIS RN WILL CALL AGAIN WHEN PT LEAVES [facility]. REPORT NUMBER [phone] FLORI FLANAGAN (BROTHER) [phone]
--- NOTE | 2019-05-09 21:17 | NUR ---
PT'S BRIEF CHANGED AND NEW CHUCKS/BED LINENS PROVIDED. WOUND DRESSING TO COCCYX SOILED. REMOVED AND CHANGED PER ORDER. PT TOLERATED WELL. OKAY TO GIVE HEPARIN SUBQ PER . AWARE OF 2 LARGE CLOTS PASSED IN BRIEF. PATIENT DID HAVE SOME URINE IN BRIEF & UP BACK. PEG TUBE PLACEMENT VERIFIED VIA AIR BOLUS. MEDICATIONS SCHEDULED FOR 2200 ADMINISTERED THROUGH PEG PER ORDER. 100 CC FREE WATER FLUSH GIVEN WELL. CONTINUOUS FEEDINGS RECONNECTED AND RUNNING AT 65 CC/HR. BLADDER SCANNED FOR 454. AWARE. NO NEW ORDERS. [facility] SCHEDULED TO COME AROUND 2129.
--- NOTE | 2019-05-09 22:02 | NUR ---
[facility] HERE TO TAKE PATIENT TO [facility]. DERREK AT [facility] NOTIFIED OF DEPARTURE. DISCUSSED BLADDER SCAN SHOWING 454 CCs. ALSO DISCUSSED CLOTS & HEPARIN GIVEN SUB-Q PER 'S ORDER. PATIENT'S BROTHER FLORI REQUESTING TO BE CALLED. PT'S SISTER IN LAW, JUSTIN, NOTIFIED FLORI WAS NOT HOME.
== END 2019-05-09 22:02 | disposition short-term general hospital (02) | DRG 292 ==
LOC: ED 20:57 → EDHOLD 23:25 → 4E 23:25
PROVIDERS: Emergency Medicine; Student in an Organized Health Care Education/Training Program; ADMIT Internal Medicine
DX: I50.43 Acute on chronic combined systolic (congestive) and diastolic (congestive) heart failure (principal); N17.9 Acute kidney failure, unspecified; F32.3 Major depressive disorder, single episode, severe with psychotic features; E44.0 Moderate protein-calorie malnutrition; E87.5 Hyperkalemia; D53.9 Nutritional anemia, unspecified; D72.810 Lymphocytopenia; E87.8 Other disorders of electrolyte and fluid balance, not elsewhere classified; F03.90 Unspecified dementia, unspecified severity, without behavioral disturbance, psychotic disturbance, mood disturbance, and anxiety; K21.9 Gastro-esophageal reflux disease without esophagitis; I25.10 Atherosclerotic heart disease of native coronary artery without angina pectoris; E66.3 Overweight; R13.10 Dysphagia, unspecified; H10.33 Unspecified acute conjunctivitis, bilateral; E78.5 Hyperlipidemia, unspecified; E11.22 Type 2 diabetes mellitus with diabetic chronic kidney disease; N18.3 Chronic kidney disease, stage 3 (moderate); E11.40 Type 2 diabetes mellitus with diabetic neuropathy, unspecified; N36.8 Other specified disorders of urethra; F41.9 Anxiety disorder, unspecified; L89.899 Pressure ulcer of other site, unspecified stage; L89.150 Pressure ulcer of sacral region, unstageable; E66.9 Obesity, unspecified; E11.65 Type 2 diabetes mellitus with hyperglycemia; R32 Unspecified urinary incontinence; Z86.73 Personal history of transient ischemic attack (TIA), and cerebral infarction without residual deficits; I25.2 Old myocardial infarction; Z88.0 Allergy status to penicillin; Z88.5 Allergy status to narcotic agent; Z85.048 Personal history of other malignant neoplasm of rectum, rectosigmoid junction, and anus; Z82.49 Family history of ischemic heart disease and other diseases of the circulatory system; Z82.3 Family history of stroke; Z83.3 Family history of diabetes mellitus; Z80.8 Family history of malignant neoplasm of other organs or systems; Z79.899 Other long term (current) drug therapy; Z93.1 Gastrostomy status; Z68.25 Body mass index [BMI] 25.0-25.9, adult

== ENCOUNTER 2019-05-20 12:31 | Inpatient (IN) | payer MEDICARE, MEDICAID ==
[~2019-05-20] VITALS: Ht 170.1 cm; Wt 71.2 kg
[~2019-05-20 12:31] MED LIST changes: +APRESOLINE10 MG PO; +IMDUR SA30 MG PO; +LASIX40 MG PO; +METOPROLOL SUCC25 M2 PO; +MILK OF MA400 MG/5 M PO; +TYLENOL325 M3 PO; +VITAMIN D350 MCG PO
[2019-05-20 12:35] VITALS: BP 131/61
[2019-05-20] MEDS ORDERED: ESCITALOPRAM OX20 MG PO (12:48)
[2019-05-20] MEDS ORDERED: LASIX20 MG PO (12:50)
[2019-05-20] MEDS ORDERED: NOVOLOG10 ML SC (12:52)
[2019-05-20] MEDS ORDERED: RISPERIDONE0.25 M2 PO (12:53)
[2019-05-20] MEDS ORDERED: DEPAKENE250 M1 PO (12:56)
[2019-05-20 13:07] VITALS: BP 114/55
[2019-05-20 14:05] LABS: BASO # 0.1 10*3/uL (0.0-0.1); BASO % 1.3 % (0.0-1.0); EOS # 0.6 10*3/uL (0.0-0.4); EOS % 7.3 % (1.0-4.0); HEMATOCRIT 29.6 % (42.0-52.0); HEMOGLOBIN 8.7 g/dl (14.0-18.0); LYMPH % 11.7 % (27.0-41.0); MEAN CELL VOLUME 100.7 fl (80.0-94.0); MEAN CORPUSCULAR HGB 29.6 pg (27.0-31.0); MEAN CORPUSCULAR HGB CONC 29.4 g/dl (33.0-37.0); MEAN PLATELET VOLUME 9.6 fl (9.6-12.3); MONO # 1.2 10*3/uL (0.1-1.0); MONO % 14.8 % (3.0-9.0); NEUT # 5.3 10*3/uL (2.3-7.9); NEUT % 64.1 % (47.0-73.0); NUCLEATED RED BLOOD CELL 0.1 10*3/uL (0.0-0.0); NUCLEATED RED BLOOD CELL 0.6 % (0.0-0.0); PLATELET COUNT AUTOMATED 193 10*3/uL (130-400); RED BLOOD COUNT 2.94 10*6/uL (4.50-5.90); RED CELL DISTRI WIDTH 22.1 % (0-14.5); WHITE BLOOD COUNT 8.3 10*3/uL (4.8-10.8)
[2019-05-20 14:15] LABS: ACT PARTIAL THROMBO TIME 29.1 SECONDS (20.0-32.1); INTERNATIONAL NORM RATIO 1.3 (2.0-3.5)
[2019-05-20 14:19] LABS: ALBUMIN 2.6 gm/dl (3.1-4.5); CREATININE 2.13 mg/dL (0.70-1.30); POTASSIUM 5.1 mmol/L (3.5-5.1); TOTAL PROTEIN 7.1 gm/dL (6.4-8.2)
[2019-05-20 14:27] LABS: TROPONIN I 0.054 ng/ml (<0.045)
[2019-05-20 14:35] VITALS: BP 113/62
[2019-05-20 15:57] VITALS: BP 116/54
[2019-05-20 17:45] VITALS: BP 130/58
[2019-05-20 20:00] VITALS: BP 132/72
[2019-05-21] VITALS: BP 129/70
[2019-05-21 06:33] LABS: BASO # 0.1 10*3/uL (0.0-0.1); BASO % 1.2 % (0.0-1.0); EOS # 0.8 10*3/uL (0.0-0.4); HEMATOCRIT 30.1 % (42.0-52.0); HEMOGLOBIN 8.9 g/dl (14.0-18.0); LYMPH # 0.8 10*3/uL (1.3-4.4); LYMPH % 10.3 % (27.0-41.0); MEAN CORPUSCULAR HGB 29.9 pg (27.0-31.0); MEAN CORPUSCULAR HGB CONC 29.6 g/dl (33.0-37.0); MEAN PLATELET VOLUME 9.6 fl (9.6-12.3); MONO # 0.9 10*3/uL (0.1-1.0); MONO % 11.2 % (3.0-9.0); NEUT # 5.2 10*3/uL (2.3-7.9); NEUT % 66.7 % (47.0-73.0); NUCLEATED RED BLOOD CELL 0.4 % (0.0-0.0); PLATELET COUNT AUTOMATED 194 10*3/uL (130-400); RED BLOOD COUNT 2.98 10*6/uL (4.50-5.90); RED CELL DISTRI WIDTH 21.9 % (0-14.5); WHITE BLOOD COUNT 7.8 10*3/uL (4.8-10.8)
[2019-05-21 07:01] LABS: CREATININE 2.23 mg/dL (0.70-1.30); PHOSPHOROUS 4.1 mg/dL (2.5-4.9); POTASSIUM 5.5 mmol/L (3.5-5.1)
[2019-05-21 08:00] VITALS: BP 108/56
[2019-05-21 12:00] VITALS: BP 121/54
[2019-05-21 16:00] VITALS: BP 144/64
[2019-05-21] MEDS ORDERED: NEURONTIN100 MG PO (17:20)
[2019-05-21 18:23] LABS: ABG BASE EXCESS 0.9 mmol/L (-2.0-2.0); ARTERIAL BLOOD GAS PH 7.429 (7.35-7.45)
[2019-05-21 20:00] VITALS: BP 126/52
[2019-05-22] VITALS: BP 128/55
[2019-05-22 06:16] LABS: BASO # 0.1 10*3/uL (0.0-0.1); EOS # 1.2 10*3/uL (0.0-0.4); EOS % 13.2 % (1.0-4.0); HEMATOCRIT 30.5 % (42.0-52.0); LYMPH # 0.9 10*3/uL (1.3-4.4); LYMPH % 9.3 % (27.0-41.0); MEAN CELL VOLUME 101.7 fl (80.0-94.0); MEAN CORPUSCULAR HGB CONC 29.5 g/dl (33.0-37.0); MONO # 1.1 10*3/uL (0.1-1.0); MONO % 11.5 % (3.0-9.0); NEUT # 5.9 10*3/uL (2.3-7.9); NEUT % 64.6 % (47.0-73.0); NUCLEATED RED BLOOD CELL 0.2 % (0.0-0.0); PLATELET COUNT AUTOMATED 205 10*3/uL (130-400); WHITE BLOOD COUNT 9.2 10*3/uL (4.8-10.8)
[2019-05-22 06:41] LABS: ALBUMIN 2.5 gm/dl (3.1-4.5); CREATININE 2.12 mg/dL (0.70-1.30)
[2019-05-22 06:44] LABS: POTASSIUM 4.5 mmol/L (3.5-5.1); TOTAL PROTEIN 6.7 gm/dL (6.4-8.2)
[2019-05-22 08:00] VITALS: BP 145/64; BP 152/86
[2019-05-22 12:00] VITALS: BP 108/57
[2019-05-22 16:00] VITALS: BP 133/56
[2019-05-22 20:00] VITALS: BP 114/52
[2019-05-23] VITALS: BP 134/95
[2019-05-23 07:11] LABS: ALBUMIN 2.4 gm/dl (3.1-4.5); TOTAL PROTEIN 6.6 gm/dL (6.4-8.2)
[2019-05-23 08:00] VITALS: BP 138/58
[2019-05-23 12:00] VITALS: BP 116/50
[2019-05-23 16:00] VITALS: BP 112/52
[2019-05-23 20:00] VITALS: BP 130/65
[2019-05-24] VITALS: BP 144/76
[2019-05-24 06:45] LABS: BASO # 0.1 10*3/uL (0.0-0.1); BASO % 0.9 % (0.0-1.0); EOS # 1.3 10*3/uL (0.0-0.4); EOS % 12.8 % (1.0-4.0); HEMATOCRIT 30.2 % (42.0-52.0); HEMOGLOBIN 8.6 g/dl (14.0-18.0); LYMPH # 0.9 10*3/uL (1.3-4.4); LYMPH % 8.5 % (27.0-41.0); MEAN CELL VOLUME 103.4 fl (80.0-94.0); MEAN CORPUSCULAR HGB 29.5 pg (27.0-31.0); MEAN CORPUSCULAR HGB CONC 28.5 g/dl (33.0-37.0); MEAN PLATELET VOLUME 10.2 fl (9.6-12.3); MONO # 1.2 10*3/uL (0.1-1.0); MONO % 11.7 % (3.0-9.0); NEUT # 6.9 10*3/uL (2.3-7.9); NEUT % 65.7 % (47.0-73.0); PLATELET COUNT AUTOMATED 223 10*3/uL (130-400); RED BLOOD COUNT 2.92 10*6/uL (4.50-5.90); RED CELL DISTRI WIDTH 21.6 % (0-14.5); WHITE BLOOD COUNT 10.4 10*3/uL (4.8-10.8)
[2019-05-24 07:12] LABS: ALBUMIN 2.4 gm/dl (3.1-4.5); CREATININE 1.94 mg/dL (0.70-1.30); POTASSIUM 4.9 mmol/L (3.5-5.1); TOTAL PROTEIN 6.6 gm/dL (6.4-8.2)
[2019-05-24 08:00] VITALS: BP 129/52
[2019-05-24 12:00] VITALS: BP 127/58
[2019-05-24 16:00] VITALS: BP 99/49
[2019-05-24 20:00] VITALS: BP 111/43
[2019-05-25] VITALS: BP 127/62
[2019-05-25 06:14] LABS: BASO % 0.4 % (0.0-1.0); EOS # 1.3 10*3/uL (0.0-0.4); EOS % 12.9 % (1.0-4.0); HEMATOCRIT 29.4 % (42.0-52.0); HEMOGLOBIN 8.4 g/dl (14.0-18.0); LYMPH # 0.6 10*3/uL (1.3-4.4); LYMPH % 6.4 % (27.0-41.0); MEAN CELL VOLUME 102.8 fl (80.0-94.0); MEAN CORPUSCULAR HGB 29.4 pg (27.0-31.0); MEAN CORPUSCULAR HGB CONC 28.6 g/dl (33.0-37.0); MEAN PLATELET VOLUME 10.3 fl (9.6-12.3); MONO % 10.3 % (3.0-9.0); NEUT # 6.9 10*3/uL (2.3-7.9); NEUT % 69.7 % (47.0-73.0); PLATELET COUNT AUTOMATED 202 10*3/uL (130-400); RED BLOOD COUNT 2.86 10*6/uL (4.50-5.90); RED CELL DISTRI WIDTH 21.3 % (0-14.5)
[2019-05-25 06:54] LABS: ALBUMIN 2.3 gm/dl (3.1-4.5); CREATININE 1.84 mg/dL (0.70-1.30); PHOSPHOROUS 3.9 mg/dL (2.5-4.9); POTASSIUM 4.9 mmol/L (3.5-5.1); TOTAL PROTEIN 6.5 gm/dL (6.4-8.2)
[2019-05-25 08:00] VITALS: BP 112/58
[2019-05-25] MEDS ORDERED: BRIN10TA PO (11:10)
[2019-05-25] MEDS ORDERED: LASIX40 MG PO (11:10)
== END 2019-05-25 13:00 | disposition other institution (70) | DRG 291 ==
LOC: ED 12:31 → EDHOLD 15:31 → 4E 15:31
PROVIDERS: Internal Medicine; Physician Assistant; Registered Nurse; Student in an Organized Health Care Education/Training Program; ADMIT Internal Medicine
DX: I13.0 Hypertensive heart and chronic kidney disease with heart failure and stage 1 through stage 4 chronic kidney disease, or unspecified chronic kidney disease (principal); I50.23 Acute on chronic systolic (congestive) heart failure; E43 Unspecified severe protein-calorie malnutrition; N17.0 Acute kidney failure with tubular necrosis; I50.21 Acute systolic (congestive) heart failure; E87.0 Hyperosmolality and hypernatremia; F33.3 Major depressive disorder, recurrent, severe with psychotic symptoms; D53.9 Nutritional anemia, unspecified; E11.65 Type 2 diabetes mellitus with hyperglycemia; E87.8 Other disorders of electrolyte and fluid balance, not elsewhere classified; E83.41 Hypermagnesemia; R79.82 Elevated C-reactive protein (CRP); E78.2 Mixed hyperlipidemia; N18.3 Chronic kidney disease, stage 3 (moderate); E11.22 Type 2 diabetes mellitus with diabetic chronic kidney disease; R32 Unspecified urinary incontinence; K21.9 Gastro-esophageal reflux disease without esophagitis; I25.10 Atherosclerotic heart disease of native coronary artery without angina pectoris; E87.5 Hyperkalemia; L89.150 Pressure ulcer of sacral region, unstageable; L89.629 Pressure ulcer of left heel, unspecified stage; L89.619 Pressure ulcer of right heel, unspecified stage; F03.90 Unspecified dementia, unspecified severity, without behavioral disturbance, psychotic disturbance, mood disturbance, and anxiety; I25.2 Old myocardial infarction; Z85.038 Personal history of other malignant neoplasm of large intestine; Z88.0 Allergy status to penicillin; Z88.5 Allergy status to narcotic agent; Z79.899 Other long term (current) drug therapy; Z79.82 Long term (current) use of aspirin; Z82.49 Family history of ischemic heart disease and other diseases of the circulatory system; Z83.3 Family history of diabetes mellitus; Z80.9 Family history of malignant neoplasm, unspecified; Z86.73 Personal history of transient ischemic attack (TIA), and cerebral infarction without residual deficits